=== PATIENT | female | born 1985 | race Caucasian/White ===

== ENCOUNTER 2023-09-25 07:03 | Inpatient (IN) | payer OTHER, SELFPAY ==
[2023-09-25] VITALS (28 sets, daily range): BP systolic 95–121; BP diastolic 48–77; PULSE 109–137; RESP 20–40; TEMP 36.4–39.9; O2SAT 86–98; BMI 36.8; BMI 39.7
--- NOTE | 2023-09-25 07:13 | EKG12_ITS ---
Test Reason : SOB Blood Pressure : / mmHG Vent. Rate : 134 BPM Atrial Rate : 134 BPM P-R Int : 130 ms QRS Dur : 090 ms QT Int : 306 ms P-R-T Axes : 041 088 -02 degrees QTc Int : [address] & T wave abnormality, consider anterior ischemia Abnormal ECG Confirmed by DAYAMI HOPPER, KEON ([id number]), associate entertainment editor JOSE L ALBA ([id number]) on 09/26/2023 5:57:13 AM Referred By: Confirmed By:KEON STOCK MD
--- NOTE | 2023-09-25 07:13 | RAD_ITS ---
EXAM: XR CHEST, 1 VIEW CLINICAL INDICATION: Shortness of breath TECHNIQUE: 2 portable upright frontal views of the chest are obtained at 7:29 and 7:31 AM. COMPARISON: No relevant prior studies available. FINDINGS: Patient is rotated to the right. LUNGS AND PLEURAL SPACES: Asymmetric moderate patchy airspace disease noted throughout the right lung, with sparing of the apex, consistent with pneumonia. Slight blunting of the right lateral costophrenic angle, consistent with a very small right pleural effusion. The left lung is clear. No pneumothorax. No left pleural effusion. HEART: Heart size is borderline enlarged with normal pulmonary vasculature. MEDIASTINUM: Thoracic aorta is minimally elongated. BONES/JOINTS: Thoracic levoscoliosis, probably positional. SOFT TISSUES: Unremarkable. RAD/Chest 1 View (Portable) IMPRESSION: Findings of extensive pneumonia within the right lung. Electronically Signed: Chay Rebollar MD at 7:54 EST ,
--- NOTE | 2023-09-25 07:15 | EX.ED.DYSGE1 ---
HPI History of Present Illness Chief Complaint: Shortness of Breath Narrative Narrative: 87-year-old female brought in by EMS. History and physical is limited secondary to her autism and at times she is nonverbal. History comes from mother. She states that she has been sick for the last 2 days. Yesterday she had a fever of 101 ?F. She last received an antipyretic yesterday evening. This morning, mother noticed that patient's pulse ox was low. She has a history of asthma and has had increased difficulty breathing. Her pulse ox was in the 80s, around 89%. Patient also had a fever this morning. They state that she is not eating much yesterday and was mildly listless as well. [facility] Medical History (Updated 09/25/23 @ 10:52 by Aranza Frias) Asthma Autism Hormonal disorder Sleep apnea Home Medications Bifidobacterium infantis 4 mg capsule (Align) 4 mg PO DAILY [facility] 09/25/23 [History Last Taken 09/24/23] albuterol sulfate 2.5 mg/3 mL (0.083 %) solution for nebulization 2.5 mg continuous nebulization Q6H PRN shortness of breath 09/25/23 [History Last Taken 09/24/23] albuterol sulfate 90 mcg/actuation aerosol inhaler 1 inh inhalation Q6H PRN shortness of breath 09/25/23 [History Last Taken 09/24/23] artificial tears with lanolin eye ointment 1 applic EACH EYE DAILY dry eye relief 09/25/23 [History Last Taken 09/24/23] cetirizine 10 mg tablet 10 mg PO DAILY allergies 09/25/23 [History Last Taken 09/24/23] famotidine 20 mg tablet 20 mg PO QHS acid reflux 09/25/23 [History Last Taken 09/24/23] fluticasone propionate 45 mcg-salmeterol 21 mcg/actuation HFA inhaler (Advair HFA) 2 inh inhalation Q12H shortness of breath 09/25/23 [History Last Taken 09/24/23] fluticasone propionate 50 mcg/actuation nasal spray,suspension 2 spray intranasal DAILY nasal congestion 09/25/23 [History Last Taken 09/24/23] meclizine 25 mg chewable tablet 25 mg PO DAILY PRN vertigo 09/25/23 [History Last Taken Unknown] metformin 1,000 mg tablet 1,000 mg PO BID hormones 09/25/23 [History Last Taken 09/24/23] montelukast 10 mg tablet 10 mg PO QPM allergies 09/25/23 [History Last Taken 09/24/23] norethindrone (contraceptive) 0.35 mg tablet (Ana Rosa) 0.35 mg PO DAILY hormones 09/25/23 [History Last Taken 09/24/23] Allergy/AdvReac Type Severity Reaction Status Date / Time Sulfa (Sulfonamide Allergy Mild Rash Verified 09/25/23 07:14 Antibiotics) Social History Smoking Status: Never smoker ROS ROS ED ROS Narrative Limited secondary to autism. Provided by mother. Constitutional: Positive fever, no chills. Decreased activity and appetite. HEENT: No sore throat. No neck pain. No loss of vision. No rhinorrhea. Cardiovascular: No chest pain. No palpitations. No pedal edema. Respiratory: Occasional cough, positive shortness of breath. Abdominal: No abdominal pain. No nausea. No vomiting. Genitourinary: No dysuria. No hematuria. Musculoskeletal: No myalgias. No arthralgias. Neurologic: No headaches. No dizziness. No lightheadedness. Skin: No rash. No change in color. Psychiatric: No depression. No anxiety. EXAM Physical Exam Narrative Exam Narrative: Temperature 103.9 degrees axillary vital signs noted. HEENT: Normocephalic. Atraumatic. PERRL, EOMI. Neck soft and supple. No point tenderness or step off. Cardiovascular: Tachycardia at 133 bpm. No murmurs, rubs, or gallops appreciated. Respiratory: No tachypnea. Lungs clear to auscultation bilaterally. Breath sounds bilateral bases right greater than left. Gastrointestinal: Abdomen soft, nontender, with normoactive bowel sounds. No rebound or guarding. Neurological: Awake. Alert. Less. Nonfocal, nonlateralizing. Skin: No rash. Normal color. No pallor. Musculoskeletal: No pedal edema. Const Vital Signs: 09/25/23 07:04 09/25/23 07:09 09/25/23 07:15 Temperature 103.9 F H 103.9 F H Temperature Source Axillary Axillary Pulse Rate 133 H 137 H Respiratory Rate 30 H 32 H Respiratory Effort Short of Breath Labored Respiratory Depth Deep Respiratory Pattern Hyperpnea Blood Pressure 119/54 L 102/59 L Blood Pressure Mean 75 73 Pulse Ox 86 90 Oxygen Delivery Method Room Air Nasal Cannula Nasal Cannula Oxygen Flow Rate (L/min) 4 4 09/25/23 07:19 09/25/23 07:27 09/25/23 07:27 Temperature Temperature Source Pulse Rate 131 H Respiratory Rate 27 H Respiratory Effort Respiratory Depth Respiratory Pattern Tachypnea Blood Pressure Blood Pressure Mean Pulse Ox 93 94 Oxygen Delivery Method Nasal Cannula Nasal Cannula Oxygen Flow Rate (L/min) 4 4 09/25/23 08:07 09/25/23 08:54 Temperature 102.8 F H 98.8 F Temperature Source Axillary Axillary Pulse Rate 128 H 113 H Respiratory Rate 20 H 23 H Respiratory Effort Respiratory Depth Respiratory Pattern Blood Pressure 99/48 L 102/52 L Blood Pressure Mean 65 68 Pulse Ox 96 98 Oxygen Delivery Method Nasal Cannula Nasal Cannula Oxygen Flow Rate (L/min) 4 4 Sepsis Attestation Sepsis Alert: Yes Sepsis Attestation: Agree w/Sepsis Date exam was performed: 09/25/23 Time exam was performed: 08:15 Possible Source of Sepsis: Pulmonary Sepsis Organ Dysfunction Criteria Present: Lactic Acid > 2 mmol/L Supportive Findings: X-ray with severe pneumonia right lung, consistent tachycardia. Transient dip of blood pressure systolically to 99. Fluid Resuscitation Fluid resuscitation indicated?: Yes Fluid Resuscitation ordered: 30 ml/kg fluid bolus ordered Amount of fluid ordered: 2,500 Sepsis Note Date exam was performed: 09/25/23 Time exam was performed: 08:48 Sepsis Attestation: Sepsis re-evaluation was performed Response to fluids: Fluid responsive hypotension MDM MDM MDM Narrative Medical decision making narrative: Given her fever, and tachycardia and reported this of breath with history of asthma, concern would be for pneumonia versus upper respiratory infection. UTI is also on the differential but lower probability based on the history and physical. She will be given Tylenol orally for her fever. Sepsis workup was pursued including blood cultures. Initially she will be bolused 1 L. She will be swabbed for COVID, influenza, and RSV. Chest x-ray in 1 view obtained to help rule out pneumonia. I will also obtain a lactic acid and basic laboratory work/sepsis laboratory work. She was hypoxic on room air at 86%. She was placed on 4 L nasal cannula with borderline hypoxia at 90 to 91%. She will be given an albuterol aerosolized treatment. EKG was obtained and interpreted by myself independently as sinus tachycardia at [address]pm with out acute ST changes, although she may have rate dependent ST depression in V3 through V5. Reviewed her laboratory work and she has a leukocytosis of 18.6, hemoglobin normal at 14.4, hematocrit 42.9, platelet count 295. INR is 1.3, electrolyte panel is grossly unremarkable with a sodium normal at 136 and potassium 3.8. BUN normal at 12 with creatinine 0.83. Glucose is elevated at 168 but she has a normal anion gap of 6. AST normal at 23, ALT 26. Urinalysis is negative for infection with WBC 0-5 on microanalysis and negative nitrites. Chest x-ray in 1 view interpreted by myself shows pneumonia of the right lung that is more extensive. This is consistent with her examination of diminished breath sounds at the bilateral bases but right greater than left. This may also explain her hypoxia that has been corrected with 4 L of nasal cannula. She is currently satting 96% on 4 L. Her lactic acid is elevated at 2.1. Given her SIRS criteria, and source of infection with pneumonia, sepsis alert was instituted. She was started on antibiotics in the form of azithromycin and Rocephin. I do have concern given her lethargy for aspiration so Unasyn was also added. At this point in time, patient will be discussed with the hospitalist for admission. Disposition is admit in guarded condition. Of note, I did review her respiratory swabs which are negative for COVID, influenza, and RSV. She did have a transient dip in her blood pressure to 99/48, but with sepsis fluid instituted, her current systolic blood pressure is 105. History & Record Review Discussion w/independent historian: Patient and Family (Mother and brother) Additional record(s) reviewed:: No prior records Lab Data Attestation: I reviewed the patient's lab results. Labs: Laboratory Results - last 24 hr 09/25/23 09/25/23 07:20 07:55 WBC 18.6 H RBC 4.76 Hgb 14.4 Hct 42.9 MCV 90.1 MCH 30.3 MCHC 33.6 RDW Std Deviation 42.2 RDW Coeff of [place] 12.9 Plt Count 295 MPV 8.6 Immature Gran % (Auto) 0.300 Neut % (Auto) 85.5 H Lymph % (Auto) 8.2 L [place] % (Auto) 5.3 Eos % (Auto) 0.3 Baso % (Auto) 0.4 Absolute Neuts (auto) 15.9 H Absolute Lymphs (auto) 1.52 Nucleated RBC % 0 PT 15.8 H INR 1.3 APTT 34.3 Sodium 136 Potassium 3.8 Chloride 105 Carbon Dioxide 25.0 Anion Gap 6 BUN 12 Creatinine 0.83 Estim Creat Clear Calc 119.48 Est GFR (MDRD) Af Amer 101 Est GFR (MDRD) Non-Af 83 BUN/Creatinine Ratio 14.5 Glucose 168 H Lactic Acid 2.1 H* Calcium 8.6 Total Bilirubin 1.70 H AST 23 ALT 26 Alkaline Phosphatase 94 Troponin I High Sens 8 Total Protein 7.5 Albumin 3.4 Globulin 4.1 Albumin/Globulin Ratio 0.8 L Urine Color Yellow Urine Clarity Sl. Cloudy Urine pH 5.0 Ur Specific [place] 1.025 Urine Protein 30 H Urine Glucose (UA) Normal Urine Ketones 15 H Urine Occult Blood 10 H Urine Nitrite Negative Urine Bilirubin Negative Urine Urobilinogen 1 H Ur Leukocyte Esterase 25 H Urine RBC 0-5 SEEN Urine WBC 0-5 SEEN Ur Squamous Epith Cells 0-5 SEEN Urine Bacteria 1+ Urine Mucus 2+ Radiography Chest X-Ray - ED: 1 View and Read by ED Physician Diagnostic Testing: Clinical Impression(s) from Imaging Studies Chest X-Ray 09/25/23 07:13 IMPRESSION: Findings of extensive pneumonia within the right lung. Electronically Signed: Chay Rebollar MD at 7:54 EST , Management Discussion w/another healthcare provider: Hospitalist (Dr. Yahir Tabares) Discharge Plan Dx/Rx/DC Orders Clinical Impression: Hypoxia, Sepsis, Pneumonia Disposition Disposition: Acute Care Hospital [facility] Discharge Date/Time: 09/25/23 10:20
[2023-09-25] MEDS: Albuterol 2.5 MG/3 ML VIAL.NEB. INHALATION ×2 (07:25→19:57)
[2023-09-25] MEDS: 0.9% Normal Saline (1000mL) 1,000 ML 999 ML IV ×4 (07:25→11:13)
[2023-09-25] MEDS: Acetaminophen 500 MG Tablet 1000 MG PO (07:25)
[2023-09-25 07:35] LABS: Absolute Lymphocyte Count 1.52 X10^3/uL (0.83-4.51); Absolute Neutrophil Count 15.9 X10^3/uL (2.0-7.7); Basophil# 0.08 X10^3/uL; Basophil% 0.4 % (0-1); Eosinophil# 0.05 X10^3/uL; Eosinophils% 0.3 % (0-5); Hematocrit 42.9 % (37-47); Hemoglobin 14.4 g/dL (12.0-15.0); Lymphocyte # 1.52 X10^3/ul (0.83-4.51); Lymphocyte % 8.2 % (19-41); Mean Corp Hgb Conc 33.6 g/dL (32-36); Mean Corpuscular Hgb 30.3 pg (27.0-32.0); Mean Corpuscular Volume 90.1 fL (81-99); Mean Platelet Vol. 8.6 fl (6.2-12.0); Monocyte# 0.99 X10^3/uL; Monocyte% 5.3 % (0-10); NRBC Flagged by Analyzer 0 % (0-5); Neutrophil # 15.86 X10^3/uL (2.7-7.7); Neutrophil % 85.5 % (47-70); Platelet Count 295 K/mm3 (150-450); RBC Distribution Width CV 12.9 % (11.6-14.6); RBC Distribution Width SD 42.2 fl (35.1-43.9); Red Blood Count 4.76 M/mm3 (4.2-5.4); White Blood Count 18.6 K/mm3 (4.4-11.0)
[2023-09-25 07:49] LABS: International Normalized Ratio 1.3; Prothrombin Time (Protime)PT. 15.8 SECONDS (11.7-14.9)
[2023-09-25 07:50] LABS: Partial Thromboplast Time 34.3 Seconds (24.1-36.2)
[2023-09-25 08:01] LABS: ALB/GLOB Ratio 0.8 RATIO (0.9-2.4); AST(SGOT) 23 U/L (15-37); Alanine Aminotransfer ALT/SGPT 26 U/L (13-56); Albumin, Serum 3.4 g/dL (3.2-5.0); Alkaline Phosphatase 94 U/L (45-117); Anion Gap 6 (5-15); BUN 12 mg/dL (7-18); BUN/Creat Ratio 14.5 RATIO (10-20); Calcium,Total 8.6 mg/dL (8.5-10.1); Chloride 105 mmol/L (98-107); Creatinine, Serum 0.83 mg/dL (0.55-1.02); EST Glomerular Filtration Rate 83 mL/min (>60); Est Glom Filt Rate - Afr Amer 101 mL/min (>60); Estimated Creatinine Clearance 119.48 ml/min; Globulin 4.1 g/dL (2.2-4.2); Glucose 168 mg/dL (74-106); Potassium 3.8 mmol/L (3.5-5.1); Protein, Total 7.5 g/dL (6.4-8.2); Sodium Level 136 mmol/L (136-145); Troponin-I HS 8 pg/mL (3.0-54.0)
[2023-09-25 08:04] LABS: Lactic Acid 2.1 mmol/L (0.4-1.9)
[2023-09-25 08:21] LABS: Color, Urine Yellow (Yellow); Glucose, Dipstick Normal (Normal); Ketone-Dipstick 15 mg/dl (Negative); Leukocyte Esterase-Dipstick 25 /ul (Negative); Nitrite-Dipstick Negative (Negative); Occult Blood-Urine 10 /ul (Negative); Protein-Dipstick 30 mg/dl (Negative); Specific Gravity, Urine 1.025 (1.002-1.030); Urine Bilirubin Dipstick Negative (Negative); Urine Clarity Sl. Cloudy (Clear); Urine Urobilinogen 1 mg/dl (Normal)
[2023-09-25 08:29] LABS: Bacteria 1+ /hpf (None Seen); Mucous, Urine 2+ /hpf (<or=2+); Red Blood Cells-Urine 0-5 SEEN /hpf (0-5); Squamous Epithelial Cells - UA 0-5 SEEN /hpf (5-10); White Blood Cells 0-5 SEEN /hpf (0-5)
[2023-09-25] MEDS: Ceftriaxone 2 GM in 0.9% Normal Saline (50mL MB+) 50 ML IV (08:40)
[2023-09-25] MEDS: Ampicillin/Sulbactam 3 GM in 0.9% Normal Saline (100mL MB+) 100 ML IV (08:40)
--- NOTE | 2023-09-25 09:34 | PCM.HP.STD ---
HPI - General General Date of Admission: 09/25/23 Date of Service: 09/25/23 Chief Complaint: Fever HPI Narrative SALLY GLASS, is a 37 F with history of autism who was brought to the hospital with fever. Patient could not provide any history history was provided by the mom who was by the bedside. Per patient's mom patient has not been feeling well for the past 2 days. In addition to low-grade fever patient had difficulty breathing. Patient's mom had used her nebulizer without much improvement. She finally called the squad and patient was brought to the emergency department. Her assessment was consistent with sepsis secondary to pneumonia treatment and IV fluids initiated per protocol after cultures have been obtained. Patient admitted to a monitored bed for subsequent management. [facility] Medical History (Updated 09/25/23 @ 12:[address] Yahir Tabares MD) Asthma Autism Hormonal disorder Sleep apnea Home Medications Bifidobacterium infantis 4 mg capsule (Align) 4 mg PO DAILY [facility] 09/25/23 [History Last Taken 09/24/23] albuterol sulfate 2.5 mg/3 mL (0.083 %) solution for nebulization 2.5 mg continuous nebulization Q6H PRN shortness of breath 09/25/23 [History Last Taken 09/24/23] albuterol sulfate 90 mcg/actuation aerosol inhaler 1 inh inhalation Q6H PRN shortness of breath 09/25/23 [History Last Taken 09/24/23] artificial tears with lanolin eye ointment 1 applic EACH EYE DAILY dry eye relief 09/25/23 [History Last Taken 09/24/23] cetirizine 10 mg tablet 10 mg PO DAILY allergies 09/25/23 [History Last Taken 09/24/23] famotidine 20 mg tablet 20 mg PO QHS acid reflux 09/25/23 [History Last Taken 09/24/23] fluticasone propionate 45 mcg-salmeterol 21 mcg/actuation HFA inhaler (Advair HFA) 2 inh inhalation Q12H shortness of breath 09/25/23 [History Last Taken 09/24/23] fluticasone propionate 50 mcg/actuation nasal spray,suspension 2 spray intranasal DAILY nasal congestion 09/25/23 [History Last Taken 09/24/23] meclizine 25 mg chewable tablet 25 mg PO DAILY PRN vertigo 09/25/23 [History Last Taken Unknown] metformin 1,000 mg tablet 1,000 mg PO BID hormones 09/25/23 [History Last Taken 09/24/23] montelukast 10 mg tablet 10 mg PO QPM allergies 09/25/23 [History Last Taken 09/24/23] norethindrone (contraceptive) 0.35 mg tablet (Ana Rosa) 0.35 mg PO DAILY hormones 09/25/23 [History Last Taken 09/24/23] Allergy/AdvReac Type Severity Reaction Status Date / Time Sulfa (Sulfonamide Allergy Mild Rash Verified 09/25/23 07:14 Antibiotics) Social History Smoking Status: Never smoker ROS Review of Systems ROS Unobtainable: due to encephalopathy, due to mental condition and due to mental status Vital Signs Vital Signs Vital Signs: 09/25/23 07:04 09/25/23 07:09 09/25/23 07:15 Temperature 103.9 F H 103.9 F H Temperature Source Axillary Axillary Pulse Rate 133 H 137 H Respiratory Rate 30 H 32 H Respiratory Effort Short of Breath Labored Respiratory Depth Deep Respiratory Pattern Hyperpnea Blood Pressure 119/54 L 102/59 L Blood Pressure Mean 75 73 Pulse Ox 86 90 Oxygen Delivery Method Room Air Nasal Cannula Nasal Cannula Oxygen Flow Rate (L/min) 4 4 09/25/23 07:19 09/25/23 07:27 09/25/23 07:27 Temperature Temperature Source Pulse Rate 131 H Respiratory Rate 27 H Respiratory Effort Respiratory Depth Respiratory Pattern Tachypnea Blood Pressure Blood Pressure Mean Pulse Ox 93 94 Oxygen Delivery Method Nasal Cannula Nasal Cannula Oxygen Flow Rate (L/min) 4 4 09/25/23 08:07 09/25/23 08:54 Temperature 102.8 F H 98.8 F Temperature Source Axillary Axillary Pulse Rate 128 H 113 H Respiratory Rate 20 H 23 H Respiratory Effort Respiratory Depth Respiratory Pattern Blood Pressure 99/48 L 102/52 L Blood Pressure Mean 65 68 Pulse Ox 96 98 Oxygen Delivery Method Nasal Cannula Nasal Cannula Oxygen Flow Rate (L/min) 4 4 Weight Weight: 80 kg Body Mass Index (BMI) 36.8 Physical Exam Narrative GENERAL: Patient appears ill looking HEENT: Atraumatic; normocephalic EYES; Anicteric, Normal Conjunctiva NECK; supple, normal thyroid, RESPIRATORY: Diminished to auscultation CARDIOVASCULAR: Regular S1 S2, tachycardic GI: soft, normoactive bowel sounds, : No Renal angle tenderness; EXTREMITIES: No edema, no clubbing, MUSCULOSKELETAL: no muscle wasting NEURO: Awake; appears to be able to move all extremities SKIN: No Rash PSYCH; noncommunicative Results Lab / Micro Data 09/25/23 07:20 09/25/23 07:20 Labs: Laboratory Results - last 24 hr 09/25/23 07:20: WBC 18.6 H, RBC 4.76, Hgb 14.4, Hct 42.9, MCV 90.1, MCH 30.3, MCHC 33.6, RDW Std Deviation 42.2, RDW Coeff of [place] 12.9, Plt Count 295, MPV 8.6, Immature Gran % (Auto) 0.300, Neut % (Auto) 85.5 H, Lymph % (Auto) 8.2 L, [place] % (Auto) 5.3, Eos % (Auto) 0.3, Baso % (Auto) 0.4, Absolute Neuts (auto) 15.9 H, Absolute Lymphs (auto) 1.52, Nucleated RBC % 0, PT 15.8 H, INR 1.3, APTT 34.3, Sodium 136, Potassium 3.8, Chloride 105, Carbon Dioxide 25.0, Anion Gap 6, BUN 12, Creatinine 0.83, Estim Creat Clear Calc 119.48, Est GFR (MDRD) Af Amer 101, Est GFR (MDRD) Non-Af 83, BUN/Creatinine Ratio 14.5, Glucose 168 H, Lactic Acid 2.1 H*, Calcium 8.6, Total Bilirubin 1.70 H, AST 23, ALT 26, Alkaline Phosphatase 94, Troponin I High Sens 8, Total Protein 7.5, Albumin 3.4, Globulin 4.1, Albumin/Globulin Ratio 0.8 L 09/25/23 07:55: Urine Color Yellow, Urine Clarity Sl. Cloudy, Urine pH 5.0, Ur Specific [place] 1.025, Urine Protein 30 H, Urine Glucose (UA) Normal, Urine Ketones 15 H, Urine Occult Blood 10 H, Urine Nitrite Negative, Urine Bilirubin Negative, Urine Urobilinogen 1 H, Ur Leukocyte Esterase 25 H, Urine RBC 0-5 SEEN, Urine WBC 0-5 SEEN, Ur Squamous Epith Cells 0-5 SEEN, Urine Bacteria 1+, Urine Mucus 2+ Micro: Microbiology 09/25/23 07:29 Interface Orders Rapid RSV (DFA) - Final 09/25/23 07:20 Nasal Secretion SARS-CoV-2 & FLU Antigen (Rapid) - Final Imagaing Radiology Impression Chest X-Ray 09/25/23 07:13 IMPRESSION: Findings of extensive pneumonia within the right lung. Electronically Signed: Chay Rebollar MD at 7:54 EST , Assessment & Plan Assessment/Plan (1) Pneumonia: QUALIFIERS: Pneumonia type: due to unspecified organism Laterality: right Lung location: unspecified part of lung Qualified Code(s): J18.9 - Pneumonia, unspecified organism (2) Sepsis: QUALIFIERS: Sepsis type: sepsis due to unspecified organism Sepsis acute organ dysfunction status: with acute organ dysfunction Severe sepsis acute organ dysfunction type: encephalopathy Severe sepsis shock status: without septic shock Qualified Code(s): A41.9 - Sepsis, unspecified organism; R65.20 - Severe sepsis without septic shock; G93.41 - Metabolic encephalopathy PLAN: Plan Patient is a 37-year-old lady with history of autism, nonverbal brought in with fever and shortness of breath diagnosed with sepsis secondary to pneumonia admitted to monitored bed for further management 1. Sepsis ? Evidenced by presence of infection with SIRS criteria as well as evidence of endorgan dysfunction lactic acidosis and hypoxia. Patient admitted to a monitored bed treatment initiated per protocol with broad-spectrum antibiotic therapy after cultures have been sent. Patient resuscitated with IV fluid with reassessment made 2. Pneumonia ? Patient is at risk for MDR's. Patient started on ceftriaxone, Levaquin and vancomycin. Patient placed on supplemental oxygen 3. Acute hypoxia ? Secondary to patient's pneumonia management as discussed above 4. Mild intermittent asthma ? Did initiate bronchodilator treatment regimen 5. Autism ? Supportive care 6. Class II obesity with BMI of 39.7 ? Complicating care 7. Allergic rhinitis ? Patient is montelukast as well as cetirizine did continue 8. Polycystic ovarian disease ? Patient is on metformin did continue 9. DVT prophylaxis ? SC Lovenox Time spent in the patient's overall evaluation,decision-making process, review of diagnostic data, adjustment of management, discussion with other providers, nursing nursing and ancillary staff involved in patient's care documentation, 75 Minutes Advance planning; did discuss with mom regarding regarding advanced directives as well as CODE STATUS. Did explain the various scenarios involved ( FULL CODE, DNR CCA, DNR CCA with no intubation, and DNR CC and what each meant) plans for patient to remain full code with CPR and intubation if needed. Order was placed. Time spent on discussion 18 minutes. Sepsis Attestation Sepsis Alert: Yes Sepsis Attestation: Agree w/Sepsis Date exam was performed: 09/25/23 Time exam was performed: 09:20 Possible Source of Sepsis: Pulmonary Sepsis Organ Dysfunction Criteria Present: Lactic Acid > 2 mmol/L Fluid Resuscitation Fluid resuscitation indicated?: Yes Fluid Resuscitation ordered: 30 ml/kg fluid bolus ordered Sepsis Note Date exam was performed: 09/25/23 Time exam was performed: 12:31 Sepsis Attestation: Sepsis re-evaluation was performed Response to fluids: Fluid responsive hypotension
[2023-09-25] MEDS: Azithromycin 500 MG in Dextrose 5%-Water (250mL Bag) 250 ML 250 MG IV (09:45)
[2023-09-25] MEDS: Vancomycin HCl 1,250 MG in 0.9% Normal Saline (250mL Bag) 250 ML 167 MG IV (11:20)
--- NOTE | 2023-09-25 11:28 | PCM.RX.CS ---
Consult Antibiotic Management Pharmacy has been consulted to manage selected antiobiotic: Vancomycin Type of Intervention Type of Consult: New start Suspected Infection Suspected Infection: Sepsis and Pneumonia Prior Doses of Antibiotics Prior Doses of Antibiotics Received/Current Regimen: Vancomycin 1250 mg IV x 1 on 09/25/23 @ 1120, patient is also on ceftriaxone 2 grams Q24H, and Levofloxacin 750 mg IV Q24H. Labs Labs: Sodium 136 mmol/L (136-145) 09/25/23 07:20 Potassium 3.8 mmol/L (3.5-5.1) 09/25/23 07:20 Chloride 105 mmol/L (98-107) 09/25/23 07:20 Carbon Dioxide 25.0 mmol/L (21.0-32.0) 09/25/23 07:20 Anion Gap 6 (5-15) 09/25/23 07:20 BUN 12 mg/dL (7-18) 09/25/23 07:20 Creatinine 0.83 mg/dL (0.55-1.02) 09/25/23 07:20 Est GFR (MDRD) Af Amer 101 mL/min (>60) 09/25/23 07:20 Est GFR (MDRD) Non-Af 83 mL/min (>60) 09/25/23 07:20 BUN/Creatinine Ratio 14.5 RATIO (10-20) 09/25/23 07:20 Glucose 168 mg/dL (74-106) H 09/25/23 07:20 Microbiology Microbiology: Microbiology 09/25/23 07:29 Interface Orders Rapid RSV (DFA) - Final 09/25/23 07:20 Nasal Secretion SARS-CoV-2 & FLU Antigen (Rapid) - Final Dosing Weight Weight used for dosin kg Estimated Creatinine Clearance Estimated Creatinine Clearance: ~119 Goal Trough Goal Trough: 15-20 mcg/mL Pharmacy Plan for Drug Dosing Pharmacy Plan for Drug Dosing: Vancomycin 1250 mg IV x 1 on 09/25/23 @ 1120, then vancomycin 1000 mg Q8H starting 09/25 @ 2000 Pharmacy Service will continue to monitor and adjust dosing as required. Follow-Up Labs Follow-Up Labs: Trough: Vancomycin Date/Time Labs Ordered Labs to be done on [date and time ordered]: 09/26/23 @ 1130
[2023-09-25 11:30] LABS: Reflex Lactate? Y
[2023-09-25] MEDS: 0.9% Saline Lock 10 ML Syringe IV (11:46)
[2023-09-25] MEDS: Lactated Ringers 1,000 ML 150 ML IV ×2 (11:48→18:47)
[2023-09-25] MEDS: Enoxaparin 40 MG/0.4 ML Syringe SC (11:49)
--- NOTE | 2023-09-25 12:03 | NS ---
Mom states pt takes food cut up d/t cognitive impairment. Mom did not want foods modified in kitchen, states she will order meals and assist in cutting up food/feeding pt. 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 Stefanie Valente MS, RDN, LD
[2023-09-25 12:49] LABS: Lactic Acid 1.5 mmol/L (0.4-1.9)
[2023-09-25 13:01] LABS: M R Staph aureus DNA By PCR POSITIVE (Negative)
[2023-09-25 13:02] LABS: Probe Check PASS
[2023-09-25] MEDS: Fluticasone 0.05% 1 SPRAY NASAL.SRY 2 SPRAY NASAL (13:02)
[2023-09-25] MEDS: Acetaminophen 325 MG Tablet 650 MG PO ×2 (13:03→21:03)
[2023-09-25] MEDS: metFORMIN HCl 1,000 MG Tablet 1000 MG PO ×2 (13:03→17:00)
[2023-09-25] MEDS: Loratadine 10 MG Tablet PO (13:03)
[2023-09-25] MEDS: levoFLOXacin IV 750 MG/150 ML BAG 100 MG IV (13:07)
[2023-09-25] MEDS: NORETHINDRONE 0.35 MG TABLET 0.349999999999999978 MG PO (13:42)
[2023-09-25] MEDS: Budesonide Respules 0.5 MG/2 ML AMPUL.NEB. INHALATION (19:57)
[2023-09-25] MEDS: Montelukast 10 MG Tablet PO (21:04)
[2023-09-25] MEDS: Famotidine 20 MG Tablet PO (21:04)
[2023-09-25] MEDS: Vancomycin IV 1,000 MG/200 ML BAG 200 MG IV (21:14)
--- NOTE | 2023-09-25 22:00 | NURSING ---
Pt noted with increased work of breathing and increased coarse crackles on right side of lungs. This RN turned off running fluids and notified MD, blood gas, CXR and BNP was done and noted. Pt now resting on venturi mask d/t mouth breathing 12L 50%
[2023-09-26] VITALS (34 sets, daily range): BP systolic 94–140; BP diastolic 64–87; PULSE 92–133; RESP 14–51; TEMP 36.6–39.4; O2SAT 86–109
[2023-09-26] MEDS: Lactated Ringers 1,000 ML 150 ML IV (00:59)
--- NOTE | 2023-09-26 01:38 | RAD_ITS ---
EXAM: XR CHEST, 1 VIEW CLINICAL INDICATION: increased oxygen needs TECHNIQUE: Frontal view of the chest. COMPARISON: 09/25/2023 at 7:29 AM. FINDINGS: LUNGS AND PLEURAL SPACES: Increasing patchy opacification right lung and new patchy opacification left lung base that may be due to pneumonia and/or edema. No pneumothorax. No effusion. HEART: Borderline cardiomegaly. MEDIASTINUM: Central airways and mediastinal contour are unremarkable. BONES/JOINTS: Unremarkable. No acute fracture. SOFT TISSUES: Unremarkable. RAD/Chest 1 View (Portable) IMPRESSION: 1. Increasing patchy opacification right lung and new patchy opacification left lung base that may be due to pneumonia and/or edema. 2. Borderline cardiomegaly. Electronically Signed: Juan Francisco Walls MD at 2:02 EST ,
[2023-09-26 02:22] LABS: Absolute Lymphocyte Count 1.38 X10^3/uL (0.83-4.51); Absolute Neutrophil Count 17.7 X10^3/uL (2.0-7.7); Basophil# 0.06 X10^3/uL; Basophil% 0.3 % (0-1); Eosinophil# 0.05 X10^3/uL; Eosinophils% 0.2 % (0-5); Hematocrit 37.7 % (37-47); Lymphocyte # 1.38 X10^3/ul (0.83-4.51); Lymphocyte % 6.8 % (19-41); Mean Corp Hgb Conc 31.8 g/dL (32-36); Mean Corpuscular Hgb 29.6 pg (27.0-32.0); Mean Corpuscular Volume 93.1 fL (81-99); Mean Platelet Vol. 8.7 fl (6.2-12.0); Monocyte# 0.89 X10^3/uL; Monocyte% 4.4 % (0-10); NRBC Flagged by Analyzer 0 % (0-5); Neutrophil # 17.73 X10^3/uL (2.7-7.7); Neutrophil % 87.8 % (47-70); Platelet Count 218 K/mm3 (150-450); RBC Distribution Width CV 13.3 % (11.6-14.6); RBC Distribution Width SD 45.7 fl (35.1-43.9); Red Blood Count 4.05 M/mm3 (4.2-5.4); White Blood Count 20.2 K/mm3 (4.4-11.0)
[2023-09-26 02:42] LABS: BNP,B-Type NATRIURETIC PEPTIDE 172.4 pg/mL (0-100)
[2023-09-26 02:53] LABS: Anion Gap 7 (5-15); BUN 8 mg/dL (7-18); BUN/Creat Ratio 12.2 RATIO (10-20); Calcium,Total 7.3 mg/dL (8.5-10.1); Chloride 113 mmol/L (98-107); Creatinine, Serum 0.66 mg/dL (0.55-1.02); EST Glomerular Filtration Rate 109 mL/min (>60); Est Glom Filt Rate - Afr Amer 131 mL/min (>60); Glucose 99 mg/dL (74-106); Magnesium 1.8 mg/dL (1.6-2.6); Phosphorus 2.3 mg/dL (2.5-4.9); Potassium 3.9 mmol/L (3.5-5.1); Sodium Level 143 mmol/L (136-145)
[2023-09-26] MEDS: Vancomycin IV 1,000 MG/200 ML BAG 200 MG IV (05:05)
[2023-09-26 06:07] LABS: Blood Gas Specimen Type VEN; O2 Delivery Device Venti Mask; SITE Not entered; VBG BASE EXCESS -3 mmol/L (-1.0-3.5); VBG Bicarbonate 23 mmol/L (22-26); VBG PO2 151 mmHg (25-40); VBG SO2 99 % (50-70); VBG TCO2 24 mmol/L (23-33); VBG pCO2 42.3 mmHg (41-51); VBG pH 7.34 (7.32-7.42)
[2023-09-26] MEDS: Albuterol 2.5 MG/3 ML VIAL.NEB. INHALATION ×4 (07:16→19:00)
[2023-09-26] MEDS: Budesonide Respules 0.5 MG/2 ML AMPUL.NEB. INHALATION ×2 (07:16→19:00)
[2023-09-26] MEDS: Ceftriaxone 2 GM in 0.9% Normal Saline (50mL MB+) 50 ML IV (08:57)
[2023-09-26] MEDS: LORazepam 2 MG/ML Syringe 0.5 MG IV (09:19)
[2023-09-26] MEDS: NORETHINDRONE 0.35 MG TABLET 0.349999999999999978 MG PO (09:21)
[2023-09-26] MEDS: levoFLOXacin IV 750 MG/150 ML BAG 100 MG IV (09:22)
[2023-09-26] MEDS: Fluticasone 0.05% 1 SPRAY NASAL.SRY 2 SPRAY NASAL (09:22)
[2023-09-26] MEDS: Enoxaparin 40 MG/0.4 ML Syringe SC (09:23)
--- NOTE | 2023-09-26 09:40 | CT_ITS ---
STUDY: CTA CHEST REASON FOR EXAM: Female, 37 years old. Hypoxic resp failure RADIATION DOSAGE (If Supplied By Facility): CTDIvol = ( 16.15 ) mGy, DLP = ( 541.64 ) mGycm TECHNIQUE: The examination was performed with the intravenous administration of IV 100mL Isovue-370. Post-processing of the angiographic images was performed, with multiplanar reformation and 3D reconstruction. Individualized dose optimization techniques were used for this CT. COMPARISON: Comparison is made with prior chest radiograph done earlier in the day. FINDINGS: Normal enhancement of the main pulmonary artery and right and left pulmonary arteries. Normal enhancement of the bilateral peripheral pulmonary arteries. There is no demonstrated pulmonary embolism. Normal thoracic aorta and visualized great vessels. There is no demonstrated aortic dissection. Normal heart and pericardium. Normal mediastinum. Normal hilar regions. Normal visualized trachea and bronchi. Loss of volume in the right hemithorax due to extensive consolidation in the right hemithorax involving the right upper lobe, right middle lobe and right lower lobe. Consolidation in the left lower lobe as well as in the left upper lobe. Normal pleura. Normal chest wall structures. Normal osseous structures. Fatty infiltration of the liver. An icepack is seen along the posterior aspect of the patient. CT/CTA Chest W/WO Contrast IMPRESSION: Extensive consolidation in the right hemithorax with the consolidation in the left lower lobe and lingular segment of the left upper lobe. Electronically Signed: Chris Moy MD at 10:36 EST ,
--- NOTE | 2023-09-26 09:40 | ECHOCS_ITS ---
Reason For Study: Dyspnea/SOB Procedure This was a 2D Doppler, Color Flow transthoracic echocardiogram. Very Technically difficult study due to patients condition. Patient scanned sitting upright on 10L oxygen. Limited Views were obtained and contrast was used. Exam performed portable in patient room. Left Ventricle Normal left ventricle. The estimated ejection fraction is 55-60 %. Right Ventricle Normal right ventricle. Normal systolic function. Atria Normal left atrium. Normal right atrium. Mitral Valve The mitral valve is structurally normal. No prolapse or stenosis seen. Trivial mitral valve insufficiency. Tricuspid Valve Normal tricuspid valve. Trivial tricuspid valve insufficiency. Aortic Valve Normal aortic valve. Pulmonic Valve The pulmonic valve is not well visualized. Great Vessels The aortic root is not well visualized. Pericardium/Pleural No pericardial effusion. Medication Diluted definity 2.5ml given slow IV push to enhance endocardial definition. Performed a rapid injection of agitated mix of 9 cc saline and 1cc air to assess for atrial septal defect. MMode/2D Measurements & Calculations LAV(MOD-bp): 30.0 ml LA A4 area: 10.9 cm2 LAV(MOD-bp) Indexed: 17.8 ml/m2 LAV(MOD-sp2): 37.0 ml LAV(MOD-sp4): 24.4 ml Time Measurements MV dec time: 0.16 sec Doppler Measurements & Calculations MV E max jose: 103.4 cm/sec Lat Peak E' Jose: 16.5 cm/sec Med Peak E' Jose: 13.2 cm/sec MV A max jose: 83.6 cm/sec E/E' lat: 6.3 E/E' med: 7.8 MV E/A: 1.2 MV V2 max: 119.4 cm/sec MV P1/2t max jose: 121.4 cm/sec Ao V2 max: 148.3 cm/sec MV max P.7 mmHg MV P1/2t: 43.7 msec Ao max P.9 mmHg MV V2 mean: 73.8 cm/sec MV dec slope: 813.7 cm/sec2 MV mean P.6 mmHg MV V2 VTI: 17.4 cm MVA(P1/2t): 5.0 cm2 LV V1 max: 134.3 cm/sec PA V2 max: 118.3 cm/sec LV V1 max P.2 mmHg ECHO/Echo Complete W/ Contrast Interpretation Summary The estimated ejection fraction is 55-60 %. Contrast echo was used Overall LV systolic function is within normal No previous study to compare. Ordering Physician: Angel Roa Performed By: Terrell Mcpherson RCS
[2023-09-26] MEDS: Acetaminophen 650 MG Suppository RC ×2 (09:42→18:04)
--- NOTE | 2023-09-26 10:15 | NURSING ---
This RN called RT on the way back from pt's Chest CT to met this RN and pt in the room due to sats dropping in the low 80's on 15L venti mask. RT in to asses pt upon arrival back to floor. This RN called chargeback analyst on the way back from pt's Chest CT to notify Dr. Roa that pt needs to be seen. Dr Roa in at bedside to see pt. This RN notified Dr. Roa that pt's respiratory rate has been 30-50's and HR elevated 120-130's and the drop in spo2 to low 80's even on venturi mask. This RN put in order per verbal or from Dr. Roa for Haldol. RT to try vest therapy. Will continue to monitor.
--- NOTE | 2023-09-26 10:20 | CASEMGMT ---
RN CM Face to Face with patient for initial transition planning/care coordination assessment. RN CM introduced self and role at [facility]. Patient lying in bed, alert and confused, mother at bedside. Mother willing to participate in assessment and is able to answer all questions appropriately. Care providers, pharmacy, and demographics verified. Mother wishes to discharge home, will monitor course of treatment and progress with therapy for recommended disposition. Mother states she has no further needs or concerns at this time. CM to follow for discharge planning needs that may arise. PCP: Guru Villasenor Specialists: Follows with eyewear consultant and beveler in [place] Preferred Pharmacy: TBD Insurance: Prescription Benefit: yes Living Will/HPOA: none LNOK: mother Living Arrangements: Patient lives with mother in [place] and mother assists with ADLs. Currently staying with brother in a 2 story home till after first of the year. Transportation: mother DME/HHC: No previous DME. No previous HHC or SNF Disposition Plan: TBD, will monitor course of treatment and progress with therapy. Christen ROBERTSN, RN, CM
[2023-09-26] MEDS: Haloperidol Lactate 5 MG/ML Vial IV (10:30)
[2023-09-26 12:05] LABS: Vancomycin, Trough Level 13.4 ug/mL (5.0-15.0)
--- NOTE | 2023-09-26 12:18 | PCM.RX.CS ---
Consult Antibiotic Management Pharmacy has been consulted to manage selected antiobiotic: Vancomycin Type of Intervention Type of Consult: Follow-up Prior Doses of Antibiotics Prior Doses of Antibiotics Received/Current Regimen: current dose is vanc 1000mg IV q8h Labs Labs: Sodium 143 mmol/L (136-145) 09/26/23 02:02 Potassium 3.9 mmol/L (3.5-5.1) 09/26/23 02:02 Chloride 113 mmol/L (98-107) H 09/26/23 02:02 Carbon Dioxide 23.0 mmol/L (21.0-32.0) 09/26/23 02:02 Anion Gap 7 (5-15) 09/26/23 02:02 BUN 8 mg/dL (7-18) 09/26/23 02:02 Creatinine 0.66 mg/dL (0.55-1.02) 09/26/23 02:02 Est GFR (MDRD) Af Amer 131 mL/min (>60) 09/26/23 02:02 Est GFR (MDRD) Non-Af 109 mL/min (>60) 09/26/23 02:02 BUN/Creatinine Ratio 12.2 RATIO (10-20) 09/26/23 02:02 Glucose 99 mg/dL (74-106) 09/26/23 02:02 Vancomycin Trough 13.4 ug/mL (5.0-15.0) 09/26/23 11:27 Microbiology Microbiology: Microbiology 09/25/23 07:55 Urine, Catheterized Urine Culture - Preliminary Culture exhibits no growth. 09/25/23 08:25 Sputum, Expectorated/Coughed Respiratory Culture - Preliminary Appears to be normal respiratory dianne. Further studies to follow. 09/25/23 07:55 Urine Catheter - Catheter Legionella Antigen - Final 09/25/23 07:55 Urine Catheter - Catheter Streptococcus pneumoniae Antigen (M - Final 09/25/23 07:29 Interface Orders Rapid RSV (DFA) - Final 09/25/23 07:20 Nasal Secretion SARS-CoV-2 & FLU Antigen (Rapid) - Final Dosing Weight Weight used for dosin.4 kg Estimated Creatinine Clearance Estimated Creatinine Clearance: >100ml/min Goal Trough Goal Trough: 15-20 mcg/mL Pharmacy Plan for Drug Dosing Pharmacy Plan for Drug Dosing: The vanc trough drawn at 11:27 today (approx 6.5 hours after the previous dose) was 13.4. It would have been even lower if drawn closer to the 8-hour frequency that it was being dosed at. Therefore, will increase next dose to 1250mg IV q8h. Repeat a trough before the 4th new dose. Pharmacy Service will continue to monitor and adjust dosing as required. Follow-Up Labs Follow-Up Labs: Trough: Vancomycin Date/Time Labs Ordered Labs to be done on [date and time ordered]: 09/27/23 11:30
[2023-09-26] MEDS: Vancomycin HCl 1,250 MG in 0.9% Normal Saline (250mL Bag) 250 ML 167 MG IV ×2 (12:38→21:05)
[2023-09-26 14:30] LABS: Allen Test Positive; Base Excess -5 mmol/L (-2 to +2); Bicarbonate 19.7 mmol/L (22-26); Blood Gas Specimen Type ART; Mode Not entered; O2 Delivery Device HFNC; PO2 61 mmHG (75-100); SITE R Radial; SO2 92 % (95-99); Total Carbon Dioxide 21 mmol/L; pCO2 30.2 mmHg (35-45); pH 7.42 (7.35-7.45)
--- NOTE | 2023-09-26 14:44 | EX.PCM.CONCC ---
Assessment & Plan Assessment/Plan (1) Sepsis: QUALIFIERS: Sepsis type: sepsis due to unspecified organism Sepsis acute organ dysfunction status: with acute organ dysfunction Severe sepsis acute organ dysfunction type: encephalopathy Severe sepsis shock status: without septic shock Qualified Code(s): A41.9 - Sepsis, unspecified organism; R65.20 - Severe sepsis without septic shock; G93.41 - Metabolic encephalopathy (2) Pneumonia: QUALIFIERS: Pneumonia type: due to unspecified organism Laterality: right Lung location: unspecified part of lung Qualified Code(s): J18.9 - Pneumonia, unspecified organism (3) Acute hypoxic respiratory failure: (4) Autism: PLAN: Plan RECOMMENDATIONS: 1. Initiate aggressive pulmonary toileting with vest 2. Continue empiric antibiotics 3. Confirmed full code. Cannot exclude need for intubation 4. Wean oxygen to keep saturations between 90 to 94% 5. Avoid benzodiazepines if possible. Okay to use atypicals 6. Keep n.p.o. until mental status improves IMPRESSIONS: 1. Sepsis secondary to bilateral pneumonia Patient with significant fever, hypoxic respiratory failure and decreased mental status. Patient did receive sepsis fluids and responded well from a blood pressure standpoint. CT scan of the chest shows extensive infiltrates. Patient is being treated with broad-spectrum antibiotics considering previous MDRO. 2. Acute hypoxic respiratory failure secondary to bilateral pneumonia Patient with extensive consolidation on the right and some infiltrates on the left. Patient will need aggressive pulmonary toileting. Cannot exclude the need for intubation for pulmonary toileting and stabilization of overall condition. However, ABG at this time shows appropriate compensation. Increased AA gradient would be suggested for shunt physiology given the level of consolidation. Will need to watch patient for the development of respiratory muscle fatigue. 3. Autism/morbid obesity/allergies/GERD/history of MDRO Complicates care, management, recovery and prognosis. Patient's mother was very clear that she is a full code and would want everything done including intubation and CPR. Patient does carry a diagnosis of asthma, but it is unclear that she would be able to complete a PFT. Patient does have GERD and would be at risk for aspiration. Patient currently receiving vancomycin pending cultures. Will need to avoid benzodiazepines as patient is at high risk for the development of delirium HPI Consult Data Date of Consult: 09/26/23 HPI Narrative HPI Narrative: SALLY GLASS is a 37 F, with past medical history listed below, who presents to us [facility] 10/19/1920 secondary to fever and low oxygen saturations. Patient has severe autism and is nonverbal. History is primarily from the electronic medical record and mother at the bedside. Patient reportedly has a history of asthma and had increased difficulty breathing. Patient also had had decreased appetite 24 hours prior to presentation. In the ER, patient was noted to have a temperature of 103.9 ?F, tachycardic at 137 bpm and requiring 4 L nasal cannula to maintain saturations. Laboratory workup showed a white blood cell count of 18.6, hemoglobin of 14.4 and platelets of 295. INR was within normal limits. Chemistries were significant for a bicarbonate of 25 with normal renal function and elevated glucose of 168. Lactate was elevated at 2.1. Total bili was elevated at 1.7, but other liver enzymes were within normal limits. UA was not consistent with a significant UTI. Chest x-ray showed extensive infiltrates on the right side. Patient did receive sepsis fluids with good response. Patient was then transferred to the PCU for further evaluation. I was asked to evaluate the patient in the PCU secondary to progressive hypoxia. Patient was up to 10 L/min during my evaluation. Patient had recently had an echocardiogram and CT of the chest showing extensive consolidation of the right chest and a mild left pleural effusion with infiltrates. Patient's mother reports that the patient had refused to cough up any secretions. Patient does have a previous similar type of episode requiring intubation for 3 days. Patient's mother reports that she would want everything done. 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 Patient not able to provide additional information during my evaluation. Patient did receive Ativan and Haldol prior to my arrival secondary to concerns of inability to tolerate supplemental oxygen. [facility] Medical History (Updated 09/26/23 @ 14:[address] Mehul Mora MD) Asthma Autism Hormonal disorder Sleep apnea Home Medications Bifidobacterium infantis 4 mg capsule (Align) 4 mg PO DAILY [facility] 09/25/23 [History Last Taken 09/24/23] albuterol sulfate 2.5 mg/3 mL (0.083 %) solution for nebulization 2.5 mg continuous nebulization Q6H PRN shortness of breath 09/25/23 [History Last Taken 09/24/23] albuterol sulfate 90 mcg/actuation aerosol inhaler 1 inh inhalation Q6H PRN shortness of breath 09/25/23 [History Last Taken 09/24/23] artificial tears with lanolin eye ointment 1 applic EACH EYE DAILY dry eye relief 09/25/23 [History Last Taken 09/24/23] cetirizine 10 mg tablet 10 mg PO DAILY allergies 09/25/23 [History Last Taken 09/24/23] famotidine 20 mg tablet 20 mg PO QHS acid reflux 09/25/23 [History Last Taken 09/24/23] fluticasone propionate 45 mcg-salmeterol 21 mcg/actuation HFA inhaler (Advair HFA) 2 inh inhalation Q12H shortness of breath 09/25/23 [History Last Taken 09/24/23] fluticasone propionate 50 mcg/actuation nasal spray,suspension 2 spray intranasal DAILY nasal congestion 09/25/23 [History Last Taken 09/24/23] meclizine 25 mg chewable tablet 25 mg PO DAILY PRN vertigo 09/25/23 [History Last Taken Unknown] metformin 1,000 mg tablet 1,000 mg PO BID hormones 09/25/23 [History Last Taken 09/24/23] montelukast 10 mg tablet 10 mg PO QPM allergies 09/25/23 [History Last Taken 09/24/23] norethindrone (contraceptive) 0.35 mg tablet (Ana Rosa) 0.35 mg PO DAILY hormones 09/25/23 [History Last Taken 09/24/23] Allergy/AdvReac Type Severity Reaction Status Date / Time Sulfa (Sulfonamide Allergy Mild Rash Verified 09/25/23 07:14 Antibiotics) Social History Smoking Status: Never smoker ROS Review of Systems ROS Unobtainable: due to mental status Physical Exam Const Constitutional Narrative: RASS -2. Tachypneic and not making eye contact. Appears ill. HEENT normocephalic and head/scalp atraumatic Eyes PERRL, EOMs intact bilaterally and conjunctivae normal Eyes Narrative: No scleral icterus noted Neck full ROM Resp Resp Narrative: Upper airway noises noted Effort and Inspection: tachypneic and labored Auscultation: rhonchi, wheezes and diminished lung sounds right (Little to no air movement on the right) throughout Cardio S1 normal heart sound, S2 normal heart sound, no murmurs, no rub and no gallops Rate: tachycardic GI normal to inspection, nondistended, normoactive bowel sounds Extremity no clubbing, cyanosis or edema Skin no rashes or lesions noted Neuro Neuro Narrative: Moves all extremities. Not following commands. Sensation appears intact. Psych Activity / Motor Behavior: restless Medical Records Data Attestation: I reviewed the patient's medical records Lab / Micro Data Attestation: I reviewed the patient's lab results. 09/26/23 02:02 09/26/23 02:02 Labs: Laboratory Results - last 24 hr 09/26/23 02:02: WBC 20.2 H, RBC 4.05 L, Hgb 12.0, Hct 37.7, MCV 93.1, MCH 29.6, MCHC 31.8 L D, RDW Std Deviation 45.7 H, RDW Coeff of [place] 13.3, Plt Count 218, MPV 8.7, Immature Gran % (Auto) 0.500, Neut % (Auto) 87.8 H, Lymph % (Auto) 6.8 L, [place] % (Auto) 4.4, Eos % (Auto) 0.2, Baso % (Auto) 0.3, Absolute Neuts (auto) 17.7 H, Absolute Lymphs (auto) 1.38, Nucleated RBC % 0, Sodium 143, Potassium 3.9, Chloride 113 H, Carbon Dioxide 23.0, Anion Gap 7, BUN 8, Creatinine 0.66, Estim Creat Clear Calc 151.00, Est GFR (MDRD) Af Amer 131, Est GFR (MDRD) Non-Af 109, BUN/Creatinine Ratio 12.2, Glucose 99, Calcium 7.3 L, Phosphorus 2.3 L, Magnesium 1.8, B-Natriuretic Peptide 172.4 H 09/26/23 11:27: Vancomycin Trough 13.4 Micro: Microbiology 09/25/23 07:55 Urine, Catheterized Urine Culture - Preliminary Culture exhibits no growth. 09/25/23 08:25 Sputum, Expectorated/Coughed Respiratory Culture - Preliminary Appears to be normal respiratory dianne. Further studies to follow. 09/25/23 07:55 Urine Catheter - Catheter Legionella Antigen - Final 09/25/23 07:55 Urine Catheter - Catheter Streptococcus pneumoniae Antigen (M - Final ABG Data ABG results: ABG 09/26/23 09/26/23 09/26/23 02:13 02:15 14:25 Specimen Type ALICIA ALICIA ART Sample Site Not entered R Radial pH 7.42 Bicarbonate Actual 19.7 L Total CO2 21 Base Excess -5 L O2 Saturation 92 L O2 % 50.0 67.0 ABG pCO2 30.2 L ABG pO2 61 L Adolfo Test Positive VBG pH 7.34 7.34 VBG pO2 151 H 151 H VBG HCO3 23 23 VBG Total CO2 24 24 VBG O2 Sat (Calc) 99 H 99 H VBG Base Excess -3 L -3 L POC Mix VBG pCO2 Pt Tmp 42.3 42.3 O2 Delivery Device Venti Mask Vent Mask HFNC Liter Flow 50.0 Vent Mode Not entered Attestation: I personally reviewed and interpreted this ABG as follows: Interpretation: ABG shows compensated metabolic acidosis with increased AA gradient while on Airvo Imagaing Radiology Impression Chest X-Ray 09/26/23 01:38 IMPRESSION: 1. Increasing patchy opacification right lung and new patchy opacification left lung base that may be due to pneumonia and/or edema. 2. Borderline cardiomegaly. Electronically Signed: Juan Francisco Walls MD at 2:02 EST , Chest CTA 09/26/23 09:40 IMPRESSION: Extensive consolidation in the right hemithorax with the consolidation in the left lower lobe and lingular segment of the left upper lobe. Electronically Signed: Chris Moy MD at 10:36 EST , Echocardiogram 09/26/23 09:40 Interpretation Summary The estimated ejection fraction is 55-60 %. Contrast echo was used Overall LV systolic function is within normal No previous study to compare. Ordering Physician: Angel Roa Performed By: Terrell Mcpherson RCS Charges/Coding Visit Charges Inpatient E&M: 69270 Init Hosp L3
--- NOTE | 2023-09-26 17:20 | PCM.PN.HOSP ---
Reason for Visit Reason for Visit: Diagnoses Sepsis, unspecified organism (09/25/23) Autistic disorder (09/25/23) Metabolic encephalopathy (09/25/23) Pneumonia, unspecified organism (09/25/23) Acute respiratory failure with hypoxia (09/25/23) Severe sepsis without septic shock (09/25/23) Subjective Subjective Patient was seen and examined today, she was on high flow oxygen earlier this morning, I had pulmonary medicine see the patient and a CT scan of the chest was obtained as well as an echo, CT scan showed collapse of multiple areas of the right lung-pulmonary feels this may be due to mucous plugging. Pulmonary medicine placed the patient on a vest which she is able to tolerate so far, she is currently on Airvo and she is tolerating Airvo. Patient is nonverbal but I had discussions with the patient's mother who was present at the time my examination today. Objective Data Objective Data Vital Signs: Vital Signs Temp Pulse Resp BP Pulse Ox O2 Del Method O2 Flow Rate 100.1 F H 114 H 38 H 116/74 97 Airvo 60 09/26/23 16:00 09/26/23 16:00 09/26/23 16:00 09/26/23 16:00 09/26/23 16:00 09/26/23 16:00 09/26/23 15:40 FiO2 66 09/26/23 15:40 Oxygen Flow Rate (L/min) 60 Oxygen Delivery Method Airvo Weight: 80.4 kg Body Mass Index (BMI) 39.7 Intake & Output: Intake and Output for Last 24 Hours 09/24/23 09/25/23 09/26/23 23:59 23:59 23:59 Intake Total 5694.8 / 5694.8 1680 / 1680 Output Total 0 / 0 Balance 5694.8 / 5694.8 1680 / 1680 Lab / Micro Data 09/26/23 02:02 09/26/23 02:02 Labs: Laboratory Results - last 24 hr 09/26/23 02:02: WBC 20.2 H, RBC 4.05 L, Hgb 12.0, Hct 37.7, MCV 93.1, MCH 29.6, MCHC 31.8 L D, RDW Std Deviation 45.7 H, RDW Coeff of [place] 13.3, Plt Count 218, MPV 8.7, Immature Gran % (Auto) 0.500, Neut % (Auto) 87.8 H, Lymph % (Auto) 6.8 L, [place] % (Auto) 4.4, Eos % (Auto) 0.2, Baso % (Auto) 0.3, Absolute Neuts (auto) 17.7 H, Absolute Lymphs (auto) 1.38, Nucleated RBC % 0, Sodium 143, Potassium 3.9, Chloride 113 H, Carbon Dioxide 23.0, Anion Gap 7, BUN 8, Creatinine 0.66, Estim Creat Clear Calc 151.00, Est GFR (MDRD) Af Amer 131, Est GFR (MDRD) Non-Af 109, BUN/Creatinine Ratio 12.2, Glucose 99, Calcium 7.3 L, Phosphorus 2.3 L, Magnesium 1.8, B-Natriuretic Peptide 172.4 H 09/26/23 11:27: Vancomycin Trough 13.4 Micro: Microbiology 09/25/23 08:25 Sputum, Expectorated/Coughed Gram Stain - Final 09/25/23 08:25 Sputum, Expectorated/Coughed Respiratory Culture - Preliminary Appears to be normal respiratory dianne. Further studies to follow. 09/25/23 07:55 Urine, Catheterized Urine Culture - Preliminary Culture exhibits no growth. 09/25/23 07:55 Urine Catheter - Catheter Legionella Antigen - Final 09/25/23 07:55 Urine Catheter - Catheter Streptococcus pneumoniae Antigen (M - Final 09/25/23 07:29 Interface Orders Rapid RSV (DFA) - Final 09/25/23 07:20 Nasal Secretion SARS-CoV-2 & FLU Antigen (Rapid) - Final ABG Data ABG results: ABG 09/26/23 09/26/23 09/26/23 02:13 02:15 14:25 Specimen Type ALICIA ALICIA ART Sample Site Not entered R Radial pH 7.42 Bicarbonate Actual 19.7 L Total CO2 21 Base Excess -5 L O2 Saturation 92 L O2 % 50.0 67.0 ABG pCO2 30.2 L ABG pO2 61 L Adolfo Test Positive VBG pH 7.34 7.34 VBG pO2 151 H 151 H VBG HCO3 23 23 VBG Total CO2 24 24 VBG O2 Sat (Calc) 99 H 99 H VBG Base Excess -3 L -3 L POC Mix VBG pCO2 Pt Tmp 42.3 42.3 O2 Delivery Device Venti Mask Vent Mask HFNC Liter Flow 50.0 Vent Mode Not entered Radiography Diagnostic Testing: Radiology Impression Chest X-Ray 09/26/23 01:38 IMPRESSION: 1. Increasing patchy opacification right lung and new patchy opacification left lung base that may be due to pneumonia and/or edema. 2. Borderline cardiomegaly. Electronically Signed: Juan Francisco Walls MD at 2:02 EST , Chest CTA 09/26/23 09:40 IMPRESSION: Extensive consolidation in the right hemithorax with the consolidation in the left lower lobe and lingular segment of the left upper lobe. Electronically Signed: Chris Moy MD at 10:36 EST , Echocardiogram 09/26/23 09:40 Interpretation Summary The estimated ejection fraction is 55-60 %. Contrast echo was used Overall LV systolic function is within normal No previous study to compare. Ordering Physician: Angel Roa Performed By: Terrell Mcpherson RCS Physical Exam Const alert Constitutional Narrative: Patient is tachypneic with shallow respirations at this time, patient is nonverbal General Appearance: cooperative and well developed Orientation / Consciousness: awake HEENT normocephalic, head/scalp atraumatic and moist oral mucous membranes Eyes PERRL, EOMs intact bilaterally and conjunctivae normal Neck supple, no JVD, thyroid normal and no carotid bruits General: trachea midline Resp Resp Narrative: Patient is tachypneic with shallow respirations, breath sounds are diminished bilaterally Auscultation: Negative for rales, rhonchi or wheezes Cardio regular rate, regular rhythm, S1 normal heart sound, S2 normal heart sound, no murmurs, no rub and no gallops Cardio Narrative: Rate and rhythm is tachycardic GI normal to inspection, nondistended, normoactive bowel sounds, soft to palpation, non-tender and non-distended Extremity no clubbing, cyanosis or edema Skin no rashes or lesions noted General Skin Exam: no breakdown Neuro CN's II-XII intact bilaterally Neuro Narrative: Patient is nonverbal Sensorium / Orientation: awake and alert Psych Psych Narrative: Patient is nonverbal Assessment & Plan Assessment/Plan (1) Acute hypoxic respiratory failure: PLAN: Plan 1. Acute hypoxic respiratory failure secondary to atelectasis and community-acquired pneumonia-Vest therapy will continue, patient will continue on bronchodilators. #2 sepsis secondary to bilateral pneumonia-patient is currently on Levaquin and vancomycin await blood cultures, obtain sputum culture if possible #3 autism-complicates care, medical course, recovery, and prognosis Total clinical time spent by myself addressing the patient's medical issues, reviewing all data, and collaborating with patient's care team: 35 minutes Charges/Coding Visit Charges Inpatient E&M: 44599 Subs Hosp L2
[2023-09-26] MEDS: Lactated Ringers 1,000 ML 75 ML IV (18:05)
--- NOTE | 2023-09-26 20:58 | RAD_ITS ---
INDICATION: increased oxygen needs, tachypneic EXAMINATION/TECHNIQUE: X-RAY - XR Chest 1 View COMPARISON: Earlier same date at 1:32 AM, 09/26/2023 FINDINGS: LIFE-SUPPORT AND LINES: 1. None HEART AND VESSELS: The cardiac silhouette is unchanged. No evidence of congestive failure. LUNGS AND PLEURAL SPACES: Worsening diffuse infiltrate and volume loss throughout the RIGHT lung, layering effusion suspected. Air bronchogram formation at the RIGHT lung base. Additional worsening infiltrate at the LEFT base. No pulmonary mass is noted. MEDIASTINUM AND HILAR REGIONS: No masses adenopathy noted. No areas of calcification. Visualized upper airway is normal in position. BONY ELEMENTS: No acute bony changes noted. RAD/Chest 1 View (Portable) IMPRESSION: 1. Increasing diffuse interstitial infiltrate/pneumonia throughout the RIGHT lung and developing consolidation in the RIGHT infrahilar region. Additional worsening infiltrate/pneumonia at the LEFT lung base. 2. No evidence of congestive failure. 3. Small layering RIGHT effusion suspected. Electronically Signed: Tyson Mccullough MD at 21:18 [facility] ,
[2023-09-26 21:02] LABS: Allen Test Positive; Base Excess -4 mmol/L (-2 to +2); Bicarbonate 20.9 mmol/L (22-26); Blood Gas Specimen Type ART; Mode Not entered; O2 Delivery Device HFNC; PO2 < 34 mmHG (75-100); SITE L Radial; SO2 66 % (95-99); Total Carbon Dioxide 22 mmol/L; pCO2 33.7 mmHg (35-45)
[2023-09-26] MEDS: Haloperidol Lactate 5 MG/ML Vial 1 MG IV (21:21)
[2023-09-26 22:21] LABS: Allen Test Positive; Base Excess -3 mmol/L (-2 to +2); Bicarbonate 21.2 mmol/L (22-26); Blood Gas Specimen Type ART; Mode Not entered; O2 Delivery Device HFNC; PO2 49 mmHG (75-100); SITE L Radial; SO2 86 % (95-99); Total Carbon Dioxide 22 mmol/L; pCO2 33.1 mmHg (35-45); pH 7.41 (7.35-7.45)
[2023-09-26] MEDS: Ondansetron 4 MG/2 ML Vial IV (23:40)
[2023-09-26] MEDS: Etomidate 20 MG/10 ML Vial 10 MG IV (23:42)
[2023-09-26] MEDS: Succinylcholine Chloride 200 MG/10 ML SYRINGE 100 MG IV (23:43)
[2023-09-26] MEDS: fentaNYL drip 100 ML 5 MCG CONT INF (23:49)
[2023-09-26] MEDS: Propofol 10MG/Ml 1,000 MG/100 ML Bottle 4.79999999999999982 MG CONT INF (23:50)
--- NOTE | 2023-09-26 23:55 | RAD_ITS ---
INDICATION: ETT placement EXAMINATION/TECHNIQUE: X-RAY - XR Chest 1 View COMPARISON: CR Chest Sep 26 2023 11:48pm FINDINGS: LINES/DEVICES: Endotracheal tube is seen its tip is at the diamond. An NG tube is seen its tip is below the diaphragm is in good position. LUNGS: Patchy groundglass opacities in both lungs more prominent in the right lung base consistent with bilateral pneumonia. MEDIASTINUM AND CARDIOVASCULAR STRUCTURES: Cardiac silhouette not enlarged. Central airways and mediastinal contour are unremarkable. BONES AND SOFT TISSUES: Unremarkable. RAD/CXR for Line Placement IMPRESSION: Endotracheal tube is seen its tip is at the diamond. An NG tube is seen its tip is below the diaphragm is in good position. Bilateral pneumonia. Electronically Signed: Stephanie Gunter MD at 1:39 EST ,
--- NOTE | 2023-09-26 23:55 | RAD_ITS ---
INDICATION: ETT, OG placement EXAMINATION/TECHNIQUE: X-RAY - XR Chest 1 View COMPARISON: Earlier same date at 9:01 PM. FINDINGS: LIFE-SUPPORT AND LINES: 1. ET tube is in place, projecting at the level of the aortic knob in normal position. 2. NG tube extends into the proximal stomach. HEART AND VESSELS: Cardiac silhouette is unchanged. No congestive failure. LUNGS AND PLEURAL SPACES: Diffuse infiltrate throughout the RIGHT lung, mild consolidation at RIGHT lung base. Perihilar infiltrate also noted on LEFT. No pulmonary mass is noted. MEDIASTINUM AND HILAR REGIONS: No masses adenopathy noted. No areas of calcification. Visualized upper airway is normal in position. BONY ELEMENTS: No acute bony changes noted. RAD/CXR for Line Placement IMPRESSION: 1. Interval placement of ET tube and NG tube in normal position. 2. Improved aeration the RIGHT lung however persistent diffuse infiltrate and areas of airspace consolidation at the RIGHT lung base. 3. Interstitial infiltrate in the LEFT perihilar region. Electronically Signed: Tyson Mccullough MD at 0:34 EST ,
[2023-09-27] VITALS (63 sets, daily range): BP systolic 72–119; BP diastolic 37–86; PULSE 69–114; RESP 14–45; TEMP 37.7–39.6; O2SAT 57–98; BMI 40.2
--- NOTE | 2023-09-27 00:22 | CPS ---
Dr. Francisco notified, ABG ordered venous was obtained
--- NOTE | 2023-09-27 00:24 | CPS ---
Dr. Lovett noified of critical result, ABG ordered, venous gas obtained
--- NOTE | 2023-09-27 00:31 | CPS ---
Patient deteriorating hospitalist notified and agreed for intubation
[2023-09-27 01:15] LABS: CPK Total, Creatine Kinase 283 U/L (26-192); Triglycerides 191 mg/dL
[2023-09-27 01:21] LABS: Allen Test Positive; Base Excess -5 mmol/L (-2 to +2); Bicarbonate 20.4 mmol/L (22-26); Blood Gas Specimen Type ART; Mode AC; O2 Delivery Device Adult Vent; PEEP 8; PO2 41 mmHG (75-100); RR 14; SITE L Radial; SO2 74 % (95-99); Total Carbon Dioxide 22 mmol/L; pCO2 37.5 mmHg (35-45); pH 7.34 (7.35-7.45)
--- NOTE | 2023-09-27 02:03 | NURSING ---
pt transferred to ICU at 2004. Dr. Moeller notified of pts increased work of breathing and respiratory rate in the 40s-50s. Stat CXR and ABG were ordered. At 2099 1 mg Haldol and repeat ABG were ordered. Pt diaphoretic and using accessory muscles to breathe. Haldol was ineffective and pt continued to breathe 40-50 times per minute. Pt was maxed on Airvo at 60L 93% and pts SpO2 was 88% respiratory rate in the 50s. Dr. Moeller notified and intubated pt at 2344.
[2023-09-27] MEDS: Acetaminophen 650 MG/20 ML UDC GT (02:23)
[2023-09-27] MEDS: dexMEDEtomidine 400 MCG in 0.9% Normal Saline (100mL Bag) 96 ML 10.0999999999999996 MCG CONT INF (02:24)
[2023-09-27] MEDS: Propofol 10MG/Ml 1,000 MG/100 ML Bottle 24.1000000000000014 MG CONT INF (02:45)
--- NOTE | 2023-09-27 02:52 | PCM.HOSP.N ---
Hospitalist Note I was contacted by the floor RN shortly after shift change and informed that this patient was breathing approximately 40 to 50 breaths/min in spite of being on max Airvo so she was proactively moved to the ICU for further care. She was treated with IM Haldol but she persisted with severe dyspnea and labored respirations. The patient's mother was at the bedside requesting that she be intubated because she stated in the past her medical teams have waited too long to intubate her causing her to have cardiac arrest when they did try to intervene. She was then placed into the appropriate supine position and induced with 10 mg of propofol and the glide scope was used for the first attempt with patient having immediate blood-tinged vomitus upon insertion of the laryngoscope with patient then suctioned and all devices were removed and she was bagged until she could be given 10 mg of etomidate and 10 mg succinylcholine. She then was intubated quickly on the second attempt with chest x-ray confirming ET tube in good position. She is suspected to have aspirated with copious secretions suctioned with a Yankauer and through her ET tube after intubation. She has still had low oxygen saturations in the 70s in spite of being on a ventilator with 100% FiO2 so the ICU nurses have been asked to contact the skills auditor on-call to give his opinion on increasing her PEEP and potentially using Nimbex to paralyze her as she is fighting the ventilator. IV Flagyl was added to her antibiotic regimen to cover anaerobes and a few hours later she required Levophed gtt. to keep her MAP > 65 mm Hg. [facility] Services [address] [place] [address] CXR for Line Placement MR#: [id number] Acct: [id number] Name: SALLY GLASS Rep #: [id number] : 1985 F 37 From: Stephanie Gunter MD PCP: BURKE BLACK Status: ADM IN Study: CXR for Line Placement Date of Exam: 09/26/23 Exam# [id number] Ordering Dr: Yahir Moeller DO INDICATION: ETT placement EXAMINATION/TECHNIQUE: X-RAY - XR Chest 1 View COMPARISON: CR Chest Sep 26 2023 11:48pm FINDINGS: LINES/DEVICES: Endotracheal tube is seen its tip is at the diamond. An NG tube is seen its tip is below the diaphragm is in good position. LUNGS: Patchy groundglass opacities in both lungs more prominent in the right lung base consistent with bilateral pneumonia. MEDIASTINUM AND CARDIOVASCULAR STRUCTURES: Cardiac silhouette not enlarged. Central airways and mediastinal contour are unremarkable. BONES AND SOFT TISSUES: Unremarkable. RAD/CXR for Line Placement IMPRESSION: Endotracheal tube is seen its tip is at the diamond. An NG tube is seen its tip is below the diaphragm is in good position. Bilateral pneumonia. Electronically Signed: Stephanie Gunter MD at 1:39 EST , CC: Dr. Yahir Moeller, DO; BURKE BLACK ~ Horticulture Supervisor: Signed
[2023-09-27] MEDS: Norepinephrine 8 MG in 0.9% Normal Saline (250mL Bag) 242 ML 9.40000000000000036 MG CONT INF (03:30)
[2023-09-27] MEDS: Lactated Ringers 1,000 ML 125 ML IV ×3 (04:15→20:32)
[2023-09-27] MEDS: Vancomycin HCl 1,250 MG in 0.9% Normal Saline (250mL Bag) 250 ML 167 MG IV (04:15)
[2023-09-27 04:53] LABS: Absolute Lymphocyte Count 0.87 X10^3/uL (0.83-4.51); Absolute Neutrophil Count 12.7 X10^3/uL (2.0-7.7); Basophil# 0.08 X10^3/uL; Basophil% 0.6 % (0-1); Hematocrit 37.5 % (37-47); Hemoglobin 11.7 g/dL (12.0-15.0); Lymphocyte # 0.87 X10^3/ul (0.83-4.51); Lymphocyte % 6.1 % (19-41); Mean Corp Hgb Conc 31.2 g/dL (32-36); Mean Corpuscular Hgb 29.5 pg (27.0-32.0); Mean Corpuscular Volume 94.7 fL (81-99); Mean Platelet Vol. 8.9 fl (6.2-12.0); Monocyte# 0.49 X10^3/uL; Monocyte% 3.5 % (0-10); NRBC Flagged by Analyzer 0.2 % (0-5); Neutrophil # 12.67 X10^3/uL (2.7-7.7); Neutrophil % 89.3 % (47-70); Platelet Count 252 K/mm3 (150-450); RBC Distribution Width CV 13.4 % (11.6-14.6); RBC Distribution Width SD 46.8 fl (35.1-43.9); Red Blood Count 3.96 M/mm3 (4.2-5.4); White Blood Count 14.2 K/mm3 (4.4-11.0)
--- NOTE | 2023-09-27 05:00 | RAD_ITS ---
INDICATION: hypoxia EXAMINATION/TECHNIQUE: X-RAY - XR Chest 1 [facility] FINDINGS: LINES/DEVICES: Endotracheal tube is seen its tip is at 1 cm superior to the diamond. An NG tube is seen its tip is below the diaphragm is in good position. LUNGS: Worsening groundglass opacities in both lungs more prominent in the right lung base consistent with bilateral pneumonia. There are small bilateral pleural effusions. MEDIASTINUM AND CARDIOVASCULAR STRUCTURES: Cardiac silhouette not enlarged. Central airways and mediastinal contour are unremarkable. BONES AND SOFT TISSUES: Unremarkable.
[2023-09-27 05:07] LABS: Anion Gap 8 (5-15); BUN 10 mg/dL (7-18); Calcium,Total 7.4 mg/dL (8.5-10.1); Chloride 108 mmol/L (98-107); Creatinine, Serum 0.71 mg/dL (0.55-1.02); EST Glomerular Filtration Rate 99 mL/min (>60); Est Glom Filt Rate - Afr Amer 119 mL/min (>60); Estimated Creatinine Clearance 140.37 ml/min; Glucose 120 mg/dL (74-106); Potassium 3.8 mmol/L (3.5-5.1); Sodium Level 141 mmol/L (136-145)
[2023-09-27] MEDS: Albuterol 2.5 MG/3 ML VIAL.NEB. INHALATION ×3 (06:37→19:15)
[2023-09-27] MEDS: Budesonide Respules 0.5 MG/2 ML AMPUL.NEB. INHALATION (06:37)
[2023-09-27] MEDS: fentaNYL drip 100 ML 15 MCG CONT INF (07:00)
[2023-09-27] MEDS: Chlorhexidine 15 ML PO ×2 (07:55→23:23)
[2023-09-27] MEDS: CHLORHEXIDINE GLUC 2% CLOTH 1 EACH TOWELETTE TOPICAL (07:55)
--- NOTE | 2023-09-27 08:14 | PCM.PN.HOSP ---
Reason for Visit Reason for Visit: Diagnoses Sepsis, unspecified organism (09/25/23) Autistic disorder (09/25/23) Metabolic encephalopathy (09/25/23) Pneumonia, unspecified organism (09/25/23) Acute respiratory failure with hypoxia (09/25/23) Severe sepsis without septic shock (09/25/23) Objective Data Objective Data Vital Signs: Vital Signs Temp Pulse Resp BP Pulse Ox O2 Del Method O2 Flow Rate 102.6 F H 92 14 98/66 91 Mechanical Ventilator 60 09/27/23 08:00 09/27/23 08:00 09/27/23 08:00 09/27/23 08:00 09/27/23 08:00 09/27/23 08:00 09/26/23 15:40 FiO2 80 09/27/23 08:00 Oxygen Flow Rate (L/min) 60 Oxygen Delivery Method Mechanical Ventilator Weight: 179 lb 8 oz Body Mass Index (BMI) 40.2 Intake & Output: Intake and Output for Last 24 Hours 09/25/23 09/26/23 09/27/23 23:59 23:59 23:59 Intake Total 5694.8 / 5694.8 3021.67 / 3023.39 1445.71 / 1445.71 Output Total 0 / 0 300 / 300 600 / 600 Balance 5694.8 / 5694.8 2721.67 / 2723.39 845.71 / 845.71 Lab / Micro Data 09/27/23 04:40 09/27/23 04:40 Labs: Laboratory Results - last 24 hr 09/26/23 11:27: Vancomycin Trough 13.4 09/27/23 00:40: Total Creatine Kinase 283 H, Triglycerides 191 09/27/23 04:40: WBC 14.2 H, RBC 3.96 L, Hgb 11.7 L, Hct 37.5, MCV 94.7, MCH 29.5, MCHC 31.2 L, RDW Std Deviation 46.8 H, RDW Coeff of [place] 13.4, Plt Count 252, MPV 8.9, Immature Gran % (Auto) 0.500, Neut % (Auto) 89.3 H, Lymph % (Auto) 6.1 L, [place] % (Auto) 3.5, Eos % (Auto) 0.0, Baso % (Auto) 0.6, Absolute Neuts (auto) 12.7 H, Absolute Lymphs (auto) 0.87, Nucleated RBC % 0.2, Sodium 141, Potassium 3.8, Chloride 108 H, Carbon Dioxide 25.0, Anion Gap 8, BUN 10, Creatinine 0.71, Estim Creat Clear Calc 140.37, Est GFR (MDRD) Af Amer 119, Est GFR (MDRD) Non-Af 99, BUN/Creatinine Ratio 14.0, Glucose 120 H, Calcium 7.4 L Micro: Microbiology 09/25/23 08:00 Blood Culture (Wb) - Left Hand Blood Culture - Preliminary No growth in 48 hours. 09/25/23 07:20 Blood Culture (Wb) - Left Hand Blood Culture - Preliminary No growth in 48 hours. 09/27/23 04:00 Stool Stool Occult Blood (YVETTE) - Final 09/25/23 08:25 Sputum, Expectorated/Coughed Gram Stain - Final 09/25/23 08:25 Sputum, Expectorated/Coughed Respiratory Culture - Preliminary Appears to be normal respiratory dianne. Further studies to follow. 09/25/23 07:55 Urine, Catheterized Urine Culture - Preliminary Culture exhibits no growth. 09/25/23 07:55 Urine Catheter - Catheter Legionella Antigen - Final 09/25/23 07:55 Urine Catheter - Catheter Streptococcus pneumoniae Antigen (M - Final 09/25/23 07:29 Interface Orders Rapid RSV (DFA) - Final 09/25/23 07:20 Nasal Secretion SARS-CoV-2 & FLU Antigen (Rapid) - Final ABG Data ABG results: ABG 09/26/23 09/26/23 09/26/23 02:15 14:25 20:58 Specimen Type Cancelled ART ART Sample Site Cancelled R Radial L Radial pH 7.42 7.40 Bicarbonate Actual 19.7 L 20.9 L Total CO2 21 22 Base Excess -5 L -4 L O2 Saturation 92 L 66 L O2 % Cancelled 67.0 70.0 ABG pCO2 30.2 L 33.7 L ABG pO2 61 L < 34 L* Adolfo Test Positive Positive VBG pH Cancelled VBG pH (Temp Correct) Cancelled VBG pCO2 (Temp Corrct Cancelled VBG pO2 Cancelled VBG HCO3 Cancelled VBG Total CO2 Cancelled VBG O2 Sat (Calc) Cancelled VBG Base Excess Cancelled POC Mix VBG pCO2 Pt Tmp Cancelled Respiration Rate Cancelled O2 Delivery Device Cancelled HFNC HFNC Liter Flow Cancelled Minute Volume Cancelled Vent Mode Not entered Not entered Inspiratory Time Cancelled Expiratory Time Cancelled Tidal Volume Cancelled Mean Airway Pressure Cancelled POC PEEP Cancelled Peak Inspir Pressure Cancelled POC Pressure Suppt Cancelled Pressure Control Cancelled EPAP Cancelled IPAP Cancelled Blood Gas Comments Cancelled Crit Call To/Read Back Cancelled Yes Blood Gas Notified Whom Cancelled Blood Gas Notified Time Cancelled 21:00:23 Clinical Comments Cancelled 09/26/23 09/27/23 22:17 01:17 Specimen Type ART ART Sample Site L Radial L Radial pH 7.41 7.34 L Bicarbonate Actual 21.2 L 20.4 L Total CO2 22 22 Base Excess -3 L -5 L O2 Saturation 86 L 74 L O2 % 70.0 100.0 ABG pCO2 33.1 L 37.5 ABG pO2 49 L 41 L Adolfo Test Positive Positive VBG pH VBG pH (Temp Correct) VBG pCO2 (Temp Corrct VBG pO2 VBG HCO3 VBG Total CO2 VBG O2 Sat (Calc) VBG Base Excess POC Mix VBG pCO2 Pt Tmp Respiration Rate 14 O2 Delivery Device HFNC Adult Vent Liter Flow Minute Volume Vent Mode Not entered AC Inspiratory Time Expiratory Time Tidal Volume 450.0 Mean Airway Pressure POC PEEP 8 Peak Inspir Pressure POC Pressure Suppt Pressure Control EPAP IPAP Blood Gas Comments Crit Call To/Read Back Blood Gas Notified Whom Blood Gas Notified Time Clinical Comments Radiography Diagnostic Testing: Radiology Impression Chest CTA 09/26/23 09:40 IMPRESSION: Extensive consolidation in the right hemithorax with the consolidation in the left lower lobe and lingular segment of the left upper lobe. Electronically Signed: Chris Moy MD at 10:36 EST , Echocardiogram 09/26/23 09:40 Interpretation Summary The estimated ejection fraction is 55-60 %. Contrast echo was used Overall LV systolic function is within normal No previous study to compare. Ordering Physician: Angel Roa Performed By: Terrell Mcpherson RCS Chest X-Ray 09/26/23 20:58 IMPRESSION: 1. Increasing diffuse interstitial infiltrate/pneumonia throughout the RIGHT lung and developing consolidation in the RIGHT infrahilar region. Additional worsening infiltrate/pneumonia at the LEFT lung base. 2. No evidence of congestive failure. 3. Small layering RIGHT effusion suspected. Electronically Signed: Tyson Mccullough MD at 21:18 EST , Chest X-Ray 09/26/23 23:55 IMPRESSION: 1. Interval placement of ET tube and NG tube in normal position. 2. Improved aeration the RIGHT lung however persistent diffuse infiltrate and areas of airspace consolidation at the RIGHT lung base. 3. Interstitial infiltrate in the LEFT perihilar region. Electronically Signed: Tyson Mccullough MD at 0:34 EST , Chest X-Ray 09/26/23 23:55 IMPRESSION: Endotracheal tube is seen its tip is at the diamond. An NG tube is seen its tip is below the diaphragm is in good position. Bilateral pneumonia. Electronically Signed: Stpehanie Gunter MD at 1:39 EST , Chest X-Ray 09/27/23 05:00 IMPRESSION: Worsening bilateral pneumonia. Electronically Signed: Stephanie Gunter MD at 8:00 EST , Physical Exam Narrative Seen and examined. Overnight events noted. Discussed with the nursing staff. Overnight patient was intubated. She is on Levophed and fentanyl drip. On Precedex drip. On Levophed 6 mcg/min.Patient was on high vent settings, 80% FiO2 16 PEEP. Had 600 mL urine output last night. 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 Physical exam: General: Sedated, intubated on prone position HEENT: Atraumatic, Normocephalic. Face down Oral: ET and OG tube. OG tube aspirate is brownish/coffee colored Neck: Supple, No JVD, Negative Carotid Bruits Lungs: Air entry diminished in bilateral lung bases. Bilateral coarse crepitations. Cardiovascular: Regular rate, Regular Rhythm, muffled heart sounds. Abdomen: Could not examine abdomen. She has appropriation : Rivera catheter dark urine. No renal angle tenderness. Extremities: Mild 1+ edema. Skin: No rashes, No breakdown Musculoskeletal: No Tenderness to Palpation of Joints or Extremities. ROM and muscle strength not evaluated. Neurological: Sedated. Detailed neuroexam could not be done as patient is very sick. Psych/Mental Status: Intubated. Assessment & Plan Assessment/Plan (1) Acute hypoxic respiratory failure: PLAN: Plan 1. Acute hypoxic respiratory failure secondary to atelectasis and bilateral community-acquired pneumonia-patient is intubated on high vent settings, 80% FiO2, 16 PEEP. Currently patient on prone position. Patient was seen by pipe organ mechanic and instruction was to keep on prone position until 11 PM if patient can tolerate. Patient on propofol fentanyl and Precedex drip. #2 septic secondary to bilateral pneumonia- the patient presented with sepsis with clinical indicators of fever, decreased responsiveness/mental status of due to bilateral pneumonia with acute sepsis-related organ dysfunction as evidenced by fluid resistant hypotension which which required vasopressors/levo. Continue broad-spectrum IV antibiotic Levaquin and vancomycin. #3 autism-complicates care, medical course, recovery, and prognosis Charges/Coding Visit Charges Inpatient E&M: 20320 [facility] Hosp L3
[2023-09-27] MEDS: Propofol 10MG/Ml 1,000 MG/100 ML Bottle 14.5 MG CONT INF (08:45)
[2023-09-27] MEDS: TITRATION PARAMETER CHANGE 1 EACH IV (09:50)
[2023-09-27] MEDS: Vancomycin Trough/Random Due 1 LAB MC ×3 (09:50→22:06)
--- NOTE | 2023-09-27 09:54 | OP.BRONCH_ITS ---
Patient Name: Cole Saeed Procedure Date: 09/27/2023 6:13 AM Date of : 1985 Age: 37 Procedure: Bronchoscopy Indications: Pneumonia Providers: Mehul Mora MD Complications: No immediate complications Procedure: Pre-Anesthesia Assessment: - A History and Physical has been performed. The patient's medications, allergies and sensitivities have been reviewed. - The patient is unable to give consent secondary to the patient being legally incompetent to consent. The risks and benefits of the procedure and the sedation options and risks were discussed with the patient's mother. All questions were answered and informed consent was obtained. - Using IV propofol under the supervision of a constanbt infusion was determined to be medically necessary for this procedure based on age 18 or younger and uncooperative or combative patient. After I obtained informed consent, the scope was passed under direct vision. Throughout the procedure, the patient's blood pressure, pulse, and oxygen saturations were monitored continuously. The bronchoscope was introduced through the mouth, via the endotracheal tube and advanced to the tracheobronchial tree. The procedure was accomplished without difficulty. The patient tolerated the procedure well. Findings: The endotracheal tube is in good position. The visualized portion of the trachea is of normal caliber. The diamond is sharp. The tracheobronchial tree was examined to at least the first subsegmental level. Bronchial mucosa did show generalized erythema, but anatomy was normal; there are no endobronchial lesions. Patient did have thin purulent secretions, but no obstructing mucous plugs. The bronchoscope was advanced until wedged at the desired location for bronchoalveolar lavage. BAL was performed in the RML medial segment (B5) of the lung and sent for cell count, bacterial culture, viral smears & culture, and fungal & AFB analysis. 60 mL of fluid were instilled. 25 mL were returned. The return was bloody. There were no mucoid plugs in the return fluid. Recommendation: - Await BAL results. Procedure Code(s): --- Professional --- 85618, Bronchoscopy, rigid or flexible, including fluoroscopic guidance, when performed; diagnostic, with cell washing, when performed (separate procedure) Diagnosis Code(s): --- Professional --- J18.9, Pneumonia, unspecified organism CPT copyright 2021 [employer]. All rights reserved. The codes documented in this report are preliminary and upon protection mgr review may be revised to meet current compliance requirements. MD Mehul Roberts MD 09/27/2023 9:54:00 AM This report has been signed electronically. Number of Addenda: 0 Note Initiated On: 09/27/2023 6:13 AM
[2023-09-27] MEDS: Pantoprazole Sodium 80 MG in 0.9% Normal Saline (50mL Bag) 15 ML 420 MG IV BOLUS (10:04)
[2023-09-27] MEDS: levoFLOXacin IV 750 MG/150 ML BAG 100 MG IV (10:04)
--- NOTE | 2023-09-27 10:05 | PCM.PN.INT ---
Assessment & Plan Assessment/Plan (1) Sepsis: QUALIFIERS: Sepsis type: sepsis due to unspecified organism Sepsis acute organ dysfunction status: with acute organ dysfunction Severe sepsis acute organ dysfunction type: encephalopathy Severe sepsis shock status: without septic shock Qualified Code(s): A41.9 - Sepsis, unspecified organism; R65.20 - Severe sepsis without septic shock; G93.41 - Metabolic encephalopathy (2) Pneumonia: QUALIFIERS: Pneumonia type: due to unspecified organism Laterality: right Lung location: unspecified part of lung Qualified Code(s): J18.9 - Pneumonia, unspecified organism (3) Acute hypoxic respiratory failure: (4) Autism: PLAN: Plan RECOMMENDATIONS: 1. Continue prone positioning per protocol 2. Continue empiric antibiotics 3. Discontinue Lovenox and add PPI twice daily 4. Wean oxygen to keep saturations between 90 to 94% 5. Decrease propofol if possible. Continue fentanyl and Precedex 6. Aggressive bowel regimen IMPRESSIONS: 1. Septic shock secondary to bilateral pneumonia Patient with significant fever, hypoxic respiratory failure and decreased mental status. Patient did receive sepsis fluids and responded well from a blood pressure standpoint initially. However, patient now requiring pressors. This may be secondary to propofol or acidosis related to respiratory issues. CT scan of the chest shows extensive infiltrates. Patient is being treated with broad-spectrum antibiotics considering previous MDRO. 2. Acute hypoxic respiratory failure secondary to bilateral pneumonia Patient with extensive consolidation on the right and some infiltrates on the left. Bronchoscopy this morning did not show any significant central mucous plugging. It is unclear if this has been placed peripheral secondary to high PEEP requirements. Patient is responding to prone positioning spoke with family today. Patient has been on inhaled steroids for several years secondary to a diagnosis of asthma, but was unable to have a formal PFT. Given severity of illness, will start patient empirically on Solu-Medrol and discontinue budesonide. 3. Autism/morbid obesity/allergies/GERD/history of MDRO Complicates care, management, recovery and prognosis. Patient's mother was very clear that she is a full code and would want everything done including intubation and CPR. Patient carries a diagnosis of GERD, but has some coffee-ground type gastric secretions. It is unclear if this is secondary to aspiration of bloody respiratory secretions or possible upper GI source. Patient will be placed on PPI twice daily. Patient currently receiving vancomycin pending cultures. Will need to avoid benzodiazepines as patient is at high risk for the development of delirium TIME: 77 minutes critical care time, excluding bronchoscopy, was spent addressing patient's septic shock, hypoxic respiratory failure, pneumonia, discussing goals of therapy with family, review of all data and collaboration with care team Subjective Subjective Patient with significant decompensation overnight leading to intubation. Patient very hypoxic. Patient on elevated PEEP. Attempts at APRV were unsuccessful. Prior to pronation, patient did have a bronchoscopy to evaluate for significant mucous plugging. On my evaluation this morning, patient was intubated and sedated. Did discuss with mother and father at length about patient's current condition. Objective Data Objective Data Patient did have a bronchoscopy this morning independent of critical care time. This did show erythema and purulent sputum, but no obstructing mucous plugs. ET tube was in appropriate position. Patient has responded to prone positioning and is gone from 100% FiO2 and PEEP of 16 down to 60% FiO2. Patient's pressor requirements also improved following pronation. Vital Signs: Vital Signs Temp Pulse Resp BP Pulse Ox O2 Del Method O2 Flow Rate 38.8 C H 85 14 105/73 97 Mechanical Ventilator 60 09/27/23 09:00 09/27/23 09:00 09/27/23 09:00 09/27/23 09:45 09/27/23 09:00 09/27/23 09:00 09/26/23 15:40 FiO2 60 09/27/23 09:00 Oxygen Flow Rate (L/min) 60 Oxygen Delivery Method Mechanical Ventilator Weight: 81.42 kg Body Mass Index (BMI) 40.2 Intake & Output: Intake and Output for Last 24 Hours 09/25/23 09/26/23 09/27/23 23:59 23:59 23:59 Intake Total 5694.8 / 5694.8 3021.67 / 3023.39 1490.23 / 1490.23 Output Total 0 / 0 300 / 300 600 / 600 Balance 5694.8 / 5694.8 2721.67 / 2723.39 890.23 / 890.23 Lab / Micro Data Attestation: I reviewed the patient's lab results. 09/27/23 04:40 09/27/23 04:40 Labs: Laboratory Results - last 24 hr 09/26/23 11:27: Vancomycin Trough 13.4 09/27/23 00:40: Total Creatine Kinase 283 H, Triglycerides 191 12/21/23 04:40: WBC 14.2 H, RBC 3.96 L, Hgb 11.7 L, Hct 37.5, MCV 94.7, MCH 29.5, MCHC 31.2 L, RDW Std Deviation 46.8 H, RDW Coeff of [place] 13.4, Plt Count 252, MPV 8.9, Immature Gran % (Auto) 0.500, Neut % (Auto) 89.3 H, Lymph % (Auto) 6.1 L, [place] % (Auto) 3.5, Eos % (Auto) 0.0, Baso % (Auto) 0.6, Absolute Neuts (auto) 12.7 H, Absolute Lymphs (auto) 0.87, Nucleated RBC % 0.2, Sodium 141, Potassium 3.8, Chloride 108 H, Carbon Dioxide 25.0, Anion Gap 8, BUN 10, Creatinine 0.71, Estim Creat Clear Calc 140.37, Est GFR (MDRD) Af Amer 119, Est GFR (MDRD) Non-Af 99, BUN/Creatinine Ratio 14.0, Glucose 120 H, Calcium 7.4 L Micro: Microbiology 09/27/23 07:30 Bronchial Lavage - Right Middle Lobe Gram Stain - Final 09/25/23 07:55 Urine, Catheterized Urine Culture - Final Culture exhibits no growth. 09/25/23 08:25 Sputum, Expectorated/Coughed Gram Stain - Final 09/25/23 08:25 Sputum, Expectorated/Coughed Respiratory Culture - Final 09/25/23 08:00 Blood Culture (Wb) - Left Hand Blood Culture - Preliminary No growth in 48 hours. 09/25/23 07:20 Blood Culture (Wb) - Left Hand Blood Culture - Preliminary No growth in 48 hours. 09/27/23 04:00 Stool Stool Occult Blood (YVETTE) - Final 09/25/23 07:55 Urine Catheter - Catheter Legionella Antigen - Final 09/25/23 07:55 Urine Catheter - Catheter Streptococcus pneumoniae Antigen (M - Final 09/25/23 07:29 Interface Orders Rapid RSV (DFA) - Final 09/25/23 07:20 Nasal Secretion SARS-CoV-2 & FLU Antigen (Rapid) - Final ABG Data ABG results: ABG 09/26/23 09/26/23 09/26/23 02:15 14:25 20:58 Specimen Type Cancelled ART ART Sample Site Cancelled R Radial L Radial pH 7.42 7.40 Bicarbonate Actual 19.7 L 20.9 L Total CO2 21 22 Base Excess -5 L -4 L O2 Saturation 92 L 66 L O2 % Cancelled 67.0 70.0 ABG pCO2 30.2 L 33.7 L ABG pO2 61 L < 34 L* Adolfo Test Positive Positive VBG pH Cancelled VBG pH (Temp Correct) Cancelled VBG pCO2 (Temp Corrct Cancelled VBG pO2 Cancelled VBG HCO3 Cancelled VBG Total CO2 Cancelled VBG O2 Sat (Calc) Cancelled VBG Base Excess Cancelled POC Mix VBG pCO2 Pt Tmp Cancelled Respiration Rate Cancelled O2 Delivery Device Cancelled HFNC HFNC Liter Flow Cancelled Minute Volume Cancelled Vent Mode Not entered Not entered Inspiratory Time Cancelled Expiratory Time Cancelled Tidal Volume Cancelled Mean Airway Pressure Cancelled POC PEEP Cancelled Peak Inspir Pressure Cancelled POC Pressure Suppt Cancelled Pressure Control Cancelled EPAP Cancelled IPAP Cancelled Blood Gas Comments Cancelled Crit Call To/Read Back Cancelled Yes Blood Gas Notified Whom Cancelled Blood Gas Notified Time Cancelled 21:00:23 Clinical Comments Cancelled 09/26/23 09/27/23 22:17 01:17 Specimen Type ART ART Sample Site L Radial L Radial pH 7.41 7.34 L Bicarbonate Actual 21.2 L 20.4 L Total CO2 22 22 Base Excess -3 L -5 L O2 Saturation 86 L 74 L O2 % 70.0 100.0 ABG pCO2 33.1 L 37.5 ABG pO2 49 L 41 L Adolfo Test Positive Positive VBG pH VBG pH (Temp Correct) VBG pCO2 (Temp Corrct VBG pO2 VBG HCO3 VBG Total CO2 VBG O2 Sat (Calc) VBG Base Excess POC Mix VBG pCO2 Pt Tmp Respiration Rate 14 O2 Delivery Device HFNC Adult Vent Liter Flow Minute Volume Vent Mode Not entered AC Inspiratory Time Expiratory Time Tidal Volume 450.0 Mean Airway Pressure POC PEEP 8 Peak Inspir Pressure POC Pressure Suppt Pressure Control EPAP IPAP Blood Gas Comments Crit Call To/Read Back Blood Gas Notified Whom Blood Gas Notified Time Clinical Comments Radiography Diagnostic Testing: Radiology Impression Chest CTA 09/26/23 09:40 IMPRESSION: Extensive consolidation in the right hemithorax with the consolidation in the left lower lobe and lingular segment of the left upper lobe. Electronically Signed: Chris Moy MD at 10:36 EST , Echocardiogram 09/26/23 09:40 Interpretation Summary The estimated ejection fraction is 55-60 %. Contrast echo was used Overall LV systolic function is within normal No previous study to compare. Ordering Physician: Angel Roa Performed By: Terrell Mcpherson RCS Chest X-Ray 09/26/23 20:58 IMPRESSION: 1. Increasing diffuse interstitial infiltrate/pneumonia throughout the RIGHT lung and developing consolidation in the RIGHT infrahilar region. Additional worsening infiltrate/pneumonia at the LEFT lung base. 2. No evidence of congestive failure. 3. Small layering RIGHT effusion suspected. Electronically Signed: Tyson Mccullough MD at 21:18 EST , Chest X-Ray 09/26/23 23:55 IMPRESSION: 1. Interval placement of ET tube and NG tube in normal position. 2. Improved aeration the RIGHT lung however persistent diffuse infiltrate and areas of airspace consolidation at the RIGHT lung base. 3. Interstitial infiltrate in the LEFT perihilar region. Electronically Signed: Tyson Mccullough MD at 0:34 EST , Chest X-Ray 09/26/23 23:55 IMPRESSION: Endotracheal tube is seen its tip is at the diamond. An NG tube is seen its tip is below the diaphragm is in good position. Bilateral pneumonia. Electronically Signed: Stephanie Gunter MD at 1:39 EST Reading Location ID and State: [facility] / [place] Tel , Service support , Chest X-Ray 09/27/23 05:00 IMPRESSION: Worsening bilateral pneumonia. Electronically Signed: Stephanie Gunter MD at 8:00 EST , Physical Exam Const Constitutional Narrative: RASS -2. Tachypneic and not making eye contact. Appears ill. Hirsutism noted General Appearance: patient mechanically ventilated HEENT normocephalic and head/scalp atraumatic HEENT Narrative: Dark coffee ground material noted out of OG Mouth: endotracheal tube in place and OG tube in place Eyes PERRL, EOMs intact bilaterally and conjunctivae normal Eyes Narrative: No scleral icterus noted Neck full ROM Resp Resp Narrative: Fair vent synchrony noted Auscultation: rhonchi, wheezes and diminished lung sounds right (Little to no air movement on the right) throughout Cardio S1 normal heart sound, S2 normal heart sound, no murmurs, no rub and no gallops Rate: tachycardic GI normal to inspection, nondistended, normoactive bowel sounds Extremity no clubbing, cyanosis or edema Skin no rashes or lesions noted Neuro Neuro Narrative: Moves all extremities. Not following commands. Sensation appears intact. Psych Mood & Affect: flat affect Charges/Coding Procedures Hospitalists Procedures: 54324 Critical Care 1st Hr Multi Select Codes Hospitalists' Procedures Procedures: 57903 Critical Care Addl 30 Min
[2023-09-27 10:56] LABS: Vancomycin, Trough Level 26.3 ug/mL (5.0-15.0)
--- NOTE | 2023-09-27 11:33 | PCM.RX.CS ---
Consult Antibiotic Management Pharmacy has been consulted to manage selected antiobiotic: Vancomycin Type of Intervention Type of Consult: Follow-up Suspected Infection Suspected Infection: Pneumonia Prior Doses of Antibiotics Prior Doses of Antibiotics Received/Current Regimen: Currently on 1250mg iv q8h. Labs Labs: Sodium 141 mmol/L (136-145) 09/27/23 04:40 Potassium 3.8 mmol/L (3.5-5.1) 09/27/23 04:40 Chloride 108 mmol/L (98-107) H 09/27/23 04:40 Carbon Dioxide 25.0 mmol/L (21.0-32.0) 09/27/23 04:40 Anion Gap 8 (5-15) 09/27/23 04:40 BUN 10 mg/dL (7-18) 09/27/23 04:40 Creatinine 0.71 mg/dL (0.55-1.02) 09/27/23 04:40 Est GFR (MDRD) Af Amer 119 mL/min (>60) 09/27/23 04:40 Est GFR (MDRD) Non-Af 99 mL/min (>60) 09/27/23 04:40 BUN/Creatinine Ratio 14.0 RATIO (10-20) 09/27/23 04:40 Glucose 120 mg/dL (74-106) H 09/27/23 04:40 Vancomycin Trough 26.3 ug/mL (5.0-15.0) H 09/27/23 10:00 Microbiology Microbiology: Microbiology 09/27/23 10:15 Gastric Fluid/Contents Gastric Occult Blood - Final Occult Blood Positive 09/27/23 07:30 Bronchial Lavage - Right Middle Lobe Gram Stain - Final 09/25/23 07:55 Urine, Catheterized Urine Culture - Final Culture exhibits no growth. 09/25/23 08:25 Sputum, Expectorated/Coughed Gram Stain - Final 09/25/23 08:25 Sputum, Expectorated/Coughed Respiratory Culture - Final 09/25/23 08:00 Blood Culture (Wb) - Left Hand Blood Culture - Preliminary No growth in 48 hours. 09/25/23 07:20 Blood Culture (Wb) - Left Hand Blood Culture - Preliminary No growth in 48 hours. 09/27/23 04:00 Stool Stool Occult Blood (YVETTE) - Final 09/25/23 07:55 Urine Catheter - Catheter Legionella Antigen - Final 09/25/23 07:55 Urine Catheter - Catheter Streptococcus pneumoniae Antigen (M - Final 09/25/23 07:29 Interface Orders Rapid RSV (DFA) - Final 09/25/23 07:20 Nasal Secretion SARS-CoV-2 & FLU Antigen (Rapid) - Final Dosing Weight Weight used for dosin kg Estimated Creatinine Clearance Estimated Creatinine Clearance: >100ml/min Pharmacy Plan for Drug Dosing Pharmacy Plan for Drug Dosing: Trough today ~6 hrs post dose was elevated at 26.3. Will hold further dosing and get a random level in 12hrs. Resume dosing when level </=20. Pharmacy Service will continue to monitor and adjust dosing as required. Follow-Up Labs Follow-Up Labs: Trough: Other (random level 12.21.23 @2200)
[2023-09-27] MEDS: dexMEDEtomidine 400 MCG in 0.9% Normal Saline (100mL Bag) 96 ML 12.1999999999999993 MCG CONT INF ×2 (11:42→19:37)
[2023-09-27] MEDS: fentaNYL drip 100 ML 12.5 MCG CONT INF ×2 (13:59→21:59)
[2023-09-27] MEDS: Propofol 10MG/Ml 1,000 MG/100 ML Bottle 12.1999999999999993 MG CONT INF (15:45)
[2023-09-27] MEDS: Pantoprazole Sodium 40 MG in 0.9% Normal Saline (100mL MB+) 100 ML 330 MG IV (20:51)
[2023-09-27 22:47] LABS: Vancomycin, Random Level 6.1 ug/mL (0.0-15.0)
[2023-09-27] MEDS: Senna/Docusate Sodium 1 Tablet 2 TABLET PO (23:23)
[2023-09-27] MEDS: Montelukast 10 MG Tablet PO (23:23)
[2023-09-27] MEDS: Vancomycin IV 1,000 MG/200 ML BAG 200 MG IV (23:42)
[2023-09-28] VITALS (37 sets, daily range): BP systolic 100–118; BP diastolic 67–85; PULSE 59–80; RESP 11–21; TEMP 37.6–38; O2SAT 86–99; BMI 41.3
--- NOTE | 2023-09-28 00:33 | PCM.RX.CS ---
Consult Antibiotic Management Pharmacy has been consulted to manage selected antiobiotic: Vancomycin Type of Intervention Type of Consult: Follow-up Suspected Infection Suspected Infection: Sepsis and Pneumonia Labs Labs: Sodium 141 mmol/L (136-145) 09/27/23 04:40 Potassium 3.8 mmol/L (3.5-5.1) 09/27/23 04:40 Chloride 108 mmol/L (98-107) H 09/27/23 04:40 Carbon Dioxide 25.0 mmol/L (21.0-32.0) 09/27/23 04:40 Anion Gap 8 (5-15) 09/27/23 04:40 BUN 10 mg/dL (7-18) 09/27/23 04:40 Creatinine 0.71 mg/dL (0.55-1.02) 09/27/23 04:40 Est GFR (MDRD) Af Amer 119 mL/min (>60) 09/27/23 04:40 Est GFR (MDRD) Non-Af 99 mL/min (>60) 09/27/23 04:40 BUN/Creatinine Ratio 14.0 RATIO (10-20) 09/27/23 04:40 Glucose 120 mg/dL (74-106) H 09/27/23 04:40 Vancomycin Trough 26.3 ug/mL (5.0-15.0) H 09/27/23 10:00 Random Vancomycin 6.1 ug/mL (0.0-15.0) 09/27/23 21:55 Microbiology Microbiology: Microbiology 09/27/23 10:15 Gastric Fluid/Contents Gastric Occult Blood - Final Occult Blood Positive 09/27/23 07:30 Bronchial Lavage - Right Middle Lobe Gram Stain - Final 09/25/23 07:55 Urine, Catheterized Urine Culture - Final Culture exhibits no growth. 09/25/23 08:25 Sputum, Expectorated/Coughed Gram Stain - Final 09/25/23 08:25 Sputum, Expectorated/Coughed Respiratory Culture - Final 09/25/23 08:00 Blood Culture (Wb) - Left Hand Blood Culture - Preliminary No growth in 48 hours. 09/25/23 07:20 Blood Culture (Wb) - Left Hand Blood Culture - Preliminary No growth in 48 hours. 09/27/23 04:00 Stool Stool Occult Blood (YVETTE) - Final 09/25/23 07:55 Urine Catheter - Catheter Legionella Antigen - Final 09/25/23 07:55 Urine Catheter - Catheter Streptococcus pneumoniae Antigen (M - Final 09/25/23 07:29 Interface Orders Rapid RSV (DFA) - Final 09/25/23 07:20 Nasal Secretion SARS-CoV-2 & FLU Antigen (Rapid) - Final Dosing Weight Weight used for dosin.42 kg Estimated Creatinine Clearance Estimated Creatinine Clearance: 140 Goal Trough Goal Trough: 15-20 mcg/mL Pharmacy Plan for Drug Dosing Pharmacy Plan for Drug Dosing: Random vancomycin level, drawn roughly 17.5hrs since the last dose was 6.1. Will re-institute dosing at 1000mg q8h, and will draw a trough level prior to the fourth dose. Pharmacy Service will continue to monitor and adjust dosing as required. Follow-Up Labs Follow-Up Labs: Trough: Vancomycin Date/Time Labs Ordered Labs to be done on [date and time ordered]: 09/28/23 @3114
[2023-09-28] MEDS: Propofol 10MG/Ml 1,000 MG/100 ML Bottle 9.80000000000000071 MG CONT INF (01:36)
[2023-09-28] MEDS: Lactated Ringers 1,000 ML 125 ML IV (03:47)
[2023-09-28] MEDS: dexMEDEtomidine 400 MCG in 0.9% Normal Saline (100mL Bag) 96 ML 12.1999999999999993 MCG CONT INF ×2 (03:47→11:27)
[2023-09-28 04:03] LABS: Absolute Lymphocyte Count 0.74 X10^3/uL (0.83-4.51); Absolute Neutrophil Count 13.4 X10^3/uL (2.0-7.7); Basophil# 0.06 X10^3/uL; Basophil% 0.4 % (0-1); Hematocrit 33.5 % (37-47); Hemoglobin 10.8 g/dL (12.0-15.0); Lymphocyte # 0.74 X10^3/ul (0.83-4.51); Mean Corp Hgb Conc 32.2 g/dL (32-36); Mean Corpuscular Hgb 29.6 pg (27.0-32.0); Mean Corpuscular Volume 91.8 fL (81-99); Monocyte# 0.64 X10^3/uL; Monocyte% 4.3 % (0-10); NRBC Flagged by Analyzer 0 % (0-5); Neutrophil # 13.35 X10^3/uL (2.7-7.7); Neutrophil % 89.7 % (47-70); Platelet Count 206 K/mm3 (150-450); RBC Distribution Width CV 13.4 % (11.6-14.6); RBC Distribution Width SD 44.9 fl (35.1-43.9); Red Blood Count 3.65 M/mm3 (4.2-5.4); White Blood Count 14.9 K/mm3 (4.4-11.0)
[2023-09-28 04:20] LABS: Anion Gap 5 (5-15); BUN 12 mg/dL (7-18); BUN/Creat Ratio 18.5 RATIO (10-20); Calcium,Total 7.7 mg/dL (8.5-10.1); Chloride 108 mmol/L (98-107); Creatinine, Serum 0.65 mg/dL (0.55-1.02); EST Glomerular Filtration Rate 110 mL/min (>60); Est Glom Filt Rate - Afr Amer 133 mL/min (>60); Estimated Creatinine Clearance 155.27 ml/min; Glucose 183 mg/dL (74-106); Sodium Level 139 mmol/L (136-145)
--- NOTE | 2023-09-28 04:40 | RAD_ITS ---
EXAM: XR CHEST, 1 VIEW CLINICAL INDICATION: PNA TECHNIQUE: Frontal view of the chest. COMPARISON: Single view chest 09/27/2023 FINDINGS: LUNGS AND PLEURAL SPACES: Bilateral extensive pulmonary opacities with moderate pleural effusions. No pneumothorax. HEART: Unremarkable. Cardiac silhouette not enlarged. MEDIASTINUM: Central airways and mediastinal contour are unremarkable. BONES/JOINTS: Unremarkable. No acute fracture. SOFT TISSUES: Unremarkable. TUBES, LINES AND DEVICES: Stable endotracheal and enteric tubes. RAD/Chest 1 View (Portable) IMPRESSION: Bilateral extensive pulmonary opacities with moderate pleural effusions. Findings may indicate pneumonia. Electronically Signed: Je Pete MD at 5:54 EST ,
[2023-09-28] MEDS: fentaNYL drip 100 ML 12.5 MCG CONT INF ×2 (05:59→14:15)
[2023-09-28] MEDS: Polyethylene Glycol 3350 17 GM PACKET PO (06:40)
[2023-09-28] MEDS: Albuterol 2.5 MG/3 ML VIAL.NEB. INHALATION ×4 (07:00→22:57)
--- NOTE | 2023-09-28 07:02 | PN.CC_ITS ---
Assessment & Plan Assessment/Plan (1) Sepsis: QUALIFIERS: Sepsis type: sepsis due to unspecified organism Sepsis acute organ dysfunction status: with acute organ dysfunction Severe sepsis acute organ dysfunction type: encephalopathy Severe sepsis shock status: without septic shock Qualified Code(s): A41.9 - Sepsis, unspecified organism; R65.20 - Severe sepsis without septic shock; G93.41 - Metabolic encephalopathy (2) Pneumonia: QUALIFIERS: Pneumonia type: due to unspecified organism Laterality: right Lung location: unspecified part of lung Qualified Code(s): J18.9 - Pneumonia, unspecified organism (3) Acute hypoxic respiratory failure: (4) Autism: PLAN: Plan RECOMMENDATIONS: 1. Okay to remain in the supine position 2. Continue empiric antibiotics pending cultures 3. Continue PPI twice daily and monitor H&H. SCDs for DVT 4. Wean oxygen to keep saturations between 90 to 94% 5. Decrease propofol if possible. Continue fentanyl and Precedex 6. Aggressive bowel regimen 7. Okay to initiate tube feeds IMPRESSIONS: 1. Septic shock secondary to bilateral pneumonia Patient with significant fever, hypoxic respiratory failure and decreased mental status. Patient did receive sepsis fluids and responded well from a blood pressure standpoint initially. However, patient no longer requiring pre ssors. This may be secondary to propofol or acidosis related to respiratory issues. CT scan of the chest shows extensive infiltrates. Patient is being treated with broad-spectrum antibiotics considering previous MDRO. 2. Acute hypoxic respiratory failure secondary to bilateral pneumonia Patient with extensive consolidation on the right and some infiltrates on the left. Bronchoscopy following intubation did not show any significant central mucous plugging. It is unclear if this has been placed peripheral secondary to high PEEP requirements. Patient responded well to prone positioning and PEEP is down to 8. Patient has been on inhaled steroids for several years secondary to a diagnosis of asthma, but was unable to have a formal PFT. Given severity of illness, will continue patient empirically on Solu-Medrol. Chest x-ray is grossly unchanged compared to yesterday 3. Autism/morbid obesity/allergies/GERD/history of MDRO Complicates care, management, recovery and prognosis. Patient's mother was very clear that she is a full code and would want everything done including intubation and CPR. Patient carries a diagnosis of GERD, but has some coffee- ground type gastric secretions. It is unclear if this is secondary to aspiration of bloody respiratory secretions or possible upper GI source. Patient placed on PPI twice daily. Patient currently receiving vancomycin pending cultures. Will need to avoid benzodiazepines as patient is at high risk for the development of delirium. Will consider GI workup if patient requires transfusion TIME: 36 minutes critical care time, excluding bronchoscopy, was spent addressing patient's septic shock, hypoxic respiratory failure, pneumonia, discussing goals of therapy with family, review of all data and collaboration with care team Subjective Subjective Patient did okay overnight. Patient continues to have dark output out of OG. Fever curve has improved. Patient's oxygenation status has improved significantly as she is currently on 60% FiO2 and a PEEP of 8. Patient tolerating supine position well. Patient is no longer on pressors. Did discuss with patient's father at the bedside. Nursing does report the patient becomes agitated and bites the ET tube during suctioning Objective Data Objective Data Vital Signs: Vital Signs Temp Pulse Resp BP Pulse Ox O2 Del Method O2 Flow Rate 37.8 C H 77 14 107/78 93 Mechanical Ventilator 60 09/28/23 06:00 09/28/23 07:00 09/28/23 07:00 09/28/23 06:00 09/28/23 06:00 09/28/23 06:00 09/26/23 15:40 FiO2 60 09/28/23 06:00 Oxygen Flow Rate (L/min) 60 Oxygen Delivery Method Mechanical Ventilator Weight: 83.779 kg Body Mass Index (BMI) 41.3 Intake & Output: Intake and Output for Last 24 Hours 09/26/23 09/27/23 09/28/23 23:59 23:59 23:59 Intake Total 3021.67 / 3023.39 4308.34 / 4342.84 1337.35 / 1337.35 Output Total 300 / 300 1650 / 2000 800 / 800 Balance 2721.67 / 2723.39 2658.34 / 2342.84 537.35 / 537.35 Lab / Micro Data Attestation: I reviewed the patient's lab results. 09/28/23 03:50 09/28/23 03:50 Labs: Laboratory Results - last 24 hr 09/27/23 10:00: Vancomycin Trough 26.3 H 09/27/23 21:55: Random Vancomycin 6.1 09/28/23 03:50: WBC 14.9 H, RBC 3.65 L, Hgb 10.8 L, Hct 33.5 L, MCV 91.8, MCH 29.6, MCHC 32.2, RDW Std Deviation 44.9 H, RDW Coeff of [place] 13.4, Plt Count 206, MPV 9.0, Immature Gran % (Auto) 0.600, Neut % (Auto) 89.7 H, Lymph % (Auto) 5.0 L, [place] % (Auto) 4.3, Eos % (Auto) 0.0, Baso % (Auto) 0.4, Absolute Neuts (auto) 13.4 H, Absolute Lymphs (auto) 0.74 L, Nucleated RBC % 0, Sodium 139, Potassium 4.0, Chloride 108 H, Carbon Dioxide 26.0, Anion Gap 5, BUN 12, Creatinine 0.65, Estim Creat Clear Calc 155.27, Est GFR (MDRD) Af Amer 133, Est GFR (MDRD) Non-Af 110, BUN/Creatinine Ratio 18.5, Glucose 183 H, Calcium 7.7 L Micro: Microbiology 09/27/23 10:15 Gastric Fluid/Contents Gastric Occult Blood - Final Occult Blood Positive 09/27/23 07:30 Bronchial Lavage - Right Middle Lobe Gram Stain - Final 09/25/23 07:55 Urine, Catheterized Urine Culture - Final Culture exhibits no growth. 09/25/23 08:25 Sputum, Expectorated/Coughed Gram Stain - Final 09/25/23 08:25 Sputum, Expectorated/Coughed Respiratory Culture - Final 09/25/23 08:00 Blood Culture (Wb) - Left Hand Blood Culture - Preliminary No growth in 48 hours. 09/25/23 07:20 Blood Culture (Wb) - Left Hand Blood Culture - Preliminary No growth in 48 hours. 09/27/23 04:00 Stool Stool Occult Blood (YVETTE) - Final 09/25/23 07:55 Urine Catheter - Catheter Legionella Antigen - Final 09/25/23 07:55 Urine Catheter - Catheter Streptococcus pneumoniae Antigen (M - Final 09/25/23 07:29 Interface Orders Rapid RSV (DFA) - Final 09/25/23 07:20 Nasal Secretion SARS-CoV-2 & FLU Antigen (Rapid) - Final Radiography Diagnostic Testing: Radiology Impression Chest X-Ray 09/27/23 05:00 IMPRESSION: Worsening bilateral pneumonia. Electronically Signed: Stephanie Gunter MD at 8:00 EST , Chest X-Ray 09/28/23 04:40 IMPRESSION: Bilateral extensive pulmonary opacities with moderate pleural effusions. Findings may indicate pneumonia. Electronically Signed: Je Pete MD at 5:54 EST , Physical Exam Const Constitutional Narrative: RASS -2. Good ventilator synchrony. Hirsutism noted General Appearance: patient mechanically ventilated HEENT normocephalic and head/scalp atraumatic HEENT Narrative: Dark coffee ground material noted out of OG Mouth: endotracheal tube in place and OG tube in place Eyes PERRL, EOMs intact bilaterally and conjunctivae normal Eyes Narrative: No scleral icterus noted Neck full ROM Resp Resp Narrative: Fair vent synchrony noted Auscultation: rhonchi, wheezes and diminished lung sounds right (Little to no air movement on the right) throughout Cardio regular rate, regular rhythm, S1 normal heart sound, S2 normal heart sound, no murmurs, no rub and no gallops GI normal to inspection, nondistended, normoactive bowel sounds Extremity no clubbing, cyanosis or edema Skin no rashes or lesions noted Neuro Neuro Narrative: Moves all extremities. Not following commands. Sensation appears intact. Psych Mood & Affect: flat affect Charges/Coding Procedures Hospitalists Procedures: 52136 Critical Care 1st Hr
[2023-09-28] MEDS: Vancomycin IV 1,000 MG/200 ML BAG 200 MG IV ×2 (07:03→16:05)
--- NOTE | 2023-09-28 09:14 | PCM.PN.HOSP ---
Reason for Visit Reason for Visit: Diagnoses Sepsis, unspecified organism (09/25/23) Autistic disorder (09/25/23) Metabolic encephalopathy (09/25/23) Pneumonia, unspecified organism (09/25/23) Acute respiratory failure with hypoxia (09/25/23) Severe sepsis without septic shock (09/25/23) Objective Data Objective Data Vital Signs: Vital Signs Temp Pulse Resp BP Pulse Ox O2 Del Method O2 Flow Rate 100.0 F H 80 17 115/78 90 Mechanical Ventilator 60 09/28/23 08:00 09/28/23 08:00 09/28/23 08:00 09/28/23 08:00 09/28/23 08:00 09/28/23 08:23 09/26/23 15:40 FiO2 80 09/28/23 08:23 Oxygen Flow Rate (L/min) 60 Oxygen Delivery Method Mechanical Ventilator Weight: 184 lb 11.2 oz Body Mass Index (BMI) 41.3 Intake & Output: Intake and Output for Last 24 Hours 09/26/23 09/27/23 09/28/23 23:59 23:59 23:59 Intake Total 3021.67 / 3023.39 4308.34 / 4342.84 1646.55 / 1646.55 Output Total 300 / 300 1650 / 2000 800 / 800 Balance 2721.67 / 2723.39 2658.34 / 2342.84 846.55 / 846.55 Lab / Micro Data 09/28/23 03:50 09/28/23 03:50 Labs: Laboratory Results - last 24 hr 09/27/23 10:00: Vancomycin Trough 26.3 H 09/27/23 21:55: Random Vancomycin 6.1 09/28/23 03:50: WBC 14.9 H, RBC 3.65 L, Hgb 10.8 L, Hct 33.5 L, MCV 91.8, MCH 29.6, MCHC 32.2, RDW Std Deviation 44.9 H, RDW Coeff of [place] 13.4, Plt Count 206, MPV 9.0, Immature Gran % (Auto) 0.600, Neut % (Auto) 89.7 H, Lymph % (Auto) 5.0 L, [place] % (Auto) 4.3, Eos % (Auto) 0.0, Baso % (Auto) 0.4, Absolute Neuts (auto) 13.4 H, Absolute Lymphs (auto) 0.74 L, Nucleated RBC % 0, Sodium 139, Potassium 4.0, Chloride 108 H, Carbon Dioxide 26.0, Anion Gap 5, BUN 12, Creatinine 0.65, Estim Creat Clear Calc 155.27, Est GFR (MDRD) Af Amer 133, Est GFR (MDRD) Non-Af 110, BUN/Creatinine Ratio 18.5, Glucose 183 H, Calcium 7.7 L Micro: Microbiology 09/27/23 10:15 Gastric Fluid/Contents Gastric Occult Blood - Final Occult Blood Positive 09/27/23 07:30 Bronchial Lavage - Right Middle Lobe Gram Stain - Final 09/25/23 07:55 Urine, Catheterized Urine Culture - Final Culture exhibits no growth. 09/25/23 08:25 Sputum, Expectorated/Coughed Gram Stain - Final 09/25/23 08:25 Sputum, Expectorated/Coughed Respiratory Culture - Final 09/25/23 08:00 Blood Culture (Wb) - Left Hand Blood Culture - Preliminary No growth in 48 hours. 09/25/23 07:20 Blood Culture (Wb) - Left Hand Blood Culture - Preliminary No growth in 48 hours. 09/27/23 04:00 Stool Stool Occult Blood (YVETTE) - Final 09/25/23 07:55 Urine Catheter - Catheter Legionella Antigen - Final 09/25/23 07:55 Urine Catheter - Catheter Streptococcus pneumoniae Antigen (M - Final 09/25/23 07:29 Interface Orders Rapid RSV (DFA) - Final 09/25/23 07:20 Nasal Secretion SARS-CoV-2 & FLU Antigen (Rapid) - Final Radiography Diagnostic Testing: Radiology Impression Chest X-Ray 09/28/23 04:40 IMPRESSION: Bilateral extensive pulmonary opacities with moderate pleural effusions. Findings may indicate pneumonia. Electronically Signed: Je Pete MD at 5:54 EST , Physical Exam Narrative Seen and examined. Overnight events noted. Discussed with the nursing staff. Patient vent setting improved. Patient was on prone position until 11 PM yesterday. In the morning was 60% FiO2, PEEP 8. She is off Levophed drip. On Precedex drip. Sinus rhythm property assessment monitor. Talked to the patient's father in the room. Physical exam: General: Sedated, intubated HEENT: Atraumatic, Normocephalic. Oral: ET and OG tube. OG tube Neck: Supple, No JVD, Negative Carotid Bruits Lungs: Air entry diminished in bilateral lung bases. Bilateral coarse crepitations. Cardiovascular: Regular rate, Regular Rhythm, muffled heart sounds. Abdomen: soft, obese, bowel sounds sluggish. : Rivera catheter dark urine. No renal angle tenderness. No suprapubic tenderness. Extremities: Mild 1+ edema. Skin: No rashes, No breakdown Musculoskeletal: No Tenderness to Palpation of Joints or Extremities. ROM and muscle strength not evaluated. Neurological: Sedated. Detailed neuroexam could not be done as patient is very sick. Psych/Mental Status: Intubated. Assessment & Plan Assessment/Plan (1) Acute hypoxic respiratory failure: PLAN: Plan 1. Acute hypoxic respiratory failure secondary to atelectasis and bilateral community-acquired pneumonia-patient is intubated on high vent settings, 80% FiO2, 16 PEEP. Currently patient on prone position. Patient was seen by bindery machine setter and instruction was to keep on prone position until 11 PM if patient can tolerate. Patient on propofol fentanyl and Precedex drip. 09/28: Reservations Agent recommended to keep in supine position. IV antibiotic changed to Zosyn and continue vancomycin. As father had suspicion for aspiration. I discussed with the father. C-reactive management as per bindery machine setter. tube feed started. Discontinue IV fluid. 2. Acute upper GI bleed: OG aspirate was coffee-ground emesis yesterday which has decreased now. Patient started on IV PPI on 09/27. Guaiac for gastric aspirate positive. When patient is more stable will need EGD. Currently not hemodynamically stable for any procedure. #2 septic shock secondary to bilateral pneumonia- the patient presented with sepsis with clinical indicators of fever, decreased responsiveness/mental status of due to bilateral pneumonia with acute sepsis-related organ dysfunction as evidenced by fluid resistant hypotension which which required vasopressors/levo. Continue broad-spectrum IV antibiotic Zosyn and vancomycin. ID consult requested #3 autism-discussed with the father. After talking to the father, she she has delayed motor social and cognitive milestones. She show not able to walk evaluate 4 to 5 years of age. Complicates care, medical course, recovery, and prognosis DVT prophylaxis pharmacological prophylaxis contraindicated as patient has GI bleed. Bilateral SCDs Charges/Coding Visit Charges Inpatient E&M: 58787 Subs Hosp L3
[2023-09-28] MEDS: Pantoprazole Sodium 40 MG in 0.9% Normal Saline (100mL MB+) 100 ML 330 MG IV ×2 (09:18→21:35)
[2023-09-28] MEDS: MINERAL OIL/PETROLATUM,WHITE 3.5 GM OINT...G. OPHTHALMIC (09:20)
[2023-09-28] MEDS: Senna/Docusate Sodium 1 Tablet 2 TABLET PO ×2 (09:20→21:36)
[2023-09-28] MEDS: 0.9% Saline Lock 10 ML Syringe IV ×4 (09:48→23:34)
[2023-09-28] MEDS: Succinylcholine Chloride 200 MG/10 ML SYRINGE 100 MG IV (09:49)
[2023-09-28] MEDS: Chlorhexidine 15 ML PO ×2 (09:55→22:00)
[2023-09-28] MEDS: Piperacil/Tazobactam 3.375 GM in 0.9% Normal Saline (50mL MB+) 50 ML IV ×3 (10:02→21:35)
[2023-09-28] MEDS: Vital AF 1.2 Cal Liquid 1,000 ML 10 ML GT (12:17)
[2023-09-28] MEDS: Furosemide 20 MG/2 ML VIAL IV (13:05)
--- NOTE | 2023-09-28 15:00 | CON.PCM.ID_ITS ---
Assessment & Plan Assessment/Plan (1) Sepsis: QUALIFIERS: Sepsis type: sepsis due to unspecified organism Sepsis acute organ dysfunction status: with acute organ dysfunction Severe sepsis acute organ dysfunction type: encephalopathy Severe sepsis shock status: without septic shock Qualified Code(s): A41.9 - Sepsis, unspecified organism; R65.20 - Severe sepsis without septic shock; G93.41 - Metabolic encephalopathy (2) Pneumonia: QUALIFIERS: Pneumonia type: due to unspecified organism Laterality: right Lung location: unspecified part of lung Qualified Code(s): J18.9 - Pneumonia, unspecified organism PLAN: Fever improved. BP improved, remains on vent. Cxs neg so far. Will check full resp pcr panel. Cont empiric vanc/zosyn. Will follow, thank you, d/w Dr. Chauhan (3) Acute hypoxic respiratory failure: HPI Consult Data Date of Consult: 09/28/23 HPI Narrative Reason for Consultation: pneumonia HPI Narrative: SALLY GLASS, is a 37 F with h/o autism, presented 09/25 with two days progressive cough, dyspnea, fever. No known inciting events, no sick contacts. Admitted to icu, fever to 103.9. Started on vanc, ceftriaxone, and levaquin. Bronch done 09/27. Now on vanc/zosyn, pressors weaned off, remains on vent. History obtained from mother at bedside, ROS unobtainable due to intubation. [facility] Medical History Asthma Autism Hormonal disorder Sleep apnea Home Medications Bifidobacterium infantis 4 mg capsule (Align) 4 mg PO DAILY G[employer] HEALTH 09/25/23 [History Last Taken 09/24/23] albuterol sulfate 2.5 mg/3 mL (0.083 %) solution for nebulization 2.5 mg continuous nebulization Q6H PRN shortness of breath 09/25/23 [History Last Taken 09/24/23] albuterol sulfate 90 mcg/actuation aerosol inhaler 1 inh inhalation Q6H PRN shortness of breath 09/25/23 [History Last Taken 09/24/23] artificial tears with lanolin eye ointment 1 applic EACH EYE DAILY dry eye relief 09/25/23 [History Last Taken 09/24/23] cetirizine 10 mg tablet 10 mg PO DAILY allergies 09/25/23 [History Last Taken 09/24/23] famotidine 20 mg tablet 20 mg PO QHS acid reflux 09/25/23 [History Last Taken 09/24/23] fluticasone propionate 45 mcg-salmeterol 21 mcg/actuation HFA inhaler (Advair HFA) 2 inh inhalation Q12H shortness of breath 09/25/23 [History Last Taken 09/24/23] fluticasone propionate 50 mcg/actuation nasal spray,suspension 2 spray intranasal DAILY nasal congestion 09/25/23 [History Last Taken 09/24/23] meclizine 25 mg chewable tablet 25 mg PO DAILY PRN vertigo 09/25/23 [History Last Taken Unknown] metformin 1,000 mg tablet 1,000 mg PO BID hormones 09/25/23 [History Last Taken 09/24/23] montelukast 10 mg tablet 10 mg PO QPM allergies 09/25/23 [History Last Taken 09/24/23] norethindrone (contraceptive) 0.35 mg tablet (Ana Rosa) 0.35 mg PO DAILY hormones 09/25/23 [History Last Taken 09/24/23] Allergy/AdvReac Type Severity Reaction Status Date / Time Sulfa (Sulfonamide Allergy Mild Rash Verified 09/25/23 07:14 Antibiotics) Social History Smoking Status: Never smoker Physical Exam Const no apparent distress HEENT normocephalic and head/scalp atraumatic Eyes PERRL Neck supple and No nodes Resp Effort and Inspection: mechanically ventilated Auscultation: diminished lung sounds Cardio Rate: tachycardic GI soft to palpation, non-tender and non-distended Extremity General Extremity: edema Skin no rashes or lesions noted Neuro Neuro Narrative: intubated, sedated Lab / Micro Data Attestation: I reviewed the patient's lab results. 09/28/23 03:50 09/28/23 03:50 Labs: Laboratory Results - last 24 hr 09/27/23 21:55: Random Vancomycin 6.1 09/28/23 03:50: WBC 14.9 H, RBC 3.65 L, Hgb 10.8 L, Hct 33.5 L, MCV 91.8, MCH 29.6, MCHC 32.2, RDW Std Deviation 44.9 H, RDW Coeff of [place] 13.4, Plt Count 206, MPV 9.0, Immature Gran % (Auto) 0.600, Neut % (Auto) 89.7 H, Lymph % (Auto) 5.0 L, [place] % (Auto) 4.3, Eos % (Auto) 0.0, Baso % (Auto) 0.4, Absolute Neuts (auto) 13.4 H, Absolute Lymphs (auto) 0.74 L, Nucleated RBC % 0, Sodium 139, Potassium 4.0, Chloride 108 H, Carbon Dioxide 26.0, Anion Gap 5, BUN 12, Creatinine 0.65, Estim Creat Clear Calc 155.27, Est GFR (MDRD) Af Amer 133, Est GFR (MDRD) Non-Af 110, BUN/Creatinine Ratio 18.5, Glucose 183 H, Calcium 7.7 L Micro: Microbiology 09/27/23 07:30 Bronchial Lavage - Right Middle Lobe Gram Stain - Final 09/27/23 07:30 Bronchial Lavage - Right Middle Lobe Respiratory Culture - Preliminary Culture exhibits no growth. 09/27/23 10:15 Gastric Fluid/Contents Gastric Occult Blood - Final Occult Blood Positive Imagaing Radiology Impression Chest X-Ray 09/28/23 04:40 IMPRESSION: Bilateral extensive pulmonary opacities with moderate pleural effusions. Findings may indicate pneumonia. Electronically Signed: Je Pete MD at 5:54 EST ,
[2023-09-28] MEDS: dexMEDEtomidine 400 MCG in 0.9% Normal Saline (100mL Bag) 96 ML 16.3000000000000007 MCG CONT INF (18:29)
[2023-09-28] MEDS: Montelukast 10 MG Tablet PO (21:36)
[2023-09-28] MEDS: Vancomycin Trough/Random Due 1 LAB MC (23:30)
[2023-09-28] MEDS: dexMEDEtomidine 400 MCG in 0.9% Normal Saline (100mL Bag) 96 ML 20.3999999999999986 MCG CONT INF (23:34)
[2023-09-29] VITALS (37 sets, daily range): BP systolic 109–129; BP diastolic 66–86; PULSE 16–82; RESP 14–30; TEMP 37.7–38.7; O2SAT 86–97; BMI 42.2; BMI 93.0
[2023-09-29 00:02] LABS: Vancomycin, Trough Level 14.8 ug/mL (5.0-15.0)
[2023-09-29] MEDS: fentaNYL drip 100 ML 12.5 MCG CONT INF ×4 (00:05→21:39)
[2023-09-29] MEDS: Vancomycin IV 1,000 MG/200 ML BAG 200 MG IV ×4 (00:06→23:32)
--- NOTE | 2023-09-29 00:44 | PHA.PHARE_ITS ---
Consult Antibiotic Management Pharmacy has been consulted to manage selected antiobiotic: Vancomycin Type of Intervention Type of Consult: Follow-up Suspected Infection Suspected Infection: Sepsis and Pneumonia Labs Labs: Sodium 139 mmol/L (136-145) 09/28/23 03:50 Potassium 4.0 mmol/L (3.5-5.1) 09/28/23 03:50 Chloride 108 mmol/L (98-107) H 09/28/23 03:50 Carbon Dioxide 26.0 mmol/L (21.0-32.0) 09/28/23 03:50 Anion Gap 5 (5-15) 09/28/23 03:50 BUN 12 mg/dL (7-18) 09/28/23 03:50 Creatinine 0.65 mg/dL (0.55-1.02) 09/28/23 03:50 Est GFR (MDRD) Af Amer 133 mL/min (>60) 09/28/23 03:50 Est GFR (MDRD) Non-Af 110 mL/min (>60) 09/28/23 03:50 BUN/Creatinine Ratio 18.5 RATIO (10-20) 09/28/23 03:50 Glucose 183 mg/dL (74-106) H 09/28/23 03:50 Vancomycin Trough 14.8 ug/mL (5.0-15.0) 09/28/23 23:30 Random Vancomycin 6.1 ug/mL (0.0-15.0) 09/27/23 21:55 Microbiology Microbiology: Microbiology 09/28/23 15:20 Mucosa - Nasopharyngeal Respiratory Panel (PCR) - Final Rhinovirus 09/27/23 07:30 Bronchial Lavage - Right Middle Lobe Gram Stain - Final 09/27/23 07:30 Bronchial Lavage - Right Middle Lobe Respiratory Culture - Preliminary Culture exhibits no growth. 09/27/23 10:15 Gastric Fluid/Contents Gastric Occult Blood - Final Occult Blood Positive 09/25/23 07:55 Urine, Catheterized Urine Culture - Final Culture exhibits no growth. 09/25/23 08:25 Sputum, Expectorated/Coughed Gram Stain - Final 09/25/23 08:25 Sputum, Expectorated/Coughed Respiratory Culture - Final 09/25/23 08:00 Blood Culture (Wb) - Left Hand Blood Culture - Preliminary No growth in 48 hours. 09/25/23 07:20 Blood Culture (Wb) - Left Hand Blood Culture - Preliminary No growth in 48 hours. 09/27/23 04:00 Stool Stool Occult Blood (YVETTE) - Final 09/25/23 07:55 Urine Catheter - Catheter Legionella Antigen - Final 09/25/23 07:55 Urine Catheter - Catheter Streptococcus pneumoniae Antigen (M - Final 09/25/23 07:29 Interface Orders Rapid RSV (DFA) - Final 09/25/23 07:20 Nasal Secretion SARS-CoV-2 & FLU Antigen (Rapid) - Final Dosing Weight Weight used for dosin.8 kg Estimated Creatinine Clearance Estimated Creatinine Clearance: 155 Goal Trough Goal Trough: 15-20 mcg/mL Pharmacy Plan for Drug Dosing Pharmacy Plan for Drug Dosing: Vancomycin trough level of 14.8, drawn 7.5hrs post-dose, was just under the targ et range of 15-20. Will continue dosing at current 1000mg q8h and draw another trough level in two days. Pharmacy Service will continue to monitor and adjust dosing as required. Follow-Up Labs Follow-Up Labs: Trough: Vancomycin Date/Time Labs Ordered Labs to be done on [date and time ordered]: 09/30/23 @2309
[2023-09-29] MEDS: Albuterol 2.5 MG/3 ML VIAL.NEB. INHALATION ×4 (02:31→18:57)
[2023-09-29 03:46] LABS: Absolute Lymphocyte Count 0.63 X10^3/uL (0.83-4.51); Absolute Neutrophil Count 12.1 X10^3/uL (2.0-7.7); Basophil# 0.04 X10^3/uL; Basophil% 0.3 % (0-1); Eosinophil# 0.04 X10^3/uL; Eosinophils% 0.3 % (0-5); Hematocrit 33.2 % (37-47); Hemoglobin 10.8 g/dL (12.0-15.0); Lymphocyte # 0.63 X10^3/ul (0.83-4.51); Lymphocyte % 4.6 % (19-41); Mean Corp Hgb Conc 32.5 g/dL (32-36); Mean Corpuscular Hgb 29.6 pg (27.0-32.0); Mean Platelet Vol. 9.5 fl (6.2-12.0); Monocyte# 0.55 X10^3/uL; Monocyte% 4.1 % (0-10); NRBC Flagged by Analyzer 0.2 % (0-5); Neutrophil # 12.13 X10^3/uL (2.7-7.7); Neutrophil % 89.3 % (47-70); Platelet Count 234 K/mm3 (150-450); RBC Distribution Width CV 13.4 % (11.6-14.6); RBC Distribution Width SD 45.1 fl (35.1-43.9); Red Blood Count 3.65 M/mm3 (4.2-5.4); White Blood Count 13.6 K/mm3 (4.4-11.0)
[2023-09-29 03:59] LABS: Anion Gap 5 (5-15); BUN 18 mg/dL (7-18); BUN/Creat Ratio 23.4 RATIO (10-20); Calcium,Total 7.8 mg/dL (8.5-10.1); Chloride 107 mmol/L (98-107); Creatinine, Serum 0.77 mg/dL (0.55-1.02); EST Glomerular Filtration Rate 90 mL/min (>60); Est Glom Filt Rate - Afr Amer 109 mL/min (>60); Estimated Creatinine Clearance 134.87 ml/min; Glucose 288 mg/dL (74-106); Potassium 3.6 mmol/L (3.5-5.1); Sodium Level 139 mmol/L (136-145)
[2023-09-29] MEDS: dexMEDEtomidine 400 MCG in 0.9% Normal Saline (100mL Bag) 96 ML 22.3999999999999986 MCG CONT INF (04:14)
[2023-09-29] MEDS: 0.9% Saline Lock 10 ML Syringe IV ×2 (04:14→06:27)
[2023-09-29] MEDS: Acetaminophen 650 MG/20 ML UDC GT ×3 (04:14→17:00)
[2023-09-29] MEDS: CHLORHEXIDINE GLUC 2% CLOTH 1 EACH TOWELETTE TOPICAL ×2 (04:15→08:01)
[2023-09-29] MEDS: Piperacil/Tazobactam 3.375 GM in 0.9% Normal Saline (50mL MB+) 50 ML IV ×3 (06:27→20:45)
[2023-09-29] MEDS: Furosemide 20 MG/2 ML VIAL IV ×3 (06:38→20:50)
--- NOTE | 2023-09-29 06:53 | PCM.PN.INT ---
Assessment & Plan Assessment/Plan (1) Sepsis: QUALIFIERS: Sepsis type: sepsis due to unspecified organism Sepsis acute organ dysfunction status: with acute organ dysfunction Severe sepsis acute organ dysfunction type: encephalopathy Severe sepsis shock status: without septic shock Qualified Code(s): A41.9 - Sepsis, unspecified organism; R65.20 - Severe sepsis without septic shock; G93.41 - Metabolic encephalopathy (2) Pneumonia: QUALIFIERS: Pneumonia type: due to unspecified organism Laterality: right Lung location: unspecified part of lung Qualified Code(s): J18.9 - Pneumonia, unspecified organism (3) Acute hypoxic respiratory failure: (4) Autism: PLAN: Plan RECOMMENDATIONS: 1. Okay to remain in the supine position. Add mucolytic 2. Antibiotics per infectious disease 3. Continue PPI twice daily and monitor H&H. SCDs for DVT 4. Wean oxygen to keep saturations between 90 to 94% 5. Continue fentanyl and Precedex. Spontaneous breathing and awakening trials per protocol 6. Aggressive bowel regimen 7. Schedule diuretic therapy IMPRESSIONS: 1. Septic shock secondary to bilateral pneumonia Patient with significant fever, hypoxic respiratory failure and decreased mental status. Patient did receive sepsis fluids and responded well from a blood pressure standpoint initially. However, patient no longer requiring pressors. CT scan of the chest shows extensive infiltrates. Patient is being treated with broad-spectrum antibiotics considering previous MDRO. Infectious disease has been consulted. Patient did test positive for rhinovirus. 2. Acute hypoxic respiratory failure secondary to bilateral pneumonia Patient with extensive consolidation on the right and some infiltrates on the left. Bronchoscopy following intubation did not show any significant central mucous plugging. It is unclear if this has been placed peripheral secondary to high PEEP requirements. Patient responded well to prone positioning and PEEP is down to 8. Patient has been on inhaled steroids for several years secondary to a diagnosis of asthma, but was unable to have a formal PFT. Given severity of illness, will continue patient empirically on Solu-Medrol. Chest x-ray is grossly unchanged, but oxygen robbi have improved steadily. Patient could have spontaneous breathing and awakening trials as soon as tomorrow. 3. Autism/morbid obesity/allergies/GERD/history of MDRO Complicates care, management, recovery and prognosis. Patient's mother was very clear that she is a full code and would want everything done including intubation and CPR. Patient carries a diagnosis of GERD, but has some coffee-ground type gastric secretions. It is unclear if this is secondary to aspiration of bloody respiratory secretions or possible upper GI source. Patient placed on PPI twice daily. Patient currently receiving vancomycin pending cultures. Will need to avoid benzodiazepines as patient is at high risk for the development of delirium. Will consider GI workup if patient requires transfusion. Await bowel movement. TIME: 34 minutes critical care time, excluding bronchoscopy, was spent addressing patient's septic shock, hypoxic respiratory failure, pneumonia, discussing goals of therapy with family, review of all data and collaboration with care team Subjective Subjective Patient did okay overnight. Patient continues to have intermittent periods of activity, but responded well to the placement of a second bite block yesterday. Patient has been found to have rhinovirus and was placed in isolation. Discussed with the patient's father at the bedside. Fever curve does appear to be improving. Patient tolerating tube feeds. No bowel movement noted overnight. Objective Data Objective Data Vital Signs: Vital Signs Temp Pulse Resp BP Pulse Ox O2 Del Method O2 Flow Rate 38.4 C H 66 14 119/86 H 94 Mechanical Ventilator 60 09/29/23 06:00 09/29/23 06:45 09/29/23 06:45 09/29/23 06:00 09/29/23 06:45 09/29/23 06:00 09/26/23 15:40 FiO2 40 09/29/23 06:45 Oxygen Flow Rate (L/min) 60 Oxygen Delivery Method Mechanical Ventilator Weight: 83.779 kg Body Mass Index (BMI) 41.3 Intake & Output: Intake and Output for Last 24 Hours 09/27/23 09/28/23 09/29/23 23:59 23:59 23:59 Intake Total 4308.34 / 4342.84 3739.07 / 3851.03 912.20 / 912.20 Output Total 1650 / 1999 2050 / 2049 Balance 2658.34 / 2342.84 1689.07 / 1801.03 912.20 / 912.20 Lab / Micro Data Attestation: I reviewed the patient's lab results. 09/29/23 03:40 09/29/23 03:40 Labs: Laboratory Results - last 24 hr 09/28/23 23:30: Vancomycin Trough 14.8 09/29/23 03:40: WBC 13.6 H, RBC 3.65 L, Hgb 10.8 L, Hct 33.2 L, MCV 91.0, MCH 29.6, MCHC 32.5, RDW Std Deviation 45.1 H, RDW Coeff of [place] 13.4, Plt Count 234, MPV 9.5, Immature Gran % (Auto) 1.400 H, Neut % (Auto) 89.3 H, Lymph % (Auto) 4.6 L, [place] % (Auto) 4.1, Eos % (Auto) 0.3, Baso % (Auto) 0.3, Absolute Neuts (auto) 12.1 H, Absolute Lymphs (auto) 0.63 L, Nucleated RBC % 0.2, Sodium 139, Potassium 3.6, Chloride 107, Carbon Dioxide 27.0, Anion Gap 5, BUN 18, Creatinine 0.77, Estim Creat Clear Calc 134.87, Est GFR (MDRD) Af Amer 109, Est GFR (MDRD) Non-Af 90, BUN/Creatinine Ratio 23.4 H, Glucose 288 H, Calcium 7.8 L Micro: Microbiology 09/28/23 15:20 Mucosa - Nasopharyngeal Respiratory Panel (PCR) - Final Rhinovirus 09/27/23 07:30 Bronchial Lavage - Right Middle Lobe Gram Stain - Final 09/27/23 07:30 Bronchial Lavage - Right Middle Lobe Respiratory Culture - Preliminary Culture exhibits no growth. 09/27/23 10:15 Gastric Fluid/Contents Gastric Occult Blood - Final Occult Blood Positive 09/25/23 07:55 Urine, Catheterized Urine Culture - Final Culture exhibits no growth. 09/25/23 08:25 Sputum, Expectorated/Coughed Gram Stain - Final 09/25/23 08:25 Sputum, Expectorated/Coughed Respiratory Culture - Final 09/25/23 08:00 Blood Culture (Wb) - Left Hand Blood Culture - Preliminary No growth in 48 hours. 09/25/23 07:20 Blood Culture (Wb) - Left Hand Blood Culture - Preliminary No growth in 48 hours. 09/27/23 04:00 Stool Stool Occult Blood (YVETTE) - Final 09/25/23 07:55 Urine Catheter - Catheter Legionella Antigen - Final 09/25/23 07:55 Urine Catheter - Catheter Streptococcus pneumoniae Antigen (M - Final 09/25/23 07:29 Interface Orders Rapid RSV (DFA) - Final 12/19/23 07:20 Nasal Secretion SARS-CoV-2 & FLU Antigen (Rapid) - Final Physical Exam Const Constitutional Narrative: RASS -2. Good ventilator synchrony. Hirsutism noted General Appearance: patient mechanically ventilated HEENT normocephalic and head/scalp atraumatic HEENT Narrative: No lip trauma noted Mouth: endotracheal tube in place and OG tube in place Eyes PERRL, EOMs intact bilaterally and conjunctivae normal Eyes Narrative: No scleral icterus noted Neck full ROM Resp Resp Narrative: Fair vent synchrony noted Auscultation: rhonchi, wheezes and diminished lung sounds right (Little to no air movement on the right) throughout Cardio regular rate, regular rhythm, S1 normal heart sound, S2 normal heart sound, no murmurs, no rub and no gallops GI normal to inspection, nondistended, normoactive bowel sounds Extremity General Extremity: edema Skin no rashes or lesions noted Neuro Neuro Narrative: Moves all extremities. Not following commands. Sensation appears intact. Psych Mood & Affect: flat affect Charges/Coding Procedures Hospitalists Procedures: 59204 Critical Care 1st Hr
[2023-09-29] MEDS: MINERAL OIL/PETROLATUM,WHITE 3.5 GM OINT...G. OPHTHALMIC (08:00)
[2023-09-29] MEDS: guaiFENesin 10 ML UDC (200MG/10ML) GT ×3 (08:00→17:00)
[2023-09-29] MEDS: Loratadine 10 MG Tablet PO (08:00)
[2023-09-29] MEDS: Fluticasone 0.05% 1 SPRAY NASAL.SRY 2 SPRAY NASAL (08:01)
[2023-09-29] MEDS: Senna/Docusate Sodium 1 Tablet 2 TABLET PO ×2 (08:02→20:44)
[2023-09-29] MEDS: Polyethylene Glycol 3350 17 GM PACKET PO ×2 (08:04→20:45)
[2023-09-29] MEDS: Pantoprazole Sodium 40 MG in 0.9% Normal Saline (100mL MB+) 100 ML 330 MG IV ×2 (08:04→20:45)
[2023-09-29] MEDS: Chlorhexidine 15 ML PO ×2 (08:04→20:43)
[2023-09-29] MEDS: Potassium Chloride Oral Soln 20 MEQ/15 ML UDC 40 MEQ PO ×2 (08:05→17:00)
[2023-09-29] MEDS: dexMEDEtomidine 400 MCG in 0.9% Normal Saline (100mL Bag) 96 ML 24.3999999999999986 MCG CONT INF ×4 (08:33→21:21)
--- NOTE | 2023-09-29 11:34 | PN_ITS ---
Subjective Subjective Patient seen and examined. Her father was by her bedside. She remained intubated and sedated. Unable to do review of systems as she is intubated and sedated. Objective Data Objective Data Vital Signs: Vital Signs Temp Pulse Resp BP Pulse Ox O2 Del Method O2 Flow Rate 101.4 F H 63 14 126/82 H 93 Mechanical Ventilator 60 09/29/23 10:00 09/29/23 10:21 09/29/23 10:21 09/29/23 10:00 09/29/23 10:21 09/29/23 10:00 09/26/23 15:40 FiO2 50 09/29/23 10:21 Oxygen Flow Rate (L/min) 60 Oxygen Delivery Method Mechanical Ventilator Weight: 188 lb 3.2 oz Body Mass Index (BMI) 42.2 Intake & Output: Intake and Output for Last 24 Hours 09/27/23 09/28/23 09/29/23 23:59 23:59 23:59 Intake Total 4308.34 / 4342.84 3739.07 / 3851.03 1434.01 / 1434.01 Output Total 1649 / 1999 2049 / 2049 Balance 2658.34 / 2342.84 1689.07 / 1801.03 1434.01 / 1434.01 Lab / Micro Data 09/29/23 03:40 09/29/23 03:40 Labs: Laboratory Results - last 24 hr 09/28/23 23:30: Vancomycin Trough 14.8 09/29/23 03:40: WBC 13.6 H, RBC 3.65 L, Hgb 10.8 L, Hct 33.2 L, MCV 91.0, MCH 29.6, MCHC 32.5, RDW Std Deviation 45.1 H, RDW Coeff of [place] 13.4, Plt Count 234, MPV 9.5, Immature Gran % (Auto) 1.400 H, Neut % (Auto) 89.3 H, Lymph % (Auto) 4.6 L, [place] % (Auto) 4.1, Eos % (Auto) 0.3, Baso % (Auto) 0.3, Absolute Neuts (auto) 12.1 H, Absolute Lymphs (auto) 0.63 L, Nucleated RBC % 0.2, Sodium 139, Potassium 3.6, Chloride 107, Carbon Dioxide 27.0, Anion Gap 5, BUN 18, Creatinine 0.77, Estim Creat Clear Calc 134.87, Est GFR (MDRD) Af Amer 109, Est GFR (MDRD) Non-Af 90, BUN/Creatinine Ratio 23.4 H, Glucose 288 H, Calcium 7.8 L Micro: Microbiology 09/27/23 07:30 Bronchial Lavage - Right Middle Lobe Gram Stain - Final 09/27/23 07:30 Bronchial Lavage - Right Middle Lobe Respiratory Culture - Final Culture exhibits no growth. 09/28/23 15:20 Mucosa - Nasopharyngeal Respiratory Panel (PCR) - Final Rhinovirus 09/27/23 10:15 Gastric Fluid/Contents Gastric Occult Blood - Final Occult Blood Positive 09/25/23 07:55 Urine, Catheterized Urine Culture - Final Culture exhibits no growth. 09/25/23 08:25 Sputum, Expectorated/Coughed Gram Stain - Final 09/25/23 08:25 Sputum, Expectorated/Coughed Respiratory Culture - Final 09/25/23 08:00 Blood Culture (Wb) - Left Hand Blood Culture - Preliminary No growth in 48 hours. 09/25/23 07:20 Blood Culture (Wb) - Left Hand Blood Culture - Preliminary No growth in 48 hours. 09/27/23 04:00 Stool Stool Occult Blood (YVETTE) - Final 09/25/23 07:55 Urine Catheter - Catheter Legionella Antigen - Final 09/25/23 07:55 Urine Catheter - Catheter Streptococcus pneumoniae Antigen (M - Final 09/25/23 07:29 Interface Orders Rapid RSV (DFA) - Final 09/25/23 07:20 Nasal Secretion SARS-CoV-2 & FLU Antigen (Rapid) - Final Physical Exam Const Constitutional Narrative: intubated, sedated, RASS score is -4 HEENT normocephalic and head/scalp atraumatic Mouth: dry mucous membranes Eyes PERRL and EOMs intact bilaterally Neck no lymphadenopathy Lymph Lymphatic: no lymphadenopathy noted and no lymphedema noted Resp Resp Narrative: intubated, sedated, diminished breath sounds bibasally, no wheezes or crackles. On ventilator Cardio regular rate, regular rhythm, S1 normal heart sound, S2 normal heart sound and no murmurs GI normal to inspection, nondistended, normoactive bowel sounds, soft to palpation, non-tender and non-distended Extremity normal capillary refill and no clubbing, cyanosis or edema Skin General Skin Exam: no breakdown Neuro Neuro Narrative: intubated, sedated, RASS score is -4 Assessment & Plan Assessment/Plan (1) Acute hypoxic respiratory failure: (2) Pneumonia: QUALIFIERS: Pneumonia type: due to unspecified organism Laterality: right Lung location: unspecified part of lung Qualified Code(s): J18.9 - Pneumonia, unspecified organism (3) Sepsis: QUALIFIERS: Sepsis type: sepsis due to unspecified organism Sepsis acute organ dysfunction status: with acute organ dysfunction Severe sepsis acute organ dysfunction type: encephalopathy Severe sepsis shock status: without septic shock Qualified Code(s): A41.9 - Sepsis, unspecified organism; R65.20 - Severe sepsis without septic shock; G93.41 - Metabolic encephalopathy PLAN: Plan #Acute hypoxic respiratory failure due to bilateral community acquired pneumonia * on IV zosyn and vancomycin * remains intubated on the ventilator * sedated on propofol and precedex drip * critical care on board. * ID on board. * respiratory panel positive for rhinovirus, but sputum cultures were negative. * #Acute upper GI bleed * had coffee ground emesis. on IV pantoprazole * guaiac for gastric aspirate is positive. * #Septic shock due to bilateral pneumonia * On IV vancomycin and Zosyn. ID on board. Blood cultures negative during this admission. Critical care also on board. * #Autism with delayed 2 social and cognitive milestones. * Complicates acute care, expected recovery and prognosis. * DVT Prophylaxis; SCDs. Not on anticoagulants due to probable acute upper GI bleed. Charges/Coding Visit Charges Inpatient E&M: 28814 Subs Hosp L3
[2023-09-29] MEDS: Vital AF 1.2 Cal Liquid 1,000 ML 40 ML GT (17:05)
[2023-09-29] MEDS: Montelukast 10 MG Tablet PO (20:44)
[2023-09-29] MEDS: Acetaminophen 325 MG Tablet 650 MG PO (20:51)
[2023-09-30] VITALS (36 sets, daily range): BP systolic 95–128; BP diastolic 57–81; PULSE 55–77; RESP 13–32; TEMP 37.2–38.6; O2SAT 88–955; BMI 41.7
[2023-09-30] MEDS: guaiFENesin 10 ML UDC (200MG/10ML) GT ×4 (00:26→17:01)
[2023-09-30] MEDS: Dexmedetomidine 1,000 mcg in 0.9% NS 240 mL 10.6999999999999993 MCG CONT INF (00:58)
[2023-09-30 04:39] LABS: Anion Gap 5 (5-15); BUN 25 mg/dL (7-18); BUN/Creat Ratio 31.6 RATIO (10-20); Calcium,Total 7.6 mg/dL (8.5-10.1); Chloride 107 mmol/L (98-107); Creatinine, Serum 0.79 mg/dL (0.55-1.02); EST Glomerular Filtration Rate 88 mL/min (>60); Est Glom Filt Rate - Afr Amer 106 mL/min (>60); Estimated Creatinine Clearance 133.95 ml/min; Glucose 330 mg/dL (74-106); Potassium 3.7 mmol/L (3.5-5.1); Sodium Level 142 mmol/L (136-145)
[2023-09-30 05:24] LABS: Absolute Lymphocyte Count 0.79 X10^3/uL (0.83-4.51); Absolute Neutrophil Count 15.7 X10^3/uL (2.0-7.7); Basophil# 0.06 X10^3/uL; Basophil% 0.3 % (0-1); Hemoglobin 10.7 g/dL (12.0-15.0); Lymphocyte # 0.79 X10^3/ul (0.83-4.51); Lymphocyte % 4.4 % (19-41); Mean Corp Hgb Conc 31.5 g/dL (32-36); Mean Corpuscular Hgb 29.1 pg (27.0-32.0); Mean Corpuscular Volume 92.4 fL (81-99); Mean Platelet Vol. 9.8 fl (6.2-12.0); Monocyte# 0.91 X10^3/uL; Monocyte% 5.1 % (0-10); NRBC Flagged by Analyzer 0.4 % (0-5); Neutrophil # 15.72 X10^3/uL (2.7-7.7); Neutrophil % 87.5 % (47-70); Platelet Count 269 K/mm3 (150-450); RBC Distribution Width CV 13.8 % (11.6-14.6); RBC Distribution Width SD 47.4 fl (35.1-43.9); Red Blood Count 3.68 M/mm3 (4.2-5.4)
[2023-09-30] MEDS: Furosemide 20 MG/2 ML VIAL IV (05:47)
[2023-09-30] MEDS: Piperacil/Tazobactam 3.375 GM in 0.9% Normal Saline (50mL MB+) 50 ML IV ×3 (05:48→21:36)
[2023-09-30] MEDS: Vancomycin IV 1,000 MG/200 ML BAG 200 MG IV ×3 (06:15→23:39)
[2023-09-30] MEDS: fentaNYL drip 100 ML 12.5 MCG CONT INF ×3 (06:52→22:18)
[2023-09-30] MEDS: Albuterol 2.5 MG/3 ML VIAL.NEB. INHALATION ×3 (07:07→19:02)
--- NOTE | 2023-09-30 07:43 | PN.CC_ITS ---
Assessment & Plan Assessment/Plan (1) Sepsis: QUALIFIERS: Sepsis type: sepsis due to unspecified organism Sepsis acute organ dysfunction status: with acute organ dysfunction Severe sepsis acute organ dysfunction type: encephalopathy Severe sepsis shock status: without septic shock Qualified Code(s): A41.9 - Sepsis, unspecified organism; R65.20 - Severe sepsis without septic shock; G93.41 - Metabolic encephalopathy (2) Pneumonia: QUALIFIERS: Pneumonia type: due to unspecified organism Laterality: right Lung location: unspecified part of lung Qualified Code(s): J18.9 - Pneumonia, unspecified organism (3) Acute hypoxic respiratory failure: (4) Autism: PLAN: Plan RECOMMENDATIONS: 1. Continue mucolytic 2. Antibiotics per infectious disease 3. Continue PPI twice daily and monitor H&H. SCDs for DVT 4. Wean oxygen to keep saturations between 90 to 94% 5. Continue fentanyl and Precedex. Spontaneous breathing and awakening trials per protocol 6. Aggressive bowel regimen. Suppository today 7. Increase diuretic therapy 8. Add blood sugar control IMPRESSIONS: 1. Septic shock secondary to bilateral pneumonia Patient with significant fever, hypoxic respiratory failure and decreased mental status. Patient did receive sepsis fluids and responded well from a blood pressure standpoint initially. However, patient no longer requiring pressors. CT scan of the chest shows extensive infiltrates. Patient is being treated with broad-spectrum antibiotics considering previous MDRO. Infectious disease has been consulted. Patient did test positive for rhinovirus. Mild fever overnight may be secondary to Precedex. 2. Acute hypoxic respiratory failure secondary to bilateral pneumonia Patient with extensive consolidation on the right and some infiltrates on the left. Bronchoscopy following intubation did not show any significant central mucous plugging. It is unclear if this has been placed peripheral secondary to high PEEP requirements. Patient responded well to prone positioning and PEEP is down to 5. Patient has been on inhaled steroids for several years secondary to a diagnosis of asthma, but was unable to have a formal PFT. Given severity of illness, will continue patient empirically on Solu-Medrol. Will wean doses of steroids. Blood sugars have been trending up, so we will start every 6 blood sugars with sliding scale and Lantus insulin. Chest x-ray was grossly unchanged, but oxygen robbi have improved steadily. Patient can have spontaneous breathing and awakening trials, but anticipate diuresis will be necessary. 3. Autism/morbid obesity/allergies/GERD/history of MDRO Complicates care, management, recovery and prognosis. Patient's mother was very clear that she is a full code and would want everything done including intubation and CPR. Patient carries a diagnosis of GERD, but has some coffee-g round type gastric secretions. It is unclear if this is secondary to aspiration of bloody respiratory secretions or possible upper GI source. Patient placed on PPI twice daily. Patient currently receiving vancomycin pending cultures. Will need to avoid benzodiazepines as patient is at high risk for the development of delirium. Will consider GI workup if patient requires transfusion. Await bowel movement. Add suppository today TIME: 38 minutes critical care time, excluding bronchoscopy, was spent addressing patient's septic shock, hypoxic respiratory failure, pneumonia, discussing goals of therapy with family, review of all data and collaboration with care team Subjective Subjective Patient did well overnight. Patient did spike a fever, but overall is improved. Patient does not have a documented bowel movement. Patient has been tolerating tube feeds with good urine output, but remains positive. Patient did have a spontaneous breathing trial this morning, but became tachypneic and hypoxic at the end. Objective Data Objective Data Vital Signs: Vital Signs Temp Pulse Resp BP Pulse Ox O2 Del Method O2 Flow Rate 37.3 C 71 14 103/65 89 Mechanical Ventilator 60 09/30/23 07:00 09/30/23 07:08 09/30/23 07:08 09/30/23 07:00 09/30/23 07:00 09/30/23 07:00 09/26/23 15:40 FiO2 45 09/30/23 07:00 Oxygen Flow Rate (L/min) 60 Oxygen Delivery Method Mechanical Ventilator Weight: 84.425 kg Body Mass Index (BMI) 41.7 Intake & Output: Intake and Output for Last 24 Hours 09/28/23 09/29/23 09/30/23 23:59 23:59 23:59 Intake Total 3739.07 / 3851.03 3649.44 / 3786.34 1515.42 / 1515.42 Output Total 2049 / 2049 2525 / 2525 300 / 300 Balance 1689.07 / 1801.03 1124.44 / 1261.34 1215.42 / 1215.42 Lab / Micro Data Attestation: I reviewed the patient's lab results. 09/30/23 04:05 09/30/23 04:05 Labs: Laboratory Results - last 24 hr 09/30/23 04:05: WBC 18.0 H, RBC 3.68 L, Hgb 10.7 L, Hct 34.0 L, MCV 92.4, MCH 29.1, MCHC 31.5 L, RDW Std Deviation 47.4 H, RDW Coeff of [place] 13.8, Plt Count 269, MPV 9.8, Immature Gran % (Auto) 2.700 H, Neut % (Auto) 87.5 H, Lymph % (Auto) 4.4 L, [place] % (Auto) 5.1, Eos % (Auto) 0.0, Baso % (Auto) 0.3, Absolute Neuts (auto) 15.7 H, Absolute Lymphs (auto) 0.79 L, Nucleated RBC % 0.4, Sodium 142, Potassium 3.7, Chloride 107, Carbon Dioxide 30.0, Anion Gap 5, BUN 25 H, Creatinine 0.79, Estim Creat Clear Calc 133.95, Est GFR (MDRD) Af Amer 106, Est GFR (MDRD) Non-Af 88, BUN/Creatinine Ratio 31.6 H, Glucose 330 H, Calcium 7.6 L Micro: Microbiology 09/27/23 07:30 Bronchial Lavage - Right Middle Lobe Gram Stain - Final 09/27/23 07:30 Bronchial Lavage - Right Middle Lobe Respiratory Culture - Final Culture exhibits no growth. 09/28/23 15:20 Mucosa - Nasopharyngeal Respiratory Panel (PCR) - Final Rhinovirus 09/27/23 10:15 Gastric Fluid/Contents Gastric Occult Blood - Final Occult Blood Positive 09/25/23 07:55 Urine, Catheterized Urine Culture - Final Culture exhibits no growth. 09/25/23 08:25 Sputum, Expectorated/Coughed Gram Stain - Final 09/25/23 08:25 Sputum, Expectorated/Coughed Respiratory Culture - Final 09/25/23 08:00 Blood Culture (Wb) - Left Hand Blood Culture - Preliminary No growth in 48 hours. 09/25/23 07:20 Blood Culture (Wb) - Left Hand Blood Culture - Preliminary No growth in 48 hours. 09/27/23 04:00 Stool Stool Occult Blood (YVETTE) - Final 09/25/23 07:55 Urine Catheter - Catheter Legionella Antigen - Final 09/25/23 07:55 Urine Catheter - Catheter Streptococcus pneumoniae Antigen (M - Final 09/25/23 07:29 Interface Orders Rapid RSV (DFA) - Final 09/25/23 07:20 Nasal Secretion SARS-CoV-2 & FLU Antigen (Rapid) - Final Physical Exam Const Constitutional Narrative: RASS -2. Good ventilator synchrony on trial. Hirsutism noted General Appearance: patient mechanically ventilated HEENT normocephalic and head/scalp atraumatic HEENT Narrative: No lip trauma noted Mouth: endotracheal tube in place and OG tube in place Eyes PERRL, EOMs intact bilaterally and conjunctivae normal Eyes Narrative: No scleral icterus noted Neck full ROM Resp Auscultation: rhonchi, wheezes and diminished lung sounds right (Little to no air movement on the right) throughout Cardio regular rate, regular rhythm, S1 normal heart sound, S2 normal heart sound, no murmurs, no rub and no gallops GI normal to inspection, nondistended, normoactive bowel sounds Extremity General Extremity: edema Skin no rashes or lesions noted Neuro Neuro Narrative: Moves all extremities. Not following commands. Sensation appears intact. Psych Mood & Affect: flat affect Charges/Coding Procedures Hospitalists Procedures: 49547 Critical Care 1st Hr
[2023-09-30] MEDS: Chlorhexidine 15 ML PO ×2 (08:25→21:40)
[2023-09-30] MEDS: Polyethylene Glycol 3350 17 GM PACKET PO ×2 (08:26→21:35)
[2023-09-30] MEDS: Fluticasone 0.05% 1 SPRAY NASAL.SRY 2 SPRAY NASAL (08:26)
[2023-09-30] MEDS: Senna/Docusate Sodium 1 Tablet 2 TABLET PO ×2 (08:26→21:37)
[2023-09-30] MEDS: Loratadine 10 MG Tablet PO (08:27)
[2023-09-30] MEDS: MINERAL OIL/PETROLATUM,WHITE 3.5 GM OINT...G. OPHTHALMIC (08:27)
[2023-09-30] MEDS: Potassium Chloride Oral Soln 20 MEQ/15 ML UDC 40 MEQ PO ×2 (08:35→17:01)
--- NOTE | 2023-09-30 09:13 | PN_ITS ---
Subjective Subjective Patient seen and examined. She still remains intubated and sedated. RASS goal is 0 and she is able to open her eyes in response to voice today. FiO2 has been increased to 55 and PEEP is up to 8 today. She has been given increased dose of lasix. Objective Data Objective Data Vital Signs: Vital Signs Temp Pulse Resp BP Pulse Ox O2 Del Method O2 Flow Rate 99.2 F H 60 14 120/76 94 Mechanical Ventilator 60 09/30/23 08:00 09/30/23 09:00 09/30/23 09:00 09/30/23 09:00 09/30/23 09:00 09/30/23 09:00 09/26/23 15:40 FiO2 55 09/30/23 09:00 Oxygen Flow Rate (L/min) 60 Oxygen Delivery Method Mechanical Ventilator Weight: 186 lb 2 oz Body Mass Index (BMI) 41.7 Intake & Output: Intake and Output for Last 24 Hours 09/28/23 09/29/23 09/30/23 23:59 23:59 23:59 Intake Total 3739.07 / 3851.03 3649.44 / 3786.34 1654.15 / 1654.15 Output Total 2049 / 2049 2525 / 2525 1600 / 1600 Balance 1689.07 / 1801.03 1124.44 / 1261.34 54.15 / 54.15 Lab / Micro Data 09/30/23 04:05 09/30/23 04:05 Labs: Laboratory Results - last 24 hr 09/30/23 04:05: WBC 18.0 H, RBC 3.68 L, Hgb 10.7 L, Hct 34.0 L, MCV 92.4, MCH 29.1, MCHC 31.5 L, RDW Std Deviation 47.4 H, RDW Coeff of [place] 13.8, Plt Count 269, MPV 9.8, Immature Gran % (Auto) 2.700 H, Neut % (Auto) 87.5 H, Lymph % (Auto) 4.4 L, [place] % (Auto) 5.1, Eos % (Auto) 0.0, Baso % (Auto) 0.3, Absolute Neuts (auto) 15.7 H, Absolute Lymphs (auto) 0.79 L, Nucleated RBC % 0.4, Sodium 142, Potassium 3.7, Chloride 107, Carbon Dioxide 30.0, Anion Gap 5, BUN 25 H, Creatinine 0.79, Estim Creat Clear Calc 133.95, Est GFR (MDRD) Af Amer 106, Est GFR (MDRD) Non-Af 88, BUN/Creatinine Ratio 31.6 H, Glucose 330 H, Calcium 7.6 L Micro: Microbiology 09/27/23 07:30 Bronchial Lavage - Right Middle Lobe Gram Stain - Final 09/27/23 07:30 Bronchial Lavage - Right Middle Lobe Respiratory Culture - Final Culture exhibits no growth. 09/28/23 15:20 Mucosa - Nasopharyngeal Respiratory Panel (PCR) - Final Rhinovirus 09/27/23 10:15 Gastric Fluid/Contents Gastric Occult Blood - Final Occult Blood Positive 09/25/23 07:55 Urine, Catheterized Urine Culture - Final Culture exhibits no growth. 09/25/23 08:25 Sputum, Expectorated/Coughed Gram Stain - Final 09/25/23 08:25 Sputum, Expectorated/Coughed Respiratory Culture - Final 09/25/23 08:00 Blood Culture (Wb) - Left Hand Blood Culture - Preliminary No growth in 48 hours. 09/25/23 07:20 Blood Culture (Wb) - Left Hand Blood Culture - Preliminary No growth in 48 hours. 09/27/23 04:00 Stool Stool Occult Blood (YVETTE) - Final 09/25/23 07:55 Urine Catheter - Catheter Legionella Antigen - Final 09/25/23 07:55 Urine Catheter - Catheter Streptococcus pneumoniae Antigen (M - Final 09/25/23 07:29 Interface Orders Rapid RSV (DFA) - Final 09/25/23 07:20 Nasal Secretion SARS-CoV-2 & FLU Antigen (Rapid) - Final Physical Exam Const alert Constitutional Narrative: intubated, sedated, RASS score is 0 HEENT normocephalic, head/scalp atraumatic and moist oral mucous membranes Eyes PERRL, EOMs intact bilaterally and conjunctivae normal Neck no lymphadenopathy, supple, no JVD, thyroid normal and no carotid bruits General: trachea midline Lymph Lymphatic: no lymphadenopathy noted and no lymphedema noted Resp Resp Narrative: intubated, sedated, diminished breath sounds bibasally, no wheezes or crackles. On ventilator Auscultation: Negative for rales, rhonchi or wheezes Cardio regular rate, regular rhythm, S1 normal heart sound, S2 normal heart sound, no murmurs, no rub and no gallops GI normal to inspection, nondistended, normoactive bowel sounds, soft to palpation, non-tender and non-distended Extremity normal capillary refill and no clubbing, cyanosis or edema Skin no rashes or lesions noted General Skin Exam: no breakdown Neuro CN's II-XII intact bilaterally Neuro Narrative: intubated, sedated, RASS score is 0 Motor Exam: general weakness Psych Psych Narrative: Patient is nonverbal Assessment & Plan Assessment/Plan (1) Acute hypoxic respiratory failure: (2) Pneumonia: QUALIFIERS: Pneumonia type: due to unspecified organism Laterality: right Lung location: unspecified part of lung Qualified Code(s): J18.9 - Pneumonia, unspecified organism (3) Sepsis: QUALIFIERS: Sepsis type: sepsis due to unspecified organism Sepsis acute organ dysfunction status: with acute organ dysfunction Severe sepsis acute organ dysfunction type: encephalopathy Severe sepsis shock status: without septic shock Qualified Code(s): A41.9 - Sepsis, unspecified organism; R65.20 - Severe sepsis without septic shock; G93.41 - Metabolic encephalopathy PLAN: Plan #Acute hypoxic respiratory failure due to bilateral community acquired pneumonia * on IV zosyn and vancomycin * remains intubated on the ventilator * sedated on propofol and precedex drip * critical care on board. * ID on board. * respiratory panel positive for rhinovirus, but sputum cultures were negative. * FiO2 increased to 55 today, and PEEP increased to 8. * she is in cumulative positive balance by 13.95L * on IV lasix. Dose increased today * #Acute upper GI bleed * had coffee ground emesis. on IV pantoprazole * guaiac for gastric aspirate is positive. * #Septic shock due to bilateral pneumonia * On IV vancomycin and Zosyn. ID on board. Blood cultures negative during this admission. Critical care also on board. * #Autism with delayed 2 social and cognitive milestones. * Complicates acute care, expected recovery and prognosis. * DVT Prophylaxis; SCDs. Not on anticoagulants due to probable acute upper GI bleed. Total time spent on evaluation and management of patient, reviewing chart and specialist notes, discussing plan with patient and his , discussion with nursing and ancillary staff as well as documentation: 47 mins Charges/Coding Visit Charges Inpatient E&M: 28528 [facility] Hosp L3
[2023-09-30] MEDS: Pantoprazole Sodium 40 MG in 0.9% Normal Saline (100mL MB+) 100 ML 330 MG IV ×2 (09:49→21:32)
[2023-09-30] MEDS: Insulin Glargine-YFGN 100 UNIT/ML Pen 10 UNIT SC (10:42)
[2023-09-30] MEDS: Insulin Lispro 100 UNIT/ML INSULN.PEN SC ×3 (10:44→23:39)
[2023-09-30 11:07] LABS: Bedside Glucose 270 mg/dL (74-106)
[2023-09-30] MEDS: Furosemide 40 MG/4 ML Vial IV ×2 (12:52→21:36)
[2023-09-30] MEDS: Vital AF 1.2 Cal Liquid 1,000 ML 55 ML GT (15:52)
[2023-09-30 17:21] LABS: Bedside Glucose 293 mg/dL (74-106)
[2023-09-30] MEDS: Dexmedetomidine 1,000 mcg in 0.9% NS 240 mL 14.9000000000000004 MCG CONT INF (21:00)
[2023-09-30] MEDS: Vancomycin Trough/Random Due 1 LAB MC (21:36)
[2023-09-30] MEDS: Montelukast 10 MG Tablet PO (21:37)
[2023-09-30 23:21] LABS: Vancomycin, Trough Level 18.2 ug/mL (5.0-15.0)
--- NOTE | 2023-09-30 23:46 | PCM.RX.CS ---
Consult Antibiotic Management Pharmacy has been consulted to manage selected antiobiotic: Vancomycin Type of Intervention Type of Consult: Follow-up Suspected Infection Suspected Infection: Sepsis and Pneumonia Labs Labs: Sodium 142 mmol/L (136-145) 09/30/23 04:05 Potassium 3.7 mmol/L (3.5-5.1) 09/30/23 04:05 Chloride 107 mmol/L (98-107) 09/30/23 04:05 Carbon Dioxide 30.0 mmol/L (21.0-32.0) 09/30/23 04:05 Anion Gap 5 (5-15) 09/30/23 04:05 BUN 25 mg/dL (7-18) H 09/30/23 04:05 Creatinine 0.79 mg/dL (0.55-1.02) 09/30/23 04:05 Est GFR (MDRD) Af Amer 106 mL/min (>60) 09/30/23 04:05 Est GFR (MDRD) Non-Af 88 mL/min (>60) 09/30/23 04:05 BUN/Creatinine Ratio 31.6 RATIO (10-20) H 09/30/23 04:05 Glucose 330 mg/dL (74-106) H 09/30/23 04:05 Vancomycin Trough 18.2 ug/mL (5.0-15.0) H 09/30/23 22:20 Random Vancomycin 6.1 ug/mL (0.0-15.0) 09/27/23 21:55 Microbiology Microbiology: Microbiology 09/25/23 08:00 Blood Culture (Wb) - Left Hand Blood Culture - Final No growth in 5 days. 09/25/23 07:20 Blood Culture (Wb) - Left Hand Blood Culture - Final No growth in 5 days. 09/27/23 07:30 Bronchial Lavage - Right Middle Lobe Gram Stain - Final 09/27/23 07:30 Bronchial Lavage - Right Middle Lobe Respiratory Culture - Final Culture exhibits no growth. 09/28/23 15:20 Mucosa - Nasopharyngeal Respiratory Panel (PCR) - Final Rhinovirus 09/27/23 10:15 Gastric Fluid/Contents Gastric Occult Blood - Final Occult Blood Positive 09/25/23 07:55 Urine, Catheterized Urine Culture - Final Culture exhibits no growth. 09/25/23 08:25 Sputum, Expectorated/Coughed Gram Stain - Final 09/25/23 08:25 Sputum, Expectorated/Coughed Respiratory Culture - Final 09/27/23 04:00 Stool Stool Occult Blood (YVETTE) - Final 09/25/23 07:55 Urine Catheter - Catheter Legionella Antigen - Final 09/25/23 07:55 Urine Catheter - Catheter Streptococcus pneumoniae Antigen (M - Final 09/25/23 07:29 Interface Orders Rapid RSV (DFA) - Final 09/25/23 07:20 Nasal Secretion SARS-CoV-2 & FLU Antigen (Rapid) - Final Dosing Weight Weight used for dosin.4 kg Estimated Creatinine Clearance Estimated Creatinine Clearance: 134 Goal Trough Goal Trough: 15-20 mcg/mL Pharmacy Plan for Drug Dosing Pharmacy Plan for Drug Dosing: Vancomycin trough level of 18.2, drawn appropriately 7.66hrs post-dose, was within the target range of 15-20. Will continue dosing at 1000mg q8h and re-draw a trough in two days. Pharmacy Service will continue to monitor and adjust dosing as required. Follow-Up Labs Follow-Up Labs: Trough: Vancomycin Date/Time Labs Ordered Labs to be done on [date and time ordered]: 10/02/23 @1668
[2023-10-01] VITALS (35 sets, daily range): BP systolic 94–111; BP diastolic 58–77; PULSE 50–67; RESP 14–60; TEMP 37–37.4; O2SAT 90–97; BMI 40.3
[2023-10-01 00:06] LABS: Bedside Glucose 275 mg/dL (74-106)
[2023-10-01] MEDS: guaiFENesin 10 ML UDC (200MG/10ML) GT ×5 (00:59→23:17)
[2023-10-01 03:59] LABS: Hematocrit 35.5 % (37-47); Hemoglobin 11.3 g/dL (12.0-15.0); Mean Corp Hgb Conc 31.8 g/dL (32-36); Mean Corpuscular Hgb 29.4 pg (27.0-32.0); Mean Corpuscular Volume 92.4 fL (81-99); Mean Platelet Vol. 9.7 fl (6.2-12.0); POSITIVE COUNT YES; POSITIVE MORPHOLOGY YES; Platelet Count 290 K/mm3 (150-450); RBC Distribution Width CV 13.7 % (11.6-14.6); RBC Distribution Width SD 46.5 fl (35.1-43.9); Red Blood Count 3.84 M/mm3 (4.2-5.4); White Blood Count 13.7 K/mm3 (4.4-11.0)
[2023-10-01 04:01] LABS: Differential Indicated MANUAL DIFF
[2023-10-01 04:12] LABS: Anion Gap 7 (5-15); BUN 27 mg/dL (7-18); BUN/Creat Ratio 35.2 RATIO (10-20); Calcium,Total 7.8 mg/dL (8.5-10.1); Chloride 101 mmol/L (98-107); Creatinine, Serum 0.77 mg/dL (0.55-1.02); EST Glomerular Filtration Rate 91 mL/min (>60); Est Glom Filt Rate - Afr Amer 110 mL/min (>60); Estimated Creatinine Clearance 131.22 ml/min; Glucose 287 mg/dL (74-106); Potassium 4.1 mmol/L (3.5-5.1); Sodium Level 140 mmol/L (136-145)
--- NOTE | 2023-10-01 06:08 | PCM.PN.INT ---
Assessment & Plan Assessment/Plan (1) Sepsis: QUALIFIERS: Sepsis type: sepsis due to unspecified organism Sepsis acute organ dysfunction status: with acute organ dysfunction Severe sepsis acute organ dysfunction type: encephalopathy Severe sepsis shock status: without septic shock Qualified Code(s): A41.9 - Sepsis, unspecified organism; R65.20 - Severe sepsis without septic shock; G93.41 - Metabolic encephalopathy (2) Pneumonia: QUALIFIERS: Pneumonia type: due to unspecified organism Laterality: right Lung location: unspecified part of lung Qualified Code(s): J18.9 - Pneumonia, unspecified organism (3) Acute hypoxic respiratory failure: (4) Autism: PLAN: Plan RECOMMENDATIONS: 1. Continue mucolytic and diuretics 2. Antibiotics per infectious disease 3. Continue PPI twice daily and monitor H&H. SCDs for DVT 4. Wean oxygen to keep saturations between 90 to 94% 5. Continue fentanyl and Precedex. Spontaneous breathing and awakening trials per protocol 6. Okay to back off on bowel regimen 7. Increase diuretic therapy 8. Increase basal insulin IMPRESSIONS: 1. Septic shock secondary to bilateral pneumonia Patient with significant fever, hypoxic respiratory failure and decreased mental status. Patient did receive sepsis fluids and responded well from a blood pressure standpoint initially. However, patient no longer requiring pressors. CT scan of the chest shows extensive infiltrates. Patient is being treated with broad-spectrum antibiotics considering previous MDRO. Infectious disease has been consulted. Patient did test positive for rhinovirus. No fevers been noted in the last 24 hours 2. Acute hypoxic respiratory failure secondary to bilateral pneumonia Patient with extensive consolidation on the right and some infiltrates on the left. Bronchoscopy following intubation did not show any significant central mucous plugging. It is unclear if this has been placed peripheral secondary to high PEEP requirements. Patient responded well to prone positioning and PEEP is down to 5. Patient has been on inhaled steroids for several years secondary to a diagnosis of asthma, but was unable to have a formal PFT. Given severity of illness, will continue patient empirically on Solu-Medrol. Will wean doses of steroids. Blood sugars have been trending up, so we will start every 6 blood sugars with sliding scale and Lantus insulin. Chest x-ray was grossly unchanged, but oxygen robbi have improved steadily. Patient can have spontaneous breathing and awakening trials, but anticipate continued diuresis will be necessary. 3. Autism/morbid obesity/allergies/GERD/history of MDRO Complicates care, management, recovery and prognosis. Patient's mother was very clear that she is a full code and would want everything done including intubation and CPR. Patient carries a diagnosis of GERD, but has some coffee-ground type gastric secretions. It is unclear if this is secondary to aspiration of bloody respiratory secretions or possible upper GI source. Patient placed on PPI twice daily. Patient currently receiving vancomycin pending cultures. Will need to avoid benzodiazepines as patient is at high risk for the development of delirium. Will consider GI workup if patient requires transfusion. Await bowel movement. Add suppository today TIME: 32 minutes critical care time, excluding bronchoscopy, was spent addressing patient's septic shock, hypoxic respiratory failure, pneumonia, discussing goals of therapy with family, review of all data and collaboration with care team Subjective Subjective Patient did okay overnight. Patient has had several bowel movements over the last 24 hours. Patient tolerating tube feeds. Patient did have a spontaneous breathing trial this morning, but became hypoxic at the end. Patient was not as tachypneic today as yesterday. Did discuss with the father at the bedside. Objective Data Objective Data Vital Signs: Vital Signs Temp Pulse Resp BP Pulse Ox O2 Del Method O2 Flow Rate 37.1 C 53 L 14 104/70 92 Mechanical Ventilator 60 10/01/23 05:00 10/01/23 05:00 10/01/23 05:00 10/01/23 05:00 10/01/23 05:00 10/01/23 05:00 09/26/23 15:40 FiO2 35 10/01/23 05:00 Oxygen Flow Rate (L/min) 60 Oxygen Delivery Method Mechanical Ventilator Weight: 81.511 kg Body Mass Index (BMI) 40.3 Intake & Output: Intake and Output for Last 24 Hours 09/29/23 09/30/23 10/01/23 23:59 23:59 23:59 Intake Total 3649.44 / 3786.34 3266.66 / 3481.56 1404.93 / 1404.93 Output Total 2525 / 2525 3525 / 3825 2049 / 2049 Balance 1124.44 / 1261.34 -258.34 / -343.44 -645.07 / -645.07 Lab / Micro Data Attestation: I reviewed the patient's lab results. 10/01/23 03:47 10/01/23 03:47 Labs: Laboratory Results - last 24 hr 09/30/23 10:41: POC Glucose 270 H 09/30/23 17:02: POC Glucose 293 H 09/30/23 22:20: Vancomycin Trough 18.2 H 09/30/23 23:44: POC Glucose 275 H 10/01/23 03:47: WBC 13.7 H, RBC 3.84 L, Hgb 11.3 L, Hct 35.5 L, MCV 92.4, MCH 29.4, MCHC 31.8 L, RDW Std Deviation 46.5 H, RDW Coeff of [place] 13.7, Plt Count 290, MPV 9.7, Neut % (Auto) Not Reportable, Sodium 140, Potassium 4.1, Chloride 101, Carbon Dioxide 32.0, Anion Gap 7, BUN 27 H, Creatinine 0.77, Estim Creat Clear Calc 131.22, Est GFR (MDRD) Af Amer 110, Est GFR (MDRD) Non-Af 91, BUN/Creatinine Ratio 35.2 H, Glucose 287 H, Calcium 7.8 L Micro: Microbiology 09/25/23 08:00 Blood Culture (Wb) - Left Hand Blood Culture - Final No growth in 5 days. 09/25/23 07:20 Blood Culture (Wb) - Left Hand Blood Culture - Final No growth in 5 days. 09/27/23 07:30 Bronchial Lavage - Right Middle Lobe Gram Stain - Final 09/27/23 07:30 Bronchial Lavage - Right Middle Lobe Respiratory Culture - Final Culture exhibits no growth. 09/28/23 15:20 Mucosa - Nasopharyngeal Respiratory Panel (PCR) - Final Rhinovirus 09/27/23 10:15 Gastric Fluid/Contents Gastric Occult Blood - Final Occult Blood Positive 09/25/23 07:55 Urine, Catheterized Urine Culture - Final Culture exhibits no growth. 09/25/23 08:25 Sputum, Expectorated/Coughed Gram Stain - Final 09/25/23 08:25 Sputum, Expectorated/Coughed Respiratory Culture - Final 09/27/23 04:00 Stool Stool Occult Blood (YVETTE) - Final 09/25/23 07:55 Urine Catheter - Catheter Legionella Antigen - Final 09/25/23 07:55 Urine Catheter - Catheter Streptococcus pneumoniae Antigen (M - Final 09/25/23 07:29 Interface Orders Rapid RSV (DFA) - Final 09/25/23 07:20 Nasal Secretion SARS-CoV-2 & FLU Antigen (Rapid) - Final Physical Exam Const Constitutional Narrative: RASS -2. Good ventilator synchrony on trial. Hirsutism noted General Appearance: patient mechanically ventilated HEENT normocephalic and head/scalp atraumatic Eyes PERRL, EOMs intact bilaterally and conjunctivae normal Eyes Narrative: No scleral icterus noted Neck full ROM Resp Resp Narrative: Fair vent synchrony noted Effort and Inspection: tachypneic and labored Auscultation: rhonchi, wheezes and diminished lung sounds bilateral (Better air exchange) throughout Cardio regular rate, regular rhythm, S1 normal heart sound, S2 normal heart sound, no murmurs, no rub and no gallops GI normal to inspection, nondistended, normoactive bowel sounds Extremity no clubbing, cyanosis or edema General Extremity: edema Skin no rashes or lesions noted Neuro Neuro Narrative: Moves all extremities. Not following commands. Sensation appears intact. Psych Activity / Motor Behavior: restless Mood & Affect: flat affect Charges/Coding Procedures Hospitalists Procedures: 12954 Critical Care 1st Hr
[2023-10-01] MEDS: Vancomycin IV 1,000 MG/200 ML BAG 200 MG IV ×3 (06:13→23:14)
[2023-10-01] MEDS: Furosemide 40 MG/4 ML Vial IV ×3 (06:13→20:46)
[2023-10-01] MEDS: Piperacil/Tazobactam 3.375 GM in 0.9% Normal Saline (50mL MB+) 50 ML IV ×3 (06:13→20:45)
[2023-10-01] MEDS: Insulin Lispro 100 UNIT/ML INSULN.PEN SC ×4 (06:36→23:13)
[2023-10-01] MEDS: fentaNYL drip 100 ML 12.5 MCG CONT INF ×3 (06:43→23:14)
[2023-10-01 06:46] LABS: Lymphocyte 8 % (19-41); Monocyte 6 % (0-10); Myelocyte 1 % (0-0); Neutrophil-Segmented 85 % (47-70); Total Cells Counted 100 (MANUAL DIFF)
[2023-10-01 06:47] LABS: Absolute Neutrophil Count 11.6 X10^3/uL (2.0-7.7); Platelet Estimate ADEQUATE (ADEQ)
[2023-10-01] MEDS: Albuterol 2.5 MG/3 ML VIAL.NEB. INHALATION ×3 (07:08→18:50)
[2023-10-01] MEDS: Chlorhexidine 15 ML PO ×2 (07:48→20:45)
[2023-10-01] MEDS: Senna/Docusate Sodium 1 Tablet 2 TABLET PO ×2 (07:48→20:46)
[2023-10-01] MEDS: Fluticasone 0.05% 1 SPRAY NASAL.SRY 2 SPRAY NASAL (07:48)
[2023-10-01] MEDS: MINERAL OIL/PETROLATUM,WHITE 3.5 GM OINT...G. OPHTHALMIC (07:48)
[2023-10-01] MEDS: Loratadine 10 MG Tablet PO (07:49)
[2023-10-01] MEDS: CHLORHEXIDINE GLUC 2% CLOTH 1 EACH TOWELETTE TOPICAL (07:56)
[2023-10-01] MEDS: Potassium Chloride Oral Soln 20 MEQ/15 ML UDC 40 MEQ PO ×2 (07:56→17:08)
[2023-10-01] MEDS: Pantoprazole Sodium 40 MG in 0.9% Normal Saline (100mL MB+) 100 ML 330 MG IV ×2 (08:01→20:46)
[2023-10-01] MEDS: Insulin Glargine-YFGN 100 UNIT/ML Pen 20 UNIT SC (08:02)
[2023-10-01 09:24] LABS: Bedside Glucose 240 mg/dL (74-106)
--- NOTE | 2023-10-01 09:39 | PN_ITS ---
Subjective Subjective Patient seen and examined. Her father was by her bedside. Father had no active complaints. RASS score remains 0. Unable to do review of systems as she is intubated and on sedatives. FiO2 is down to 40 and PEEP to 5. Objective Data Objective Data Vital Signs: Vital Signs Temp Pulse Resp BP Pulse Ox O2 Del Method O2 Flow Rate 98.7 F 58 L 14 98/68 93 Mechanical Ventilator 60 10/01/23 09:00 10/01/23 09:00 10/01/23 09:00 10/01/23 09:00 10/01/23 09:00 10/01/23 09:00 09/26/23 15:40 FiO2 40 10/01/23 09:00 Oxygen Flow Rate (L/min) 60 Oxygen Delivery Method Mechanical Ventilator Weight: 179 lb 11.2 oz Body Mass Index (BMI) 40.3 Intake & Output: Intake and Output for Last 24 Hours 09/29/23 09/30/23 10/01/23 23:59 23:59 23:59 Intake Total 3649.44 / 3786.34 3266.66 / 3481.56 1922.13 / 1922.13 Output Total 2525 / 2525 3525 / 3825 2049 / 2049 Balance 1124.44 / 1261.34 -258.34 / -343.44 -127.87 / -127.87 Lab / Micro Data 10/01/23 03:47 10/01/23 03:47 Labs: Laboratory Results - last 24 hr 09/30/23 10:41: POC Glucose 270 H 09/30/23 17:02: POC Glucose 293 H 09/30/23 22:20: Vancomycin Trough 18.2 H 09/30/23 23:44: POC Glucose 275 H 10/01/23 03:47: WBC 13.7 H, RBC 3.84 L, Hgb 11.3 L, Hct 35.5 L, MCV 92.4, MCH 29.4, MCHC 31.8 L, RDW Std Deviation 46.5 H, RDW Coeff of [place] 13.7, Plt Count 290, MPV 9.7, Neut % (Auto) Not Reportable, Absolute Neuts (auto) 11.6 H, Absolute Lymphs (auto) 1.10, Total Counted 100, Neutrophils % (Manual) 85 H, Lymphocytes % (Manual) 8 L, Monocytes % (Manual) 6, Myelocytes % 1 H, Diff Path Review May foll, Platelet Estimate ADEQUATE, Sodium 140, Potassium 4.1, Chloride 101, Carbon Dioxide 32.0, Anion Gap 7, BUN 27 H, Creatinine 0.77, Estim Creat Clear Calc 131.22, Est GFR (MDRD) Af Amer 110, Est GFR (MDRD) Non-Af 91, BUN/Creatinine Ratio 35.2 H, Glucose 287 H, Calcium 7.8 L 10/01/23 06:34: POC Glucose 240 H Micro: Microbiology 09/25/23 08:00 Blood Culture (Wb) - Left Hand Blood Culture - Final No growth in 5 days. 09/25/23 07:20 Blood Culture (Wb) - Left Hand Blood Culture - Final No growth in 5 days. 09/27/23 07:30 Bronchial Lavage - Right Middle Lobe Gram Stain - Final 09/27/23 07:30 Bronchial Lavage - Right Middle Lobe Respiratory Culture - Final Culture exhibits no growth. 09/28/23 15:20 Mucosa - Nasopharyngeal Respiratory Panel (PCR) - Final Rhinovirus 09/27/23 10:15 Gastric Fluid/Contents Gastric Occult Blood - Final Occult Blood Positive 09/25/23 07:55 Urine, Catheterized Urine Culture - Final Culture exhibits no growth. 09/25/23 08:25 Sputum, Expectorated/Coughed Gram Stain - Final 09/25/23 08:25 Sputum, Expectorated/Coughed Respiratory Culture - Final 09/27/23 04:00 Stool Stool Occult Blood (YVETTE) - Final 09/25/23 07:55 Urine Catheter - Catheter Legionella Antigen - Final 09/25/23 07:55 Urine Catheter - Catheter Streptococcus pneumoniae Antigen (M - Final 09/25/23 07:29 Interface Orders Rapid RSV (DFA) - Final 09/25/23 07:20 Nasal Secretion SARS-CoV-2 & FLU Antigen (Rapid) - Final Physical Exam Const Constitutional Narrative: intubated, sedated, RASS score is 0 HEENT normocephalic, head/scalp atraumatic and moist oral mucous membranes Eyes PERRL, EOMs intact bilaterally and conjunctivae normal Neck no lymphadenopathy, supple, no JVD, thyroid normal and no carotid bruits General: trachea midline Lymph Lymphatic: no lymphadenopathy noted and no lymphedema noted Resp Resp Narrative: intubated, sedated, diminished breath sounds bibasally, no wheezes or crackles. On ventilator Auscultation: Negative for rales, rhonchi or wheezes Cardio regular rate, regular rhythm, S1 normal heart sound, S2 normal heart sound, no murmurs, no rub and no gallops GI normal to inspection, nondistended, normoactive bowel sounds, soft to palpation, non-tender and non-distended Extremity normal capillary refill and no clubbing, cyanosis or edema Skin no rashes or lesions noted General Skin Exam: no breakdown Neuro CN's II-XII intact bilaterally Neuro Narrative: intubated, sedated, RASS score is 0 Sensorium / Orientation: awake and alert Psych Psych Narrative: Patient is nonverbal Assessment & Plan Assessment/Plan (1) Acute hypoxic respiratory failure: (2) Pneumonia: QUALIFIERS: Pneumonia type: due to unspecified organism Laterality: right Lung location: unspecified part of lung Qualified Code(s): J18.9 - Pneumonia, unspecified organism (3) Sepsis: QUALIFIERS: Sepsis type: sepsis due to unspecified organism Sepsis acute organ dysfunction status: with acute organ dysfunction Severe sepsis acute organ dysfunction type: encephalopathy Severe sepsis shock status: without septic shock Qualified Code(s): A41.9 - Sepsis, unspecified organism; R65.20 - Severe sepsis without septic shock; G93.41 - Metabolic encephalopathy PLAN: Plan #Acute hypoxic respiratory failure due to bilateral community acquired pneumonia * on IV zosyn and vancomycin * remains intubated on the ventilator * sedated on propofol and precedex drip * critical care on board. * ID on board. * respiratory panel positive for rhinovirus, but sputum cultures were negative. * FiO2 down to 40, with PEEP of 5. * she is in cumulative positive balance by 13.5L * on IV lasix 40mg q8 * #Acute upper GI bleed * had coffee ground emesis. on IV pantoprazole * guaiac for gastric aspirate is positive. * to be evaluated by GI for EGD when she is more stable. * #Septic shock due to bilateral pneumonia * On IV vancomycin and Zosyn. ID on board. Blood cultures negative during this admission. Critical care also on board. * #Autism with delayed 2 social and cognitive milestones. * Complicates acute care, expected recovery and prognosis. * DVT Prophylaxis; SCDs. Not on anticoagulants due to probable acute upper GI bleed. Total time spent on evaluation and management of patient, reviewing chart and specialist notes, discussing plan with patient and his , discussion with nursing and ancillary staff as well as documentation: 46 mins Charges/Coding Visit Charges Inpatient E&M: 85688 Subs Hosp L3
[2023-10-01] MEDS: Vital AF 1.2 Cal Liquid 1,000 ML 55 ML GT (11:35)
[2023-10-01 11:44] LABS: Bedside Glucose 242 mg/dL (74-106)
[2023-10-01] MEDS: Dexmedetomidine 1,000 mcg in 0.9% NS 240 mL 14.3000000000000007 MCG CONT INF (15:27)
[2023-10-01 17:33] LABS: Bedside Glucose 303 mg/dL (74-106)
[2023-10-01] MEDS: Montelukast 10 MG Tablet PO (20:46)
[2023-10-02] VITALS (30 sets, daily range): BP systolic 91–146; BP diastolic 56–91; PULSE 48–91; RESP 14–37; TEMP 36.8–37.2; O2SAT 89–96; BMI 38.9
[2023-10-02 04:08] LABS: Hematocrit 39.1 % (37-47); Hemoglobin 12.5 g/dL (12.0-15.0); Mean Corpuscular Hgb 29.6 pg (27.0-32.0); Mean Corpuscular Volume 92.4 fL (81-99); Mean Platelet Vol. 9.8 fl (6.2-12.0); POSITIVE COUNT YES; POSITIVE MORPHOLOGY YES; Platelet Count 353 K/mm3 (150-450); RBC Distribution Width CV 13.6 % (11.6-14.6); RBC Distribution Width SD 46.3 fl (35.1-43.9); Red Blood Count 4.23 M/mm3 (4.2-5.4); White Blood Count 14.6 K/mm3 (4.4-11.0)
[2023-10-02 04:09] LABS: Differential Indicated MANUAL DIFF
[2023-10-02 04:23] LABS: Anion Gap 7 (5-15); BUN 31 mg/dL (7-18); BUN/Creat Ratio 36.8 RATIO (10-20); Calcium,Total 8.1 mg/dL (8.5-10.1); Chloride 101 mmol/L (98-107); Creatinine, Serum 0.84 mg/dL (0.55-1.02); EST Glomerular Filtration Rate 81 mL/min (>60); Est Glom Filt Rate - Afr Amer 98 mL/min (>60); Estimated Creatinine Clearance 120.29 ml/min; Glucose 296 mg/dL (74-106); Potassium 4.7 mmol/L (3.5-5.1); Sodium Level 139 mmol/L (136-145)
[2023-10-02 04:39] LABS: Lymphocyte 14 % (19-41); Metamyelocyte 3 % (0-1); Monocyte 4 % (0-10); Myelocyte 1 % (0-0); Neutrophil-Segmented 78 % (47-70); Nucleated Red Bld Cells,Manual 1 % (0-5); Total Cells Counted 100 (MANUAL DIFF)
[2023-10-02 04:40] LABS: Absolute Lymphocyte Count 2.04 X10^3/uL (0.83-4.51); Lymphocyte # 2.04 X10^3/ul (0.83-4.51); Neutrophil # 11.96 X10^3/uL (2.7-7.7); Platelet Estimate ADEQUATE (ADEQ)
[2023-10-02 04:41] LABS: Polychromasia RARE; Red Cell Morphology N CYTIC NORMAL (NORM C&C)
[2023-10-02] MEDS: CHLORHEXIDINE GLUC 2% CLOTH 1 EACH TOWELETTE TOPICAL (05:24)
[2023-10-02] MEDS: Furosemide 40 MG/4 ML Vial IV ×3 (05:25→21:06)
[2023-10-02] MEDS: Piperacil/Tazobactam 3.375 GM in 0.9% Normal Saline (50mL MB+) 50 ML IV ×3 (05:25→20:55)
[2023-10-02] MEDS: guaiFENesin 10 ML UDC (200MG/10ML) GT (05:25)
[2023-10-02 05:58] LABS: Allen Test Positive; Base Excess 9 mmol/L (-2 to +2); Bicarbonate 32.1 mmol/L (22-26); Blood Gas Specimen Type ART; Mode CPAP/PS; O2 Delivery Device Adult Vent; PEEP 5; PO2 63 mmHG (75-100); SITE L Radial; SO2 94 % (95-99); Total Carbon Dioxide 33 mmol/L; pCO2 39.3 mmHg (35-45); pH 7.52 (7.35-7.45)
[2023-10-02] MEDS: Insulin Lispro 100 UNIT/ML INSULN.PEN SC ×2 (06:38→17:35)
[2023-10-02] MEDS: Vancomycin IV 1,000 MG/200 ML BAG 200 MG IV (06:38)
[2023-10-02] MEDS: Albuterol 2.5 MG/3 ML VIAL.NEB. INHALATION ×3 (06:50→19:28)
--- NOTE | 2023-10-02 07:16 | PCM.PN.INT ---
Assessment & Plan Assessment/Plan (1) Sepsis: QUALIFIERS: Sepsis type: sepsis due to unspecified organism Sepsis acute organ dysfunction status: with acute organ dysfunction Severe sepsis acute organ dysfunction type: encephalopathy Severe sepsis shock status: without septic shock Qualified Code(s): A41.9 - Sepsis, unspecified organism; R65.20 - Severe sepsis without septic shock; G93.41 - Metabolic encephalopathy (2) Pneumonia: QUALIFIERS: Pneumonia type: due to unspecified organism Laterality: right Lung location: unspecified part of lung Qualified Code(s): J18.9 - Pneumonia, unspecified organism (3) Acute hypoxic respiratory failure: (4) Autism: PLAN: Plan RECOMMENDATIONS: 1. Continue mucolytic and diuretics 2. Antibiotics per infectious disease 3. Continue PPI twice daily and monitor H&H. SCDs for DVT 4. Okay to proceed with extubation 5. Discontinue fentanyl and Precedex if she does well after extubation 6. Continue bowel regimen 7. Continue diuretic therapy 8. Monitor basal insulin as this may need to be adjusted with cessation of tube feeds IMPRESSIONS: 1. Septic shock secondary to bilateral pneumonia Patient with significant fever, hypoxic respiratory failure and decreased mental status. Patient did receive sepsis fluids and responded well from a blood pressure standpoint initially. However, patient no longer requiring pressors. CT scan of the chest shows extensive infiltrates. Patient is being treated with broad-spectrum antibiotics considering previous MDRO. Infectious disease has been consulted. Patient did test positive for rhinovirus. No fevers been noted in the last 24 hours. Anticipate 7 days of broad-spectrum antibiotics would be sufficient. 2. Acute hypoxic respiratory failure secondary to bilateral pneumonia Patient with extensive consolidation on the right and some infiltrates on the left. Bronchoscopy following intubation did not show any significant central mucous plugging. It is unclear if this has been placed peripheral secondary to high PEEP requirements. Patient responded well to prone positioning and PEEP is down to 5. Patient has been on inhaled steroids for several years secondary to a diagnosis of asthma, but was unable to have a formal PFT. Given severity of illness, will continue patient empirically on Solu-Medrol. Potentially transition to prednisone if patient is able to take p.o following extubation. Blood sugars have been trending up, so we started every 6 blood sugars with sliding scale and Lantus insulin. Will have to watch this closely as patient will not receive tube feeds following extubation. Okay to move forward with extubation. 3. Autism/morbid obesity/allergies/GERD/history of MDRO Complicates care, management, recovery and prognosis. Patient's mother was very clear that she is a full code and would want everything done including intubation and CPR. Patient carries a diagnosis of GERD, but has some coffee-ground type gastric secretions. It is unclear if this is secondary to aspiration of bloody respiratory secretions or possible upper GI source. Patient placed on PPI twice daily. Patient currently receiving vancomycin pending cultures. Will need to avoid benzodiazepines as patient is at high risk for the development of delirium. Will consider GI workup if patient requires transfusion. TIME: 38 minutes critical care time was spent addressing patient's septic shock, hypoxic respiratory failure, pneumonia, discussing goals of therapy with family, review of all data and collaboration with care team Subjective Subjective Patient did well overnight. Patient did have a bowel movement and diuresed well. Patient has tolerated spontaneous breathing trial well. Dad at the bedside with no concerns Objective Data Objective Data Vital Signs: Vital Signs Temp Pulse Resp BP Pulse Ox O2 Del Method O2 Flow Rate 37.1 C 76 18 103/63 94 Mechanical Ventilator 10 10/02/23 04:00 10/02/23 07:00 10/02/23 07:00 10/02/23 07:00 10/02/23 07:00 10/02/23 07:00 10/02/23 04:00 FiO2 40 10/02/23 07:00 Oxygen Flow Rate (L/min) 10 Oxygen Delivery Method Mechanical Ventilator Weight: 78.698 kg Body Mass Index (BMI) 38.9 Intake & Output: Intake and Output for Last 24 Hours 09/30/23 10/01/23 10/02/23 23:59 23:59 23:59 Intake Total 3266.66 / 3481.56 3546.35 / 3770.23 1739.40 / 1739.40 Output Total 3525 / 3825 5550 / 6950 2250 / 2250 Balance -258.34 / -343.44 -2003.65 / -3179.77 -510.60 / -510.60 Lab / Micro Data Attestation: I reviewed the patient's lab results. 10/02/23 03:55 10/02/23 03:55 Labs: Laboratory Results - last 24 hr 10/01/23 06:34: POC Glucose 240 H 10/01/23 11:17: POC Glucose 242 H 10/01/23 17:07: POC Glucose 303 H 10/02/23 03:55: WBC 14.6 H, RBC 4.23, Hgb 12.5, Hct 39.1, MCV 92.4, MCH 29.6, MCHC 32.0, RDW Std Deviation 46.3 H, RDW Coeff of [place] 13.6, Plt Count 353, MPV 9.8, Neut % (Auto) Not Reportable, Absolute Neuts (auto) 12.0 H, Absolute Lymphs (auto) 2.04, Total Counted 100, Neutrophils % (Manual) 78 H, Lymphocytes % (Manual) 14 L, Monocytes % (Manual) 4, Metamyelocytes % 3 H, Myelocytes % 1 H, Nucleated RBCs/100 WBC 1, Diff Path Review February, Platelet Estimate ADEQUATE, RBC Morphology N CYTIC, Polychromasia RARE, Sodium 139, Potassium 4.7, Chloride 101, Carbon Dioxide 31.0, Anion Gap 7, BUN 31 H, Creatinine 0.84, Estim Creat Clear Calc 120.29, Est GFR (MDRD) Af Amer 98, Est GFR (MDRD) Non-Af 81, BUN/Creatinine Ratio 36.8 H, Glucose 296 H, Calcium 8.1 L Micro: Microbiology 09/25/23 08:00 Blood Culture (Wb) - Left Hand Blood Culture - Final No growth in 5 days. 09/25/23 07:20 Blood Culture (Wb) - Left Hand Blood Culture - Final No growth in 5 days. 09/27/23 07:30 Bronchial Lavage - Right Middle Lobe Gram Stain - Final 09/27/23 07:30 Bronchial Lavage - Right Middle Lobe Respiratory Culture - Final Culture exhibits no growth. 09/28/23 15:20 Mucosa - Nasopharyngeal Respiratory Panel (PCR) - Final Rhinovirus 09/27/23 10:15 Gastric Fluid/Contents Gastric Occult Blood - Final Occult Blood Positive 09/25/23 07:55 Urine, Catheterized Urine Culture - Final Culture exhibits no growth. 09/25/23 08:25 Sputum, Expectorated/Coughed Gram Stain - Final 09/25/23 08:25 Sputum, Expectorated/Coughed Respiratory Culture - Final 09/27/23 04:00 Stool Stool Occult Blood (YVETTE) - Final 09/25/23 07:55 Urine Catheter - Catheter Legionella Antigen - Final 09/25/23 07:55 Urine Catheter - Catheter Streptococcus pneumoniae Antigen (M - Final 09/25/23 07:29 Interface Orders Rapid RSV (DFA) - Final 09/25/23 07:20 Nasal Secretion SARS-CoV-2 & FLU Antigen (Rapid) - Final ABG Data ABG results: ABG 10/02/23 05:54 Specimen Type ART Sample Site L Radial pH 7.52 H Bicarbonate Actual 32.1 H Total CO2 33 Base Excess 9 H O2 Saturation 94 L O2 % 40.0 ABG pCO2 39.3 ABG pO2 63 L Adolfo Test Positive O2 Delivery Device Adult Vent Vent Mode CPAP/PS POC PEEP 5 Attestation: I personally reviewed and interpreted this ABG as follows: (Metabolic alkalosis with increased AA gradient) Physical Exam Const Constitutional Narrative: RASS 0. Good ventilator synchrony on trial. Hirsutism noted General Appearance: patient mechanically ventilated HEENT normocephalic and head/scalp atraumatic Eyes PERRL, EOMs intact bilaterally and conjunctivae normal Eyes Narrative: No scleral icterus noted Neck full ROM Resp Resp Narrative: Could vent synchrony noted Effort and Inspection: Negative for tachypneic, labored or actively coughing Auscultation: diminished lung sounds bilateral (Better air exchange) throughout; Negative for rhonchi or wheezes Cardio regular rhythm, S1 normal heart sound, S2 normal heart sound, no murmurs, no rub and no gallops Rate: bradycardia GI normal to inspection, nondistended, normoactive bowel sounds Extremity General Extremity: edema; Negative for clubbing Skin no rashes or lesions noted Neuro Neuro Narrative: Moves all extremities. Not following commands. Sensation appears intact. Psych Mood & Affect: flat affect Charges/Coding Procedures Hospitalists Procedures: [id number] Critical Care 1st Hr
--- NOTE | 2023-10-02 09:33 | PN_ITS ---
Subjective Subjective Patient seen and examined. She was successfully extubated today. She is now on 8L of oxygen. Unable to do review of systems as she is nonverbal. She has remained hemodynamically stable. Objective Data Objective Data Vital Signs: Vital Signs Temp Pulse Resp BP Pulse Ox O2 Del Method O2 Flow Rate 98.2 F 52 L 20 H 117/75 94 High Flow 8 10/02/23 08:00 10/02/23 09:00 10/02/23 09:00 10/02/23 09:00 10/02/23 09:00 10/02/23 09:00 10/02/23 09:00 FiO2 40 10/02/23 07:00 Oxygen Flow Rate (L/min) 8 Oxygen Delivery Method High Flow Weight: 173 lb 8 oz Body Mass Index (BMI) 38.9 Intake & Output: Intake and Output for Last 24 Hours 09/30/23 10/01/23 10/02/23 23:59 23:59 23:59 Intake Total 3266.66 / 3481.56 3546.35 / 3770.23 1965.95 / 1965.95 Output Total 3525 / 3825 5550 / 6950 2250 / 2250 Balance -258.34 / -343.44 -2003.65 / -3179.77 -284.05 / -284.05 Lab / Micro Data 10/02/23 03:55 10/02/23 03:55 Labs: Laboratory Results - last 24 hr 10/01/23 11:17: POC Glucose 242 H 10/01/23 17:07: POC Glucose 303 H 10/02/23 03:55: WBC 14.6 H, RBC 4.23, Hgb 12.5, Hct 39.1, MCV 92.4, MCH 29.6, MCHC 32.0, RDW Std Deviation 46.3 H, RDW Coeff of [place] 13.6, Plt Count 353, MPV 9.8, Neut % (Auto) Not Reportable, Absolute Neuts (auto) 12.0 H, Absolute Lymphs (auto) 2.04, Total Counted 100, Neutrophils % (Manual) 78 H, Lymphocytes % (Manual) 14 L, Monocytes % (Manual) 4, Metamyelocytes % 3 H, Myelocytes % 1 H, Nucleated RBCs/100 WBC 1, Diff Path Review May foll, Platelet Estimate ADEQUATE, RBC Morphology N CYTIC, Polychromasia RARE, Sodium 139, Potassium 4.7, Chloride 101, Carbon Dioxide 31.0, Anion Gap 7, BUN 31 H, Creatinine 0.84, Estim Creat Clear Calc 120.29, Est GFR (MDRD) Af Amer 98, Est GFR (MDRD) Non-Af 81, BUN/Creatinine Ratio 36.8 H, Glucose 296 H, Calcium 8.1 L Micro: Microbiology 09/25/23 08:00 Blood Culture (Wb) - Left Hand Blood Culture - Final No growth in 5 days. 09/25/23 07:20 Blood Culture (Wb) - Left Hand Blood Culture - Final No growth in 5 days. 09/27/23 07:30 Bronchial Lavage - Right Middle Lobe Gram Stain - Final 09/27/23 07:30 Bronchial Lavage - Right Middle Lobe Respiratory Culture - Final Culture exhibits no growth. 09/28/23 15:20 Mucosa - Nasopharyngeal Respiratory Panel (PCR) - Final Rhinovirus 09/27/23 10:15 Gastric Fluid/Contents Gastric Occult Blood - Final Occult Blood Positive 09/25/23 07:55 Urine, Catheterized Urine Culture - Final Culture exhibits no growth. 09/25/23 08:25 Sputum, Expectorated/Coughed Gram Stain - Final 09/25/23 08:25 Sputum, Expectorated/Coughed Respiratory Culture - Final 09/27/23 04:00 Stool Stool Occult Blood (YVETTE) - Final 09/25/23 07:55 Urine Catheter - Catheter Legionella Antigen - Final 09/25/23 07:55 Urine Catheter - Catheter Streptococcus pneumoniae Antigen (M - Final 09/25/23 07:29 Interface Orders Rapid RSV (DFA) - Final 09/25/23 07:20 Nasal Secretion SARS-CoV-2 & FLU Antigen (Rapid) - Final ABG Data ABG results: ABG 10/02/23 05:54 Specimen Type ART Sample Site L Radial pH 7.52 H Bicarbonate Actual 32.1 H Total CO2 33 Base Excess 9 H O2 Saturation 94 L O2 % 40.0 ABG pCO2 39.3 ABG pO2 63 L Adolfo Test Positive O2 Delivery Device Adult Vent Vent Mode CPAP/PS POC PEEP 5 Physical Exam Const alert and no apparent distress Constitutional Narrative: extubated this morning, flat affect General Appearance: cooperative and well developed Orientation / Consciousness: awake HEENT normocephalic, head/scalp atraumatic and moist oral mucous membranes Eyes PERRL, EOMs intact bilaterally and conjunctivae normal Neck no lymphadenopathy, supple, no JVD, thyroid normal and no carotid bruits General: trachea midline Lymph Lymphatic: no lymphadenopathy noted and no lymphedema noted Resp Resp Narrative: diminished breath sounds bibasally, few crackles. On 8L of oxygen by nasal canula Auscultation: Negative for rales, rhonchi or wheezes Cardio regular rhythm, S1 normal heart sound, S2 normal heart sound, no murmurs, no rub and no gallops Cardio Narrative: mild bradycardia GI normal to inspection, nondistended, normoactive bowel sounds, soft to palpation, non-tender and non-distended Extremity normal capillary refill, no clubbing, cyanosis or edema and no calf tenderness Skin no rashes or lesions noted General Skin Exam: no breakdown Neuro no focal motor deficits Neuro Narrative: nonverbal, awake Motor Exam: general weakness Psych Psych Narrative: Patient is nonverbal Assessment & Plan Assessment/Plan (1) Acute hypoxic respiratory failure: (2) Pneumonia: QUALIFIERS: Pneumonia type: due to unspecified organism Laterality: right Lung location: unspecified part of lung Qualified Code(s): J18.9 - Pneumonia, unspecified organism (3) Sepsis: QUALIFIERS: Sepsis type: sepsis due to unspecified organism Sepsis acute organ dysfunction status: with acute organ dysfunction Severe sepsis acute organ dysfunction type: encephalopathy Severe sepsis shock status: without septic shock Qualified Code(s): A41.9 - Sepsis, unspecified organism; R65.20 - Severe sepsis without septic shock; G93.41 - Metabolic encephalopathy PLAN: Plan #Acute hypoxic respiratory failure due to bilateral community acquired pneumonia * on IV zosyn and vancomycin * now extubated to 8L of oxygen. * on precedex drip; being weaned off * critical care on board. * ID on board. * respiratory panel positive for rhinovirus, but sputum cultures were negative. * she is in cumulative positive balance by 11.1L * on IV lasix 40mg q8 * #Acute upper GI bleed * had coffee ground emesis. on IV pantoprazole * guaiac for gastric aspirate is positive. * to be evaluated by GI for EGD when she is more stable. * #Septic shock due to bilateral pneumonia * On IV vancomycin and Zosyn. ID on board. Blood cultures negative during this admission. Critical care also on board. * wbc is 14.6 today * #Autism with delayed 2 social and cognitive milestones. * Complicates acute care, expected recovery and prognosis. * DVT Prophylaxis; SCDs. Not on anticoagulants due to probable acute upper GI bleed. Total time spent on evaluation and management of patient, reviewing chart and specialist notes, discussion with nursing and ancillary staff as well as documentation: 42 mins Charges/Coding Visit Charges Inpatient E&M: 51712 Subs Hosp L2
[2023-10-02] MEDS: Fluticasone 0.05% 1 SPRAY NASAL.SRY 2 SPRAY NASAL (10:01)
[2023-10-02] MEDS: Insulin Glargine-YFGN 100 UNIT/ML Pen 20 UNIT SC (10:01)
[2023-10-02] MEDS: Pantoprazole Sodium 40 MG in 0.9% Normal Saline (100mL MB+) 100 ML 330 MG IV ×2 (10:02→20:50)
[2023-10-02 10:30] LABS: Bedside Glucose 190 mg/dL (74-106)
[2023-10-02 13:28] LABS: Bedside Glucose 247 mg/dL (74-106)
[2023-10-02 13:31] LABS: Bedside Glucose 166 mg/dL (74-106)
[2023-10-02 13:40] LABS: Pathologist Review Reviewed
--- NOTE | 2023-10-02 14:31 | PCM.PN.ID ---
Physical Exam Narrative Off vent, doing much better, no fever Const no apparent distress Resp Auscultation: diminished lung sounds Cardio regular rate and regular rhythm GI soft to palpation, non-tender and non-distended Skin no rashes or lesions noted ID ID: Route of nutrition/ use of supplements: [] Nutritional Intake: [] IV Site: [] Rivera Catheter: [] Assessment & Plan Assessment/Plan (1) Sepsis: QUALIFIERS: Sepsis type: sepsis due to unspecified organism Sepsis acute organ dysfunction status: with acute organ dysfunction Severe sepsis acute organ dysfunction type: encephalopathy Severe sepsis shock status: without septic shock Qualified Code(s): A41.9 - Sepsis, unspecified organism; R65.20 - Severe sepsis without septic shock; G93.41 - Metabolic encephalopathy (2) Pneumonia: QUALIFIERS: Pneumonia type: due to unspecified organism Laterality: right Lung location: unspecified part of lung Qualified Code(s): J18.9 - Pneumonia, unspecified organism PLAN: Fever resolved. BP improved, remains off vent. Cxs neg so far. PCR (+) rhinovirus. Will stop vanc today. Plan on stopping zosyn soon. Will follow (3) Acute hypoxic respiratory failure:
[2023-10-02 18:08] LABS: Bedside Glucose 187 mg/dL (74-106)
[2023-10-02 23:41] LABS: Bedside Glucose 148 mg/dL (74-106)
[2023-10-03] VITALS (21 sets, daily range): BP systolic 92–113; BP diastolic 59–82; PULSE 73–96; RESP 16–94; TEMP 35.9–37.1; O2SAT 93–99; BMI 38.7
[2023-10-03] MEDS: Piperacil/Tazobactam 3.375 GM in 0.9% Normal Saline (50mL MB+) 50 ML IV ×3 (05:35→20:46)
[2023-10-03] MEDS: Furosemide 40 MG/4 ML Vial IV ×3 (05:37→20:29)
[2023-10-03] MEDS: Insulin Lispro 100 UNIT/ML INSULN.PEN SC ×3 (05:37→18:02)
[2023-10-03 05:58] LABS: Absolute Lymphocyte Count 1.96 X10^3/uL (0.83-4.51); Absolute Neutrophil Count 20.8 X10^3/uL (2.0-7.7); Basophil# 0.02 X10^3/uL; Basophil% 0.1 % (0-1); Hematocrit 43.1 % (37-47); Hemoglobin 13.9 g/dL (12.0-15.0); Lymphocyte # 1.96 X10^3/ul (0.83-4.51); Lymphocyte % 7.8 % (19-41); Mean Corp Hgb Conc 32.3 g/dL (32-36); Mean Corpuscular Hgb 29.4 pg (27.0-32.0); Mean Corpuscular Volume 91.3 fL (81-99); Mean Platelet Vol. 9.3 fl (6.2-12.0); Monocyte% 4.4 % (0-10); NRBC Flagged by Analyzer 0.2 % (0-5); Neutrophil # 20.82 X10^3/uL (2.7-7.7); POSITIVE DIFFERENTIAL YES; POSITIVE MORPHOLOGY YES; Platelet Count 523 K/mm3 (150-450); RBC Distribution Width CV 13.7 % (11.6-14.6); RBC Distribution Width SD 45.7 fl (35.1-43.9); Red Blood Count 4.72 M/mm3 (4.2-5.4); White Blood Count 25.1 K/mm3 (4.4-11.0)
[2023-10-03 06:00] LABS: Bedside Glucose 165 mg/dL (74-106)
[2023-10-03 06:14] LABS: Anion Gap 9 (5-15); BUN 31 mg/dL (7-18); BUN/Creat Ratio 36.3 RATIO (10-20); Calcium,Total 8.6 mg/dL (8.5-10.1); Chloride 100 mmol/L (98-107); Creatinine, Serum 0.85 mg/dL (0.55-1.02); EST Glomerular Filtration Rate 80 mL/min (>60); Est Glom Filt Rate - Afr Amer 97 mL/min (>60); Estimated Creatinine Clearance 114.48 ml/min; Glucose 169 mg/dL (74-106); Potassium 4.4 mmol/L (3.5-5.1); Sodium Level 140 mmol/L (136-145)
[2023-10-03 06:24] LABS: Differential Indicated SCAN CRITERIA MET
[2023-10-03 07:12] LABS: Differential Comment SCANNED
[2023-10-03] MEDS: Albuterol 2.5 MG/3 ML VIAL.NEB. INHALATION ×3 (07:13→18:58)
--- NOTE | 2023-10-03 08:27 | CPS ---
decreased NC to 4L
--- NOTE | 2023-10-03 09:27 | CASEMGMT ---
Social Work SW attended ICU rounds and met with pt, pt's mother and father after rounds. SW introduced self and role of SW. Topic of discharge plan was broached and at this time pt's parents are non committal to a decision on d/c plan. Discussed staying in [facility] for short term rehab vs returning to [place] at time of discharge from the hospital. Pt's parents would like to see medical progress prior to discussing discharge plans. SW will continue to follow for discharge planning. BEBA White
--- NOTE | 2023-10-03 09:47 | PN_ITS ---
Subjective Subjective Patient seen and examined. She was alert but nonverbal. Per her nurse, patient was unable to sleep much during the night. Review of systems is otherwise negative. She is down to 6L,a nd in negative balance by 6.3L. Objective Data Objective Data Vital Signs: Vital Signs Temp Pulse Resp BP Pulse Ox O2 Del Method O2 Flow Rate 98.2 F 87 16 100/67 99 Nasal Cannula 6 10/03/23 07:00 10/03/23 07:15 10/03/23 07:15 10/03/23 07:00 10/03/23 07:15 10/03/23 07:15 10/03/23 07:15 FiO2 40 10/02/23 07:00 Oxygen Flow Rate (L/min) 6 Oxygen Delivery Method Nasal Cannula Weight: 173 lb 1.006 oz Body Mass Index (BMI) 38.7 Intake & Output: Intake and Output for Last 24 Hours 10/01/23 10/02/23 10/03/23 23:59 23:59 23:59 Intake Total 3546.35 / 3770.23 2287.03 / 2287.03 50 / 50 Output Total 5550 / 6950 5475 / 6675 2150 / 2150 Balance -2003.65 / -3179.77 -3187.97 / -4387.97 -2100 / -2100 Lab / Micro Data 10/03/23 05:35 10/03/23 05:35 Labs: Laboratory Results - last 24 hr 10/01/23 03:47: Diff Path Review Reviewed 10/01/23 23:11: POC Glucose 247 H 10/02/23 09:59: POC Glucose 190 H 10/02/23 13:14: POC Glucose 166 H 10/02/23 17:32: POC Glucose 187 H 10/02/23 23:20: POC Glucose 148 H 10/03/23 05:27: POC Glucose 165 H 10/03/23 05:35: WBC 25.1 H, RBC 4.72, Hgb 13.9, Hct 43.1, MCV 91.3, MCH 29.4, MCHC 32.3, RDW Std Deviation 45.7 H, RDW Coeff of [place] 13.7, Plt Count 523 H, MPV 9.3, Immature Gran % (Auto) 4.700 H, Neut % (Auto) 83.0 H, Lymph % (Auto) 7.8 L, [place] % (Auto) 4.4, Eos % (Auto) 0.0, Baso % (Auto) 0.1, Absolute Neuts (auto) 20.8 H, Absolute Lymphs (auto) 1.96, Nucleated RBC % 0.2, Differential Comment SCANNED, Sodium 140, Potassium 4.4, Chloride 100, Carbon Dioxide 31.0, Anion Gap 9, BUN 31 H, Creatinine 0.85, Estim Creat Clear Calc 114.48, Est GFR (MDRD) Af Amer 97, Est GFR (MDRD) Non-Af 80, BUN/Creatinine Ratio 36.3 H, Glucose 169 H, Calcium 8.6 Micro: Microbiology 09/25/23 08:00 Blood Culture (Wb) - Left Hand Blood Culture - Final No growth in 5 days. 09/25/23 07:20 Blood Culture (Wb) - Left Hand Blood Culture - Final No growth in 5 days. 09/27/23 07:30 Bronchial Lavage - Right Middle Lobe Gram Stain - Final 09/27/23 07:30 Bronchial Lavage - Right Middle Lobe Respiratory Culture - Final Culture exhibits no growth. 09/28/23 15:20 Mucosa - Nasopharyngeal Respiratory Panel (PCR) - Final Rhinovirus 09/27/23 10:15 Gastric Fluid/Contents Gastric Occult Blood - Final Occult Blood Positive 09/25/23 07:55 Urine, Catheterized Urine Culture - Final Culture exhibits no growth. 09/25/23 08:25 Sputum, Expectorated/Coughed Gram Stain - Final 09/25/23 08:25 Sputum, Expectorated/Coughed Respiratory Culture - Final 09/27/23 04:00 Stool Stool Occult Blood (YVETTE) - Final 09/25/23 07:55 Urine Catheter - Catheter Legionella Antigen - Final 09/25/23 07:55 Urine Catheter - Catheter Streptococcus pneumoniae Antigen (M - Final 09/25/23 07:29 Interface Orders Rapid RSV (DFA) - Final 09/25/23 07:20 Nasal Secretion SARS-CoV-2 & FLU Antigen (Rapid) - Final Physical Exam Const alert and no apparent distress Constitutional Narrative: flat affect General Appearance: cooperative and well developed Orientation / Consciousness: awake HEENT normocephalic, head/scalp atraumatic and moist oral mucous membranes HEENT Narrative: non verbal Eyes PERRL, EOMs intact bilaterally and conjunctivae normal Neck no lymphadenopathy, supple, no JVD, thyroid normal and no carotid bruits General: trachea midline Lymph Lymphatic: no lymphadenopathy noted and no lymphedema noted Resp Resp Narrative: diminished breath sounds bibasally, few crackles. On 6 L of oxygen by nasal canula Auscultation: Negative for rales, rhonchi or wheezes Cardio regular rate, regular rhythm, S1 normal heart sound, S2 normal heart sound, no murmurs, no rub and no gallops GI normal to inspection, nondistended, normoactive bowel sounds, soft to palpation, non-tender and non-distended Extremity normal capillary refill, no clubbing, cyanosis or edema and no calf tenderness Skin no rashes or lesions noted General Skin Exam: no breakdown Neuro CN's II-XII intact bilaterally Neuro Narrative: nonverbal, awake Sensorium / Orientation: awake and alert Motor Exam: general weakness Psych Psych Narrative: Patient is nonverbal Assessment & Plan Assessment/Plan (1) Acute hypoxic respiratory failure: (2) Pneumonia: QUALIFIERS: Pneumonia type: due to unspecified organism Laterality: right Lung location: unspecified part of lung Qualified Code(s): J18.9 - Pneumonia, unspecified organism (3) Sepsis: QUALIFIERS: Sepsis type: sepsis due to unspecified organism Seps is acute organ dysfunction status: with acute organ dysfunction Severe sepsis acute organ dysfunction type: encephalopathy Severe sepsis shock status: without septic shock Qualified Code(s): A41.9 - Sepsis, unspecified organism; R65.20 - Severe sepsis without septic shock; G93.41 - Metabolic encephalopathy PLAN: Plan #Acute hypoxic respiratory failure due to bilateral community acquired pneumonia * on IV zosyn and vancomycin * now extubated and on 4L of oxygen. * on precedex drip; being weaned off * critical care on board. * ID on board. * respiratory panel positive for rhinovirus, but sputum cultures were negative. * she is in cumulative positive balance by 6L * on IV lasix 40mg q8 * #Acute upper GI bleed * had coffee ground emesis. on IV pantoprazole * guaiac for gastric aspirate is positive. * Hb is 13.9. May have been due to stress ulcer. Hb is stable. * can follow up with GI on outpatient basis * #Septic shock due to bilateral pneumonia * On IV vancomycin and Zosyn. ID on board. Blood cultures negative during this admission. Critical care also on board. * wbc is up to 25.1 today * #Thrombocytosis: platelets are 523. Likely due to acute infection. Will monitor for now. #Autism with delayed 2 social and cognitive milestones. * Complicates acute care, expected recovery and prognosis. * DVT Prophylaxis; SCDs. Not on anticoagulants due to probable acute upper GI bleed. Total time spent on evaluation and management of patient, reviewing chart and specialist notes, discussion with nursing and ancillary staff as well as documentation: 42 mins Charges/Coding Visit Charges Inpatient E&M: 28624 Subs Hosp L2
--- NOTE | 2023-10-03 10:38 | PCM.PN.INT ---
Assessment & Plan Assessment/Plan (1) Sepsis: QUALIFIERS: Sepsis acute organ dysfunction status: with acute organ dysfunction Sepsis type: sepsis due to unspecified organism Severe sepsis acute organ dysfunction type: encephalopathy Severe sepsis shock status: without septic shock Qualified Code(s): A41.9 - Sepsis, unspecified organism; R65.20 - Severe sepsis without septic shock; G93.41 - Metabolic encephalopathy (2) Pneumonia: QUALIFIERS: Laterality: right Lung location: unspecified part of lung Pneumonia type: due to unspecified organism Qualified Code(s): J18.9 - Pneumonia, unspecified organism (3) Acute hypoxic respiratory failure: (4) Autism: PLAN: Plan RECOMMENDATIONS: 1. Continue to wean supplemental oxygen to maintain saturations at or above 90%. 2. Antimicrobials per ID recommendations. 3. Continue aggressive bronchopulmonary hygiene. 4. Continue steroids for now. 5. Gentle diuresis as tolerated by hemodynamics and renal function. 6. The patient is medically stable for transfer out of the intensive care unit. IMPRESSIONS: 1. Septic shock secondary to bilateral pneumonia/rhinovirus URI The patient is improving clinically with supportive measures including supplemental oxygen and antimicrobials. Continue to wean oxygen to maintain saturations at or above 90%. Antimicrobials will be continued per ID recommendations. Continue gentle diuresis as tolerated by hemodynamics and renal function. The patient remains hemodynamically stable. 2. Acute hypoxic respiratory failure secondary to bilateral pneumonia The patient has extensive consolidation on the right and some infiltrates on the left. Bronchoscopy following intubation did not show any significant central mucous plugging. The patient is doing well from a respiratory perspective following extubation. She does have a reported history of asthma. Therefore, we will plan to continue bronchodilators and steroids as ordered. The patient continues to do well from a respiratory perspective, she can be transition to prednisone beginning tomorrow. 3. Autism/morbid obesity/allergies/GERD/history of MDRO Complicates care, management, recovery and prognosis. The patient's mother was very clear that she is a full code and would want everything done including intubation and CPR. This note was generated with [employer] dictation software. It may contain incorrect words, spelling, and punctuation that were not noted in checking the note before signing. Subjective Subjective The patient was seen and examined at the bedside this morning. Events from the last 24 hours have been reviewed. The patient is currently afebrile, hemodynamically stable and maintaining appropriate oxygen saturations on 4 L/min via nasal cannula. The patient's family was present at the bedside. They reported that the patient has been unable to utilize her incentive spirometer, but is still actively coughing and expectorating sputum. The patient is documented to be overall net +6.3 L for the hospitalization. Objective Data Objective Data The patient's most recent lab work, culture data and imaging studies have all been personally reviewed. Surface echocardiogram demonstrated an ejection fraction of 55 to 60%. Respiratory viral panel was positive for rhinovirus on September 28. Vital Signs: Vital Signs Temp Pulse Resp BP Pulse Ox O2 Del Method O2 Flow Rate 98.5 F 88 23 H 105/61 96 Nasal Cannula 4 10/03/23 08:00 10/03/23 10:00 10/03/23 10:00 10/03/23 10:00 10/03/23 10:00 10/03/23 10:00 10/03/23 10:00 FiO2 40 10/02/23 07:00 Oxygen Flow Rate (L/min) 4 Oxygen Delivery Method Nasal Cannula Weight: 173 lb 1.006 oz Body Mass Index (BMI) 38.7 Intake & Output: Intake and Output for Last 24 Hours 10/01/23 10/02/23 10/03/23 23:59 23:59 23:59 Intake Total 3546.35 / 3770.23 2287.03 / 2287.03 100 / 100 Output Total 5550 / 6950 5475 / 6675 2150 / 2150 Balance -2003.65 / -3179.77 -3187.97 / -4387.97 -0 / -2049 Lab / Micro Data Attestation: I reviewed the patient's lab results. 10/03/23 05:35 10/03/23 05:35 Labs: Laboratory Results - last 24 hr 10/01/23 03:47: Diff Path Review Reviewed 10/01/23 23:11: POC Glucose 247 H 10/02/23 13:14: POC Glucose 166 H 10/02/23 17:32: POC Glucose 187 H 10/02/23 23:20: POC Glucose 148 H 10/03/23 05:27: POC Glucose 165 H 10/03/23 05:35: WBC 25.1 H, RBC 4.72, Hgb 13.9, Hct 43.1, MCV 91.3, MCH 29.4, MCHC 32.3, RDW Std Deviation 45.7 H, RDW Coeff of [place] 13.7, Plt Count 523 H, MPV 9.3, Immature Gran % (Auto) 4.700 H, Neut % (Auto) 83.0 H, Lymph % (Auto) 7.8 L, [place] % (Auto) 4.4, Eos % (Auto) 0.0, Baso % (Auto) 0.1, Absolute Neuts (auto) 20.8 H, Absolute Lymphs (auto) 1.96, Nucleated RBC % 0.2, Differential Comment SCANNED, Sodium 140, Potassium 4.4, Chloride 100, Carbon Dioxide 31.0, Anion Gap 9, BUN 31 H, Creatinine 0.85, Estim Creat Clear Calc 114.48, Est GFR (MDRD) Af Amer 97, Est GFR (MDRD) Non-Af 80, BUN/Creatinine Ratio 36.3 H, Glucose 169 H, Calcium 8.6 Micro: Microbiology 09/25/23 08:00 Blood Culture (Wb) - Left Hand Blood Culture - Final No growth in 5 days. 09/25/23 07:20 Blood Culture (Wb) - Left Hand Blood Culture - Final No growth in 5 days. 09/27/23 07:30 Bronchial Lavage - Right Middle Lobe Gram Stain - Final 09/27/23 07:30 Bronchial Lavage - Right Middle Lobe Respiratory Culture - Final Culture exhibits no growth. 09/28/23 15:20 Mucosa - Nasopharyngeal Respiratory Panel (PCR) - Final Rhinovirus 09/27/23 10:15 Gastric Fluid/Contents Gastric Occult Blood - Final Occult Blood Positive 09/25/23 07:55 Urine, Catheterized Urine Culture - Final Culture exhibits no growth. 09/25/23 08:25 Sputum, Expectorated/Coughed Gram Stain - Final 09/25/23 08:25 Sputum, Expectorated/Coughed Respiratory Culture - Final 09/27/23 04:00 Stool Stool Occult Blood (YVETTE) - Final 09/25/23 07:55 Urine Catheter - Catheter Legionella Antigen - Final 09/25/23 07:55 Urine Catheter - Catheter Streptococcus pneumoniae Antigen (M - Final 09/25/23 07:29 Interface Orders Rapid RSV (DFA) - Final 09/25/23 07:20 Nasal Secretion SARS-CoV-2 & FLU Antigen (Rapid) - Final Physical Exam Const alert and no apparent distress Constitutional Narrative: Family is present at the bedside. Hirsutism noted. HEENT normocephalic and head/scalp atraumatic Eyes PERRL and EOMs intact bilaterally Neck supple General: trachea midline Chest inspection of chest normal Resp normal respiratory effort Auscultation: diminished lung sounds Cardio regular rate and regular rhythm GI normal to inspection, nondistended, normoactive bowel sounds Extremity no clubbing, cyanosis or edema Skin no rashes or lesions noted Neuro Neuro Narrative: Nonverbal. No focal deficits. Psych Mood & Affect: flat affect Charges/Coding Visit Charges Inpatient E&M: 69848 Subs Hosp L2
[2023-10-03] MEDS: Insulin Glargine-YFGN 100 UNIT/ML Pen 20 UNIT SC (10:55)
[2023-10-03] MEDS: Fluticasone 0.05% 1 SPRAY NASAL.SRY 2 SPRAY NASAL (10:55)
[2023-10-03] MEDS: Pantoprazole Sodium 40 MG in 0.9% Normal Saline (100mL MB+) 100 ML 330 MG IV ×2 (11:03→20:25)
[2023-10-03 11:49] LABS: Bedside Glucose 165 mg/dL (74-106)
--- NOTE | 2023-10-03 12:45 | PN.ID_ITS ---
Physical Exam Narrative Improving per her mother. Still some cough and sputum. No fever. Const no apparent distress Resp Auscultation: diminished lung sounds Cardio regular rate and regular rhythm GI soft to palpation, non-tender and non-distended Skin no rashes or lesions noted ID ID: Route of nutrition/ use of supplements: [] Nutritional Intake: [] IV Site: [] Rivera Catheter: [] Assessment & Plan Assessment/Plan (1) Sepsis: QUALIFIERS: Sepsis type: sepsis due to unspecified organism Sep sis acute organ dysfunction status: with acute organ dysfunction Severe sepsis acute organ dysfunction type: encephalopathy Severe sepsis shock status: without septic shock Qualified Code(s): A41.9 - Sepsis, unspecified organism; R65.20 - Severe sepsis without septic shock; G93.41 - Metabolic encephalopathy (2) Pneumonia: QUALIFIERS: Pneumonia type: due to unspecified organism Laterality: right Lung location: unspecified part of lung Qualified Code(s): J18.9 - Pneumonia, unspecified organism PLAN: Fever resolved. BP improved, remains off vent. Cxs neg so far. PCR (+) rhinovirus. Remains on zosyn, steroids. Wbc up today. Will follow (3) Acute hypoxic respiratory failure:
[2023-10-03 13:18] LABS: Pathologist Review Reviewed
[2023-10-03] MEDS: Miconazole Nitrate 43 GM Bottle 1 APPLIC TOPICAL ×2 (14:28→20:33)
[2023-10-03] MEDS: Menthol/Lanolin/Calamine/Znox 113 GM Tube 1 APPLIC TOPICAL ×2 (14:28→20:33)
[2023-10-03] MEDS: CARBOXYMETHYLCELLULOSE SODIUM 1 DRP DROPS OPHTHALMIC (14:33)
[2023-10-03 18:23] LABS: Bedside Glucose 163 mg/dL (74-106)
[2023-10-03] MEDS: 0.9% Saline Lock 10 ML Syringe IV (20:34)
[2023-10-04] VITALS (7 sets, daily range): BP systolic 108–125; BP diastolic 68–77; PULSE 78–98; RESP 16–26; TEMP 35.9–36.8; O2SAT 93–97; BMI 34.7
[2023-10-04] MEDS: Insulin Lispro 100 UNIT/ML INSULN.PEN SC ×3 (00:20→16:36)
[2023-10-04 00:36] LABS: Bedside Glucose 191 mg/dL (74-106)
[2023-10-04] MEDS: Menthol/Lanolin/Calamine/Znox 113 GM Tube 1 APPLIC TOPICAL ×3 (05:28→20:48)
[2023-10-04] MEDS: Miconazole Nitrate 43 GM Bottle 1 APPLIC TOPICAL ×3 (05:28→20:47)
[2023-10-04] MEDS: Piperacil/Tazobactam 3.375 GM in 0.9% Normal Saline (50mL MB+) 50 ML IV ×2 (05:29→14:19)
[2023-10-04] MEDS: Furosemide 40 MG/4 ML Vial IV (05:29)
[2023-10-04] MEDS: 0.9% Saline Lock 10 ML Syringe IV (05:30)
[2023-10-04 05:46] LABS: Absolute Lymphocyte Count 1.74 X10^3/uL (0.83-4.51); Absolute Neutrophil Count 24.5 X10^3/uL (2.0-7.7); Basophil# 0.14 X10^3/uL; Basophil% 0.5 % (0-1); Hematocrit 46.4 % (37-47); Lymphocyte # 1.74 X10^3/ul (0.83-4.51); Lymphocyte % 6.2 % (19-41); Mean Corp Hgb Conc 32.3 g/dL (32-36); Mean Corpuscular Hgb 29.5 pg (27.0-32.0); Mean Corpuscular Volume 91.3 fL (81-99); Mean Platelet Vol. 8.9 fl (6.2-12.0); Monocyte# 0.94 X10^3/uL; Monocyte% 3.3 % (0-10); NRBC Flagged by Analyzer 0.1 % (0-5); Neutrophil # 24.52 X10^3/uL (2.7-7.7); Neutrophil % 86.9 % (47-70); POSITIVE DIFFERENTIAL YES; Platelet Count 588 K/mm3 (150-450); RBC Distribution Width CV 13.6 % (11.6-14.6); RBC Distribution Width SD 45.5 fl (35.1-43.9); Red Blood Count 5.08 M/mm3 (4.2-5.4); White Blood Count 28.2 K/mm3 (4.4-11.0)
[2023-10-04 05:48] LABS: Differential Indicated SCAN CRITERIA MET
[2023-10-04 06:00] LABS: Bedside Glucose 153 mg/dL (74-106)
[2023-10-04 06:03] LABS: Anion Gap 4 (5-15); BUN 40 mg/dL (7-18); BUN/Creat Ratio 43.9 RATIO (10-20); Calcium,Total 9.5 mg/dL (8.5-10.1); Chloride 99 mmol/L (98-107); Creatinine, Serum 0.91 mg/dL (0.55-1.02); EST Glomerular Filtration Rate 74 mL/min (>60); Est Glom Filt Rate - Afr Amer 90 mL/min (>60); Estimated Creatinine Clearance 95.46 ml/min; Glucose 165 mg/dL (74-106); Potassium 4.2 mmol/L (3.5-5.1); Sodium Level 138 mmol/L (136-145)
[2023-10-04 06:07] LABS: Differential Comment SCANNED
[2023-10-04] MEDS: Albuterol 2.5 MG/3 ML VIAL.NEB. INHALATION ×2 (07:30→19:50)
[2023-10-04] MEDS: CARBOXYMETHYLCELLULOSE SODIUM 1 DRP DROPS OPHTHALMIC (08:32)
[2023-10-04] MEDS: Fluticasone 0.05% 1 SPRAY NASAL.SRY 2 SPRAY NASAL (08:33)
[2023-10-04] MEDS: Insulin Glargine-YFGN 100 UNIT/ML Pen 20 UNIT SC (08:38)
--- NOTE | 2023-10-04 09:25 | PN.CC_ITS ---
Assessment & Plan Assessment/Plan (1) Sepsis: QUALIFIERS: Sepsis type: sepsis due to unspecified organism Sepsis acute organ dysfunction status: with acute organ dysfunction Severe sepsis acute organ dysfunction type: encephalopathy Severe sepsis shock status: without septic shock Qualified Code(s): A41.9 - Sepsis, unspecified organism; R65.20 - Severe sepsis without septic shock; G93.41 - Metabolic encephalopathy (2) Pneumonia: QUALIFIERS: Pneumonia type: due to unspecified organism Laterality: right Lung location: unspecified part of lung Qualified Code(s): J18.9 - Pneumonia, unspecified organism (3) Acute hypoxic respiratory failure: (4) Autism: PLAN: Plan RECOMMENDATIONS: 1. Continue to wean supplemental oxygen to maintain saturations at or above 90%. 2. Antimicrobials per ID recommendations. 3. Continue aggressive bronchopulmonary hygiene. 4. Decrease steroids to once daily. Once passes swallow evaluation, transition to prednisone 40 mg daily x 5 days. 5. Decrease diuresis frequency to once daily, given elevated bicarbonate. IMPRESSIONS: 1. Septic shock secondary to bilateral pneumonia/rhinovirus URI The patient is improving clinically with supportive measures including supplemental oxygen and antimicrobials. Continue to wean oxygen to maintain saturations at or above 90%. Antimicrobials will be continued per ID recommendations. Continue gentle diuresis as tolerated by hemodynamics and renal function. The patient remains hemodynamically stable. 2. Acute hypoxic respiratory failure secondary to bilateral pneumonia The patient has extensive consolidation on the right and some infiltrates on the left. Bronchoscopy following intubation did not show any significant central mucous plugging. The patient is doing well from a respiratory perspective follo wing extubation. She does have a reported history of asthma. Therefore, we will plan to continue bronchodilators and steroids as ordered. If the patient is able to pass a swallow evaluation, she can be transitioned to prednisone 40 mg daily, with plans to complete a 5-day burst. 3. Autism/morbid obesity/allergies/GERD/history of MDRO Complicates care, management, recovery and prognosis. The patient's mother was very clear that she is a full code and would want everything done including intubation and CPR. This note was generated with [employer] dictation software. It may contain incorrect words, spelling, and punctuation that were not noted in checking the note before signing. Subjective Subjective The patient was seen and examined at the bedside this morning. Events from the last 24 hours have been reviewed. The patient is currently afebrile, hemodynamically stable and maintaining appropriate oxygen saturations on 4 L/min via nasal cannula. The patient is documented to be overall net +6.3 L for the hospitalization. Objective Data Objective Data The patient's most recent lab work, culture data and imaging studies have all been personally reviewed. Surface echocardiogram demonstrated an ejection fraction of 55 to 60%. Respiratory viral panel was positive for rhinovirus on September 28. Vital Signs: Vital Signs Temp Pulse Resp BP Pulse Ox O2 Del Method O2 Flow Rate 96.6 F L 78 20 H 117/71 94 Nasal Cannula 4 10/04/23 03:45 10/04/23 03:45 10/04/23 03:45 10/04/23 03:45 10/04/23 03:45 10/04/23 03:45 10/04/23 03:45 FiO2 40 10/02/23 07:00 Oxygen Flow Rate (L/min) 4 Oxygen Delivery Method Nasal Cannula Weight: 154 lb 8 oz Body Mass Index (BMI) 34.7 Intake & Output: Intake and Output for Last 24 Hours 10/02/23 10/03/23 10/04/23 23:59 23:59 23:59 Intake Total 2287.03 / 2287.03 370 / 370 50 / 50 Output Total 5475 / 6675 2550 / 2550 Balance -3187.97 / -4387.97 -2180 / -2180 50 / 50 Lab / Micro Data Attestation: I reviewed the patient's lab results. 10/04/23 05:42 10/04/23 05:42 Labs: Laboratory Results - last 24 hr 10/02/23 03:55: Diff Path Review Reviewed 10/03/23 10:51: POC Glucose 165 H 10/03/23 18:00: POC Glucose 163 H 10/04/23 00:18: POC Glucose 191 H 10/04/23 05:27: POC Glucose 153 H 10/04/23 05:42: WBC 28.2 H, RBC 5.08, Hgb 15.0, Hct 46.4, MCV 91.3, MCH 29.5, MCHC 32.3, RDW Std Deviation 45.5 H, RDW Coeff of [place] 13.6, Plt Count 588 H, MPV 8.9, Immature Gran % (Auto) 3.100 H, Neut % (Auto) 86.9 H, Lymph % (Auto) 6.2 L, [place] % (Auto) 3.3, Eos % (Auto) 0.0, Baso % (Auto) 0.5, Absolute Neuts (auto) 24.5 H, Absolute Lymphs (auto) 1.74, Nucleated RBC % 0.1, Differential Comment SCANNED, Sodium 138, Potassium 4.2, Chloride 99, Carbon Dioxide 35.0 H, Anion Gap 4 L, BUN 40 H, Creatinine 0.91, Estim Creat Clear Calc 95.46, Est GFR (MDRD) Af Amer 90, Est GFR (MDRD) Non-Af 74, BUN/Creatinine Ratio 43.9 H, Glucose 165 H , Calcium 9.5 Micro: Microbiology 09/25/23 08:00 Blood Culture (Wb) - Left Hand Blood Culture - Final No growth in 5 days. 09/25/23 07:20 Blood Culture (Wb) - Left Hand Blood Culture - Final No growth in 5 days. 09/27/23 07:30 Bronchial Lavage - Right Middle Lobe Gram Stain - Final 09/27/23 07:30 Bronchial Lavage - Right Middle Lobe Respiratory Culture - Final Culture exhibits no growth. 09/28/23 15:20 Mucosa - Nasopharyngeal Respiratory Panel (PCR) - Final Rhinovirus 09/27/23 10:15 Gastric Fluid/Contents Gastric Occult Blood - Final Occult Blood Positive 09/25/23 07:55 Urine, Catheterized Urine Culture - Final Culture exhibits no growth. 09/25/23 08:25 Sputum, Expectorated/Coughed Gram Stain - Final 09/25/23 08:25 Sputum, Expectorated/Coughed Respiratory Culture - Final 09/27/23 04:00 Stool Stool Occult Blood (YVETTE) - Final 09/25/23 07:55 Urine Catheter - Catheter Legionella Antigen - Final 09/25/23 07:55 Urine Catheter - Catheter Streptococcus pneumoniae Antigen (M - Final 09/25/23 07:29 Interface Orders Rapid RSV (DFA) - Final 09/25/23 07:20 Nasal Secretion SARS-CoV-2 & FLU Antigen (Rapid) - Final Physical Exam Const alert and no apparent distress Constitutional Narrative: Hirsutism noted. HEENT normocephalic and head/scalp atraumatic Eyes PERRL and EOMs intact bilaterally Neck supple General: trachea midline Chest inspection of chest normal Resp normal respiratory effort Auscultation: diminished lung sounds Cardio regular rate and regular rhythm GI normal to inspection, nondistended, normoactive bowel sounds Extremity no clubbing, cyanosis or edema Skin no rashes or lesions noted Neuro Neuro Narrative: Nonverbal. No focal deficits. Psych Mood & Affect: flat affect Charges/Coding Visit Charges Inpatient E&M: 32148 Subs Hosp L2
[2023-10-04] MEDS: Pantoprazole Sodium 40 MG in 0.9% Normal Saline (100mL MB+) 100 ML 330 MG IV ×2 (10:13→20:48)
[2023-10-04] MEDS: 0.9% Normal Saline (250mL Bag) 250 ML 15 ML IV (10:17)
[2023-10-04 12:01] LABS: Bedside Glucose 153 mg/dL (74-106)
--- NOTE | 2023-10-04 12:10 | PN_ITS ---
Subjective Subjective Patient seen and examined. HEr mother was by her bedside. No active issues. Review of systems is otherwise negative. She is for modified barium swallow today Objective Data Objective Data Vital Signs: Vital Signs Temp Pulse Resp BP Pulse Ox O2 Del Method O2 Flow Rate 97.0 F L 91 21 H 108/68 95 Nasal Cannula 4 10/04/23 08:30 10/04/23 08:30 10/04/23 08:30 10/04/23 08:30 10/04/23 08:30 10/04/23 08:30 10/04/23 08:30 FiO2 40 10/02/23 07:00 Oxygen Flow Rate (L/min) 4 Oxygen Delivery Method Nasal Cannula Weight: 154 lb 8 oz Body Mass Index (BMI) 34.7 Intake & Output: Intake and Output for Last 24 Hours 10/02/23 10/03/23 10/04/23 23:59 23:59 23:59 Intake Total 2287.03 / 2287.03 370 / 370 210 / 210 Output Total 5475 / 6675 2550 / 2550 Balance -3187.97 / -4387.97 -2180 / -2180 210 / 210 Lab / Micro Data 10/04/23 05:42 10/04/23 05:42 Labs: Laboratory Results - last 24 hr 10/02/23 03:55: Diff Path Review Reviewed 10/03/23 18:00: POC Glucose 163 H 10/04/23 00:18: POC Glucose 191 H 10/04/23 05:27: POC Glucose 153 H 10/04/23 05:42: WBC 28.2 H, RBC 5.08, Hgb 15.0, Hct 46.4, MCV 91.3, MCH 29.5, MCHC 32.3, RDW Std Deviation 45.5 H, RDW Coeff of [place] 13.6, Plt Count 588 H, MPV 8.9, Immature Gran % (Auto) 3.100 H, Neut % (Auto) 86.9 H, Lymph % (Auto) 6.2 L, [place] % (Auto) 3.3, Eos % (Auto) 0.0, Baso % (Auto) 0.5, Absolute Neuts (auto) 24.5 H, Absolute Lymphs (auto) 1.74, Nucleated RBC % 0.1, Differential Comment SCANNED, Sodium 138, Potassium 4.2, Chloride 99, Carbon Dioxide 35.0 H, Anion Gap 4 L, BUN 40 H, Creatinine 0.91, Estim Creat Clear Calc 95.46, Est GFR (MDRD) Af Amer 90, Est GFR (MDRD) Non-Af 74, BUN/Creatinine Ratio 43.9 H, Glucose 165 H , Calcium 9.5 10/04/23 11:42: POC Glucose 153 H Micro: Microbiology 09/25/23 08:00 Blood Culture (Wb) - Left Hand Blood Culture - Final No growth in 5 days. 09/25/23 07:20 Blood Culture (Wb) - Left Hand Blood Culture - Final No growth in 5 days. 09/27/23 07:30 Bronchial Lavage - Right Middle Lobe Gram Stain - Final 09/27/23 07:30 Bronchial Lavage - Right Middle Lobe Respiratory Culture - Final Culture exhibits no growth. 09/28/23 15:20 Mucosa - Nasopharyngeal Respiratory Panel (PCR) - Final Rhinovirus 09/27/23 10:15 Gastric Fluid/Contents Gastric Occult Blood - Final Occult Blood Positive 09/25/23 07:55 Urine, Catheterized Urine Culture - Final Culture exhibits no growth. 09/25/23 08:25 Sputum, Expectorated/Coughed Gram Stain - Final 09/25/23 08:25 Sputum, Expectorated/Coughed Respiratory Culture - Final 09/27/23 04:00 Stool Stool Occult Blood (YVETTE) - Final 09/25/23 07:55 Urine Catheter - Catheter Legionella Antigen - Final 09/25/23 07:55 Urine Catheter - Catheter Streptococcus pneumoniae Antigen (M - Final 09/25/23 07:29 Interface Orders Rapid RSV (DFA) - Final 09/25/23 07:20 Nasal Secretion SARS-CoV-2 & FLU Antigen (Rapid) - Final Physical Exam Const alert and no apparent distress Constitutional Narrative: flat affect General Appearance: cooperative and well developed Orientation / Consciousness: awake HEENT normocephalic, head/scalp atraumatic and moist oral mucous membranes Eyes PERRL, EOMs intact bilaterally and conjunctivae normal Neck no lymphadenopathy, supple, no JVD, thyroid normal and no carotid bruits General: trachea midline Lymph Lymphatic: no lymphadenopathy noted and no lymphedema noted Resp Resp Narrative: diminished breath sounds bibasally, few crackles. On 4 L of oxygen by nasal canula Auscultation: Negative for rales, rhonchi or wheezes Cardio regular rate, regular rhythm, S1 normal heart sound, S2 normal heart sound, no murmurs, no rub and no gallops GI normal to inspection, nondistended, normoactive bowel sounds, soft to palpation, non-tender and non-distended Extremity normal capillary refill, no clubbing, cyanosis or edema and no calf tenderness Skin no rashes or lesions noted General Skin Exam: no breakdown Neuro CN's II-XII intact bilaterally and no focal motor deficits Neuro Narrative: nonverbal, awake Sensorium / Orientation: awake and alert Motor Exam: general weakness Psych Psych Narrative: Patient is nonverbal Assessment & Plan Assessment/Plan (1) Acute hypoxic respiratory failure: (2) Pneumonia: QUALIFIERS: Pneumonia type: due to unspecified organism Laterality: right Lung location: unspecified part of lung Qualified Code(s): J18.9 - Pneumonia, unspecified organism (3) Sepsis: QUALIFIERS: Sepsis type: sepsis due to unspecified organism Sepsis acute organ dysfunction status: with acute organ dysfunction Severe sepsis acute organ dysfunction type: encephalopathy Severe sepsis shock status: without septic shock Qualified Code(s): A41.9 - Sepsis, unspecified organism; R65.20 - Severe sepsis without septic shock; G93.41 - Metabolic encephalopathy PLAN: Plan #Acute hypoxic respiratory failure due to bilateral community acquired pneumonia * on IV zosyn and vancomycin * now extubated and remains 4L of oxygen. * precedex drip weaned off * critical care on board. * ID on board. * respiratory panel positive for rhinovirus, but sputum cultures were negative. * she is still in cumulative positive balance by 6L * on IV lasix 40mg q8 * #Acute upper GI bleed * had coffee ground emesis. on IV pantoprazole * guaiac for gastric aspirate is positive. * Hb is 15 today. May have been due to stress ulcer. Hb is stable. * can follow up with GI on outpatient basis * #Septic shock due to bilateral pneumonia * On IV vancomycin and Zosyn. ID on board. Blood cultures negative during this admission. Critical care also on board. * wbc is up to 28.1 today. Due to steroids. Will DC Solu-Medrol today. * #Elevated BUN: BUN is up to 40 today. Was 18 on admission. May be due to Lasix every 8 that patient is receiving. Will monitor for now and cut down lasix. * #Thrombocytosis: platelets are 523. Likely due to acute infection. Will monitor for now. #Autism with delayed 2 social and cognitive milestones. * Complicates acute care, expected recovery and prognosis. * DVT Prophylaxis; SCDs. Not on anticoagulants due to probable acute upper GI bleed. Total time spent on evaluation and management of patient, reviewing chart and specialist notes, discussion with nursing and ancillary staff as well as documentation: 35 mins Charges/Coding Visit Charges Inpatient E&M: 65048 Subs Hosp L2
--- NOTE | 2023-10-04 15:41 | ST.MBS ---
Modified Barium Swallow Patient Information Study Date: 10/04/23 Study Time: 12:30 Direct Billable Minutes: 98 Total Minutes procedure & reportin Diagnosis: Acute hypoxic respiratory failure J96.01, PNA J18.9 Referring Physician: Yani García Reason for Referral: Objectively assess swallow function, assess risk for aspiration, and determine recommendations for least restrictive diet textures and compensatory strategies to improve safety of swallow. Medical History: PMH: Asthma, Autism, Hormonal disorder, and Sleep apnea. The patient was brought to [facility] ED 09/25/2023 with a fever and difficulty breathing. Her mother provided all history. Her assessment was consistent with sepsis secondary to pneumonia. She was admitted to be monitored for subsequent management of sepsis secondary to PNA and hypoxic respiratory failure. Chest x-ray showed extensive infiltrates on the right side. She was recommended NPO by dietician until her mental status improved. 09/27/2023 the patient had severe dyspnea and labored respirations despite being on Airvo and treatment wiht IM Haldol. She was transferred to ICU and intubated shortly after. The patient was intubated ~7AM on 10/02/[address] consult prior to diet advancement. Per RN, the patient was on a chopped diet with thin liquids. Per mother, there were no concerns for aspiration prior to this hospitalization; however, the patient has had PNA several times before and required intubation ~3 years ago. At initial evaluation with ST on 10/02/2023, the patient was orally defensive and consumed limited trials. She was recommended NPO with sips/chips. 10/03/2023, she was recommended for MBSS prior to diet advancement. Current Diet Ordered: NPO Dentition: Natural Teeth Mental Status: Impaired (Mostly nonverbal, difficulty following commands) Respiratory Status: Oxygenating on 4L/M nasal cannula Penetration-Aspiration Scale Penetration-Aspiration Scale: OBJECTIVE ASSESSMENT OF SWALLOW FUNCTION (QUANTITATIVE ? PER TRIAL): PENETRATION / ASPIRATION SCALE (FALL): 1 = does not enter airway 2 = enters airway/above vocal folds/ejected 3 = enters airway/above vocal folds/not ejected 4 = enters airway/contacts vocal folds/ejected 5 = enters airway/contacts vocal folds/not ejected 6 = enters airway/below vocal folds/ejected 7 = enters airway/below vocal folds/not ejected despite effort 8 = enters airway/below vocal folds/no effort VIDEOFLOROSCOPIC SCALE SCORE (FALL): Grade I = aspiration of material that has penetrated into the laryngeal vestibule, intact cough reflex Grade II = aspiration < 10 % of the bolus, intact cough reflex Grade III = aspiration of < 10 % of the bolus, reduced cough reflex or aspiration of > 10 % of the bolus, intact cough reflex Grade IV = aspiration of > 10 % of the bolus, reduced cough reflex Penetration-Aspiration Scale Score Thin Liquid via teaspoon: Result: 1= does not enter airway Thin Liquid via sequential sips:straw: Result: 1= does not enter airway Thin Liquid via sequential sips: cup: Result: 1= does not enter airway Pudding via teaspoon: Result: 1= does not enter airway Pudding via teaspoon Trial 2: Result: 1= does not enter airway 1/2 Cookie: Result: 1= does not enter airway Thin Liquid via sequential sips: cup Trial 2: Result: 1= does not enter airway Oral Phase Labial Seal: Escape progressing to mid-chin (Patient resistive when accepting first sip by tsp from [employer].) Tongue Control During Bolus Hold: Posterior escape of less than half of bolus Bolus Preparation/Mastication: Slow prolonged chewing/mashing with complete recollection Bolus Transport/Lingual Motion: Repetitive/disorganized tongue motion Oral Residue: Residue collection on oral structures Pharyngeal Phase Initiation of Pharyngeal Swallow: Bolus head in pyriforms Soft Palate Elevation: No bolus between soft palate and pharyngeal wall Laryngeal Elevation: Comp. Superior move thyroid cart w/comp. apprx arytenoid cart-epig pet Anterior Hyoid Excursion: Partial anterior movement Epiglottic Movement: Partial inversion Laryngeal Vestibule Closure at Height of Swallow: Complete; no air/contrast in laryngeal vestibule Pharyngeal Stripping Wave: Present - complete Pharyngoesophageal Segment Opening: Parital distension and partial duration; parital obstruction of flow Tongue Base Retraction: Narrow column of contrast between tongue base & post. pharyngeal wall Pharyngeal Residue: Trace residue within or on pharyngeal structures Diagnosis/Impression Diagnosis: Mild oropharyngeal dysphagia R13.12 Impression: The oral phase is primarily marked by... -Decreased bolus control with <1/2 of thin liquid boluses spilling posteriorly to the pyriforms prior to swallow onset. -Disorganized tongue motion observed during A-P transport. -Prolonged mastication, but cookie appeared fully chewed. The pharyngeal phase is primarily marked by... -Mildly decreased anterior hyoid excursion; however, the patient maintained good airway closure during the swallow due to complete laryngeal elevation. -Mildly decreased tongue base retraction and UES opening/duration, but only trace pharyngeal residues after the swallow. -Delayed swallow onset. -No laryngeal penetration or aspiration despite quick rate of intake. She did sounds short of breath after sequential sips 2X, but no aspiration occurred and SpO2 maintained low-mid 90s. Recommendations Diet: Regular Textures (Easy to Chew Textures) and Thin Liquids Comment: Supervision at meals and assist feeding as needed Compensatory Strategies: Small Bites, Small Sips, Slow Rate, Alternate bites/solids and sips/liquids, Sitting upright and Remain sitting upright for 30 minutes after PO intake Recommend Repeat Modified Barium Swallow: No Need for Skilled Speech Therapy Services: Yes Comment: Follow 2-3X to ensure diet tolerance. Trial regular textures in upcoming sessions to consider further diet advancement. Education Completed: 1. Described result of evaluation. and 4. Family/caregivers understand evaluation & agree w/ goals & tx plan. Status Active ST Patient: Active Contact Information [facility] Speech Therapy:: Narda Byrne M.A. [facility] Speech-Language Pathologist [facility] [address] [place] [address] [phone]
[2023-10-04] MEDS: Potassium Chloride Oral Soln 20 MEQ/15 ML UDC 40 MEQ PO (16:35)
[2023-10-04] MEDS: guaiFENesin 10 ML UDC (200MG/10ML) GT (16:35)
[2023-10-04] MEDS: Montelukast 10 MG Tablet PO (20:48)
[2023-10-04 23:14] LABS: Bedside Glucose 149 mg/dL (74-106)
[2023-10-04 23:28] LABS: Bedside Glucose 226 mg/dL (74-106)
[2023-10-05] VITALS (8 sets, daily range): BP systolic 95–116; BP diastolic 70–91; PULSE 74–100; RESP 14–20; TEMP 36.4–36.6; O2SAT 88–100; BMI 35.1
[2023-10-05] MEDS: 0.9% Saline Lock 10 ML Syringe IV ×2 (01:06→10:31)
[2023-10-05] MEDS: Menthol/Lanolin/Calamine/Znox 113 GM Tube 1 APPLIC TOPICAL ×3 (06:17→21:14)
[2023-10-05] MEDS: Miconazole Nitrate 43 GM Bottle 1 APPLIC TOPICAL ×3 (06:17→21:13)
[2023-10-05] MEDS: guaiFENesin 10 ML UDC (200MG/10ML) PO ×3 (06:22→18:36)
[2023-10-05 06:57] LABS: Bedside Glucose 145 mg/dL (74-106)
--- NOTE | 2023-10-05 06:58 | PN.CC_ITS ---
Assessment & Plan Assessment/Plan (1) Sepsis: QUALIFIERS: Sepsis type: sepsis due to unspecified organism Sepsis acute organ dysfunction status: with acute organ dysfunction Severe sepsis acute organ dysfunction type: encephalopathy Severe sepsis shock status: without septic shock Qualified Code(s): A41.9 - Sepsis, unspecified organism; R65.20 - Severe sepsis without septic shock; G93.41 - Metabolic encephalopathy (2) Pneumonia: QUALIFIERS: Pneumonia type: due to unspecified organism Laterality: right Lung location: unspecified part of lung Qualified Code(s): J18.9 - Pneumonia, unspecified organism (3) Acute hypoxic respiratory failure: (4) Autism: PLAN: Plan RECOMMENDATIONS: 1. Continue to wean supplemental oxygen to maintain saturations at or above 90%. 2. Antimicrobials per ID recommendations. 3. Continue aggressive bronchopulmonary hygiene. 4. Will discontinue steroids today. 5. Continue gentle diuresis as tolerated by hemodynamics and renal function. 6. Will sign off from a critical care perspective. Please call with any additional questions. IMPRESSIONS: 1. Septic shock secondary to bilateral pneumonia/rhinovirus URI The patient is improving clinically with supportive measures including johns pplemental oxygen and antimicrobials. Continue to wean oxygen to maintain saturations at or above 90%. Antimicrobials will be continued per ID recommendations. Continue gentle diuresis as tolerated by hemodynamics and renal function. The patient remains hemodynamically stable. 2. Acute hypoxic respiratory failure secondary to bilateral pneumonia The patient has extensive consolidation on the right and some infiltrates on the left. Bronchoscopy following intubation did not show any significant central mucous plugging. The patient is doing well from a respiratory perspective following extubation. She does have a reported history of asthma. Therefore, we will plan to continue bronchodilators. Steroids can be discontinued today from my perspective. 3. Autism/morbid obesity/allergies/GERD/history of MDRO Complicates care, management, recovery and prognosis. The patient's mother was very clear that she is a full code and would want everything done including intubation and CPR. This note was generated with [employer] dictation software. It may contain incorrect words, spelling, and punctuation that were not noted in checking the note before signing. Subjective Subjective The patient was seen and examined at the bedside this morning. Events from the last 24 hours have been reviewed. The patient is currently afebrile, hemodynamically stable and maintaining appropriate oxygen saturations on 4 L/min via nasal cannula. The patient is documented to be overall net +6.8 L for the hospitalization. The patient completed her modified barium swallow yesterday with dietary advancement per speech therapy. Serum bicarbonate has normalized this morning on BMP. Objective Data Objective Data The patient's most recent lab work, culture data and imaging studies have all been personally reviewed. Surface echocardiogram demonstrated an ejection fraction of 55 to 60%. Respiratory viral panel was positive for rhinovirus on September 28. Vital Signs: Vital Signs Temp Pulse Resp BP Pulse Ox O2 Del Method O2 Flow Rate 97.7 F L 84 18 116/91 H 94 Nasal Cannula 4 10/05/23 03:50 10/05/23 03:50 10/05/23 03:50 10/05/23 03:50 10/05/23 03:50 10/05/23 04:19 10/05/23 04:19 FiO2 40 10/02/23 07:00 Oxygen Flow Rate (L/min) 4 Oxygen Delivery Method Nasal Cannula Weight: 156 lb 8.451 oz Body Mass Index (BMI) 35.1 Intake & Output: Intake and Output for Last 24 Hours 10/03/23 10/04/23 10/05/23 23:59 23:59 23:59 Intake Total 370 / 370 370 / 370 250 / 250 Output Total 2550 / 2550 Balance -2180 / -2180 370 / 370 250 / 250 Lab / Micro Data Attestation: I reviewed the patient's lab results. 10/05/23 07:10 10/05/23 07:10 Labs: Laboratory Results - last 24 hr 10/04/23 11:42: POC Glucose 153 H 10/04/23 16:34: POC Glucose 226 H 10/04/23 22:55: POC Glucose 149 H 10/05/23 06:12: POC Glucose 145 H Micro: Microbiology 09/25/23 08:00 Blood Culture (Wb) - Left Hand Blood Culture - Final No growth in 5 days. 09/25/23 07:20 Blood Culture (Wb) - Left Hand Blood Culture - Final No growth in 5 days. 09/27/23 07:30 Bronchial Lavage - Right Middle Lobe Gram Stain - Final 09/27/23 07:30 Bronchial Lavage - Right Middle Lobe Respiratory Culture - Final Culture exhibits no growth. 09/28/23 15:20 Mucosa - Nasopharyngeal Respiratory Panel (PCR) - Final Rhinovirus 09/27/23 10:15 Gastric Fluid/Contents Gastric Occult Blood - Final Occult Blood Positive 09/25/23 07:55 Urine, Catheterized Urine Culture - Final Culture exhibits no growth. 09/25/23 08:25 Sputum, Expectorated/Coughed Gram Stain - Final 09/25/23 08:25 Sputum, Expectorated/Coughed Respiratory Culture - Final 09/27/23 04:00 Stool Stool Occult Blood (YVETTE) - Final 09/25/23 07:55 Urine Catheter - Catheter Legionella Antigen - Final 09/25/23 07:55 Urine Catheter - Catheter Streptococcus pneumoniae Antigen (M - Final 09/25/23 07:29 Interface Orders Rapid RSV (DFA) - Final 09/25/23 07:20 Nasal Secretion SARS-CoV-2 & FLU Antigen (Rapid) - Final Physical Exam Const alert and no apparent distress Constitutional Narrative: Hirsutism noted. HEENT normocephalic and head/scalp atraumatic Eyes PERRL and EOMs intact bilaterally Neck supple General: trachea midline Chest inspection of chest normal Resp normal respiratory effort Auscultation: diminished lung sounds Cardio regular rate and regular rhythm GI normal to inspection, nondistended, normoactive bowel sounds Extremity no clubbing, cyanosis or edema Skin no rashes or lesions noted Neuro Neuro Narrative: Nonverbal. No focal deficits. Psych Mood & Affect: flat affect Charges/Coding Visit Charges Inpatient E&M: 98020 Subs Hosp L2
[2023-10-05 07:25] LABS: Absolute Lymphocyte Count 2.63 X10^3/uL (0.83-4.51); Absolute Neutrophil Count 24.6 X10^3/uL (2.0-7.7); Basophil# 0.06 X10^3/uL; Basophil% 0.2 % (0-1); Eosinophil# 0.08 X10^3/uL; Eosinophils% 0.3 % (0-5); Hematocrit 46.1 % (37-47); Hemoglobin 15.3 g/dL (12.0-15.0); Lymphocyte # 2.63 X10^3/ul (0.83-4.51); Mean Corp Hgb Conc 33.2 g/dL (32-36); Mean Corpuscular Hgb 30.4 pg (27.0-32.0); Mean Corpuscular Volume 91.7 fL (81-99); Mean Platelet Vol. 8.8 fl (6.2-12.0); Monocyte# 1.31 X10^3/uL; Monocyte% 4.5 % (0-10); NRBC Flagged by Analyzer 0 % (0-5); Neutrophil # 24.56 X10^3/uL (2.7-7.7); POSITIVE DIFFERENTIAL YES; Platelet Count 599 K/mm3 (150-450); RBC Distribution Width CV 13.7 % (11.6-14.6); Red Blood Count 5.03 M/mm3 (4.2-5.4); White Blood Count 29.2 K/mm3 (4.4-11.0)
[2023-10-05 07:30] LABS: Differential Indicated SCAN CRITERIA MET
[2023-10-05] MEDS: Albuterol 2.5 MG/3 ML VIAL.NEB. INHALATION ×2 (07:30→18:47)
[2023-10-05 08:10] LABS: Anion Gap 10 (5-15); BUN 39 mg/dL (7-18); BUN/Creat Ratio 46.7 RATIO (10-20); Calcium,Total 8.3 mg/dL (8.5-10.1); Chloride 103 mmol/L (98-107); Creatinine, Serum 0.84 mg/dL (0.55-1.02); EST Glomerular Filtration Rate 82 mL/min (>60); Est Glom Filt Rate - Afr Amer 99 mL/min (>60); Estimated Creatinine Clearance 104.77 ml/min; Glucose 72 mg/dL (74-106); Potassium 3.7 mmol/L (3.5-5.1); Sodium Level 140 mmol/L (136-145)
[2023-10-05] MEDS: Potassium Chloride Oral Soln 20 MEQ/15 ML UDC 40 MEQ PO ×2 (08:40→18:36)
[2023-10-05] MEDS: Loratadine 10 MG Tablet PO (08:41)
--- NOTE | 2023-10-05 09:30 | CASEMGMT ---
RN CM updated that patient may discharge over the weekend and may require oxygen at discharge. RN CM in to discuss needs at discharge with mother. Mother prefers [facility]. Mother states patient will also need walker at discharge. [facility] does not deliver on the weekend. RN CM confirmed that patient will discharge to brother's home in [place] and confirmed address. CM updated hospitalist.
--- NOTE | 2023-10-05 09:53 | PN_ITS ---
Subjective Subjective Patient seen and examined. Her mother was by her bedside. She was alert but remains nonverbal. Mother had no active concerns. Review of systems otherwise negative. She remains on 4 L of oxygen. WBC is up to 29.2 today Objective Data Objective Data Vital Signs: Vital Signs Temp Pulse Resp BP Pulse Ox O2 Del Method O2 Flow Rate 97.7 F L 85 20 H 116/91 H 94 Nasal Cannula 4 10/05/23 03:50 10/05/23 07:30 10/05/23 07:30 10/05/23 03:50 10/05/23 03:50 10/05/23 04:19 10/05/23 04:19 FiO2 40 10/02/23 07:00 Oxygen Flow Rate (L/min) 4 Oxygen Delivery Method Nasal Cannula Weight: 156 lb 8.451 oz Body Mass Index (BMI) 35.1 Intake & Output: Intake and Output for Last 24 Hours 10/03/23 10/04/23 10/05/23 23:59 23:59 23:59 Intake Total 370 / 370 370 / 370 250 / 250 Output Total 2550 / 2550 Balance -2180 / -2180 370 / 370 250 / 250 Lab / Micro Data 10/05/23 07:10 10/05/23 07:10 Labs: Laboratory Results - last 24 hr 10/04/23 11:42: POC Glucose 153 H 10/04/23 16:34: POC Glucose 226 H 10/04/23 22:55: POC Glucose 149 H 10/05/23 06:12: POC Glucose 145 H 10/05/23 07:10: WBC 29.2 H, RBC 5.03, Hgb 15.3 H, Hct 46.1, MCV 91.7, MCH 30.4, MCHC 33.2, RDW Std Deviation 46.0 H, RDW Coeff of [place] 13.7, Plt Count 599 H, MPV 8.8, Immature Gran % (Auto) 2.000 H, Neut % (Auto) 84.0 H, Lymph % (Auto) 9.0 L, [place] % (Auto) 4.5, Eos % (Auto) 0.3, Baso % (Auto) 0.2, Absolute Neuts (auto) 24.6 H, Absolute Lymphs (auto) 2.63, Nucleated RBC % 0, Sodium 140, Potassium 3.7, Chloride 103, Carbon Dioxide 27.0, Anion Gap 10, BUN 39 H, Creatinine 0.84, Estim Creat Clear Calc 104.77, Est GFR (MDRD) Af Amer 99, Est GFR (MDRD) Non-Af 82, BUN/Creatinine Ratio 46.7 H, Glucose 72 L, Calcium 8.3 L Micro: Microbiology 09/25/23 08:00 Blood Culture (Wb) - Left Hand Blood Culture - Final No growth in 5 days. 09/25/23 07:20 Blood Culture (Wb) - Left Hand Blood Culture - Final No growth in 5 days. 09/27/23 07:30 Bronchial Lavage - Right Middle Lobe Gram Stain - Final 09/27/23 07:30 Bronchial Lavage - Right Middle Lobe Respiratory Culture - Final Culture exhibits no growth. 09/28/23 15:20 Mucosa - Nasopharyngeal Respiratory Panel (PCR) - Final Rhinovirus 09/27/23 10:15 Gastric Fluid/Contents Gastric Occult Blood - Final Occult Blood Positive 09/25/23 07:55 Urine, Catheterized Urine Culture - Final Culture exhibits no growth. 09/25/23 08:25 Sputum, Expectorated/Coughed Gram Stain - Final 09/25/23 08:25 Sputum, Expectorated/Coughed Respiratory Culture - Final 09/27/23 04:00 Stool Stool Occult Blood (YVETTE) - Final 09/25/23 07:55 Urine Catheter - Catheter Legionella Antigen - Final 09/25/23 07:55 Urine Catheter - Catheter Streptococcus pneumoniae Antigen (M - Final 09/25/23 07:29 Interface Orders Rapid RSV (DFA) - Final 09/25/23 07:20 Nasal Secretion SARS-CoV-2 & FLU Antigen (Rapid) - Final Physical Exam Const alert and no apparent distress Constitutional Narrative: flat affect General Appearance: cooperative and well developed Orientation / Consciousness: awake HEENT normocephalic, head/scalp atraumatic and moist oral mucous membranes Eyes PERRL, EOMs intact bilaterally and conjunctivae normal Neck no lymphadenopathy, supple, no JVD, thyroid normal and no carotid bruits General: trachea midline Lymph Lymphatic: no lymphadenopathy noted and no lymphedema noted Resp Resp Narrative: diminished breath sounds bibasally, few crackles. Remains on 4 L of oxygen by nasal canula Auscultation: Negative for rales, rhonchi or wheezes Cardio regular rate, regular rhythm, S1 normal heart sound, S2 normal heart sound, no murmurs, no rub and no gallops GI normal to inspection, nondistended, normoactive bowel sounds, soft to palpation, non-tender and non-distended Extremity normal capillary refill, no clubbing, cyanosis or edema and no calf tenderness Skin no rashes or lesions noted General Skin Exam: no breakdown Neuro CN's II-XII intact bilaterally and no focal motor deficits Neuro Narrative: nonverbal, awake Sensorium / Orientation: awake and alert Motor Exam: general weakness Psych Psych Narrative: Patient is nonverbal Assessment & Plan Assessment/Plan (1) Acute hypoxic respiratory failure: (2) Pneumonia: QUALIFIERS: Pneumonia type: due to unspecified organism Laterality: right Lung location: unspecified part of lung Qualified Code(s): J18.9 - Pneumonia, unspecified organism (3) Sepsis: QUALIFIERS: Sepsis type: sepsis due to unspecified organism Sepsis acute organ dysfunction status: with acute organ dysfunction Severe sepsis acute organ dysfunction type: encephalopathy Severe sepsis shock status: without septic shock Qualified Code(s): A41.9 - Sepsis, unspecified organism; R65.20 - Severe sepsis without septic shock; G93.41 - Metabolic encephalopathy PLAN: Plan #Acute hypoxic respiratory failure due to bilateral community acquired pneumonia and rhinovirus infection * on IV zosyn and vancomycin * now extubated and remains 4L of oxygen. * precedex drip weaned off * critical care on board. * ID on board. * respiratory panel positive for rhinovirus, but sputum cultures were negative. * she is still in cumulative positive balance by 6.88L * on IV lasix 40mg daily now * #Acute upper GI bleed * had coffee ground emesis. on IV pantoprazole * guaiac for gastric aspirate is positive. * Hb is 15.3 today. May have been due to stress ulcer. Hb is stable. * can follow up with GI on outpatient basis * #Septic shock due to bilateral pneumonia * On IV vancomycin and Zosyn. ID on board. Blood cultures negative during this admission. Critical care also on board. * wbc is up to 29.1 today. Due to steroids. Will DC Solu-Medrol today. * #Elevated BUN: BUN is slightly down to 39 today. Was 18 on admission. May be due to Lasix every 8 that patient is receiving. Now on IV lasix 40mg daily. * #Thrombocytosis: platelets are further up to 599. Likely due to acute infection. Will monitor for now. If it continues to trend upwards will consult hematology #Autism with delayed 2 social and cognitive milestones. * Complicates acute care, expected recovery and prognosis. * DVT Prophylaxis; SCDs. Not on anticoagulants due to probable acute upper GI bleed. Total time spent on evaluation and management of patient, reviewing chart and specialist notes, discussion with nursing and ancillary staff as well as documentation: 35 mins Charges/Coding Visit Charges Inpatient E&M: 33329 Subs Hosp L2
[2023-10-05] MEDS: Fluticasone 0.05% 1 SPRAY NASAL.SRY 2 SPRAY NASAL (10:26)
[2023-10-05] MEDS: Furosemide 40 MG/4 ML Vial IV (10:27)
[2023-10-05] MEDS: Pantoprazole Sodium 40 MG in 0.9% Normal Saline (100mL MB+) 100 ML 330 MG IV ×2 (10:27→21:07)
[2023-10-05] MEDS: MINERAL OIL/PETROLATUM,WHITE 3.5 GM OINT...G. OPHTHALMIC (10:27)
[2023-10-05] MEDS: Insulin Glargine-YFGN 100 UNIT/ML Pen 20 UNIT SC (10:28)
[2023-10-05 12:50] LABS: Bedside Glucose 127 mg/dL (74-106)
--- NOTE | 2023-10-05 13:54 | PCM.PN.ID ---
Physical Exam Narrative Feeling better, no fever Const no apparent distress General Appearance: cooperative Resp normal air movement and clear to auscultation bilaterally Cardio regular rate and regular rhythm GI soft to palpation, non-tender and non-distended Skin no rashes or lesions noted ID ID: Route of nutrition/ use of supplements: [] Nutritional Intake: [] IV Site: [] Rivera Catheter: [] Assessment & Plan Assessment/Plan (1) Sepsis: QUALIFIERS: Sepsis type: sepsis due to unspecified organism Sepsis acute organ dysfunction status: with acute organ dysfunction Severe sepsis acute organ dysfunction type: encephalopathy Severe sepsis shock status: without septic shock Qualified Code(s): A41.9 - Sepsis, unspecified organism; R65.20 - Severe sepsis without septic shock; G93.41 - Metabolic encephalopathy (2) Pneumonia: QUALIFIERS: Pneumonia type: due to unspecified organism Laterality: right Lung location: unspecified part of lung Qualified Code(s): J18.9 - Pneumonia, unspecified organism PLAN: Fever resolved. BP improved, remains off vent. Cxs neg so far. PCR (+) rhinovirus. Now off abx. Will sign off (3) Acute hypoxic respiratory failure:
--- NOTE | 2023-10-05 15:00 | CASEMGMT ---
RN MARTÍN received scripts for oxygen and walker [facility] Green sheet placed on chart if patient would require additional oxygen at discharge.
[2023-10-05] MEDS: Insulin Lispro 100 UNIT/ML INSULN.PEN SC (21:08)
[2023-10-05] MEDS: Senna/Docusate Sodium 1 Tablet 2 TABLET PO (21:09)
[2023-10-05] MEDS: Montelukast 10 MG Tablet PO (21:11)
[2023-10-05 23:51] LABS: Bedside Glucose 168 mg/dL (74-106)
[2023-10-06 03:30] VITALS: BP 107/68; PULSE 78; RESP 17; TEMP 36.4; O2SAT 97
[2023-10-06 06:00] VITALS: BMI 36.0
[2023-10-06 06:13] LABS: Absolute Lymphocyte Count 2.54 X10^3/uL (0.83-4.51); Absolute Neutrophil Count 19.6 X10^3/uL (2.0-7.7); Basophil# 0.05 X10^3/uL; Basophil% 0.2 % (0-1); Eosinophil# 0.18 X10^3/uL; Eosinophils% 0.8 % (0-5); Hematocrit 44.9 % (37-47); Hemoglobin 14.3 g/dL (12.0-15.0); Lymphocyte # 2.54 X10^3/ul (0.83-4.51); Lymphocyte % 10.8 % (19-41); Mean Corp Hgb Conc 31.8 g/dL (32-36); Mean Corpuscular Hgb 29.4 pg (27.0-32.0); Mean Corpuscular Volume 92.4 fL (81-99); Mean Platelet Vol. 8.7 fl (6.2-12.0); Monocyte# 0.89 X10^3/uL; Monocyte% 3.8 % (0-10); NRBC Flagged by Analyzer 0 % (0-5); Neutrophil # 19.55 X10^3/uL (2.7-7.7); Neutrophil % 83.2 % (47-70); Platelet Count 550 K/mm3 (150-450); RBC Distribution Width CV 13.3 % (11.6-14.6); RBC Distribution Width SD 45.1 fl (35.1-43.9); Red Blood Count 4.86 M/mm3 (4.2-5.4); White Blood Count 23.5 K/mm3 (4.4-11.0)
[2023-10-06 06:38] LABS: Anion Gap 8 (5-15); BUN 26 mg/dL (7-18); BUN/Creat Ratio 40.1 RATIO (10-20); Calcium,Total 8.5 mg/dL (8.5-10.1); Chloride 104 mmol/L (98-107); Creatinine, Serum 0.65 mg/dL (0.55-1.02); EST Glomerular Filtration Rate 110 mL/min (>60); Est Glom Filt Rate - Afr Amer 133 mL/min (>60); Estimated Creatinine Clearance 139.02 ml/min; Glucose 119 mg/dL (74-106); Potassium 4.3 mmol/L (3.5-5.1); Sodium Level 138 mmol/L (136-145)
[2023-10-06] MEDS: guaiFENesin 10 ML UDC (200MG/10ML) PO (06:39)
[2023-10-06] MEDS: Miconazole Nitrate 43 GM Bottle 1 APPLIC TOPICAL (06:39)
[2023-10-06 07:01] LABS: Bedside Glucose 118 mg/dL (74-106)
[2023-10-06 09:05] VITALS: BP 108/67; PULSE 91; RESP 18; TEMP 36.5; O2SAT 99
[2023-10-06] MEDS: Potassium Chloride Oral Soln 20 MEQ/15 ML UDC 40 MEQ PO (09:05)
[2023-10-06] MEDS: Loratadine 10 MG Tablet PO (09:06)
[2023-10-06] MEDS: Furosemide 40 MG/4 ML Vial IV (09:06)
[2023-10-06] MEDS: Fluticasone 0.05% 1 SPRAY NASAL.SRY 2 SPRAY NASAL (09:07)
[2023-10-06] MEDS: MINERAL OIL/PETROLATUM,WHITE 3.5 GM OINT...G. OPHTHALMIC (09:07)
[2023-10-06] MEDS: Pantoprazole Sodium 40 MG in 0.9% Normal Saline (100mL MB+) 100 ML 330 MG IV (09:09)
[2023-10-06] MEDS: 0.9% Saline Lock 10 ML Syringe IV (09:09)
--- NOTE | 2023-10-06 09:17 | CASEMGMT ---
JEN RESENDIZ in to discuss needs at discharge. Father and mother at bedside. Per father, oxygen was delivered by [facility] to [place]. JEN RESENDIZ provided pulse ox to family. JEN RESENDIZ provided information to [facility] for hospital follow-up. Father and mother had no further questions or concerns at this time.
--- NOTE | 2023-10-06 12:39 | DCINST_ITS ---
Discharge Instructions Diet Discharge Diet: Low fat / Low cholesterol Activity Discharge Activity: Return to Normal Activity Weight Bearing Status: Weight bearing as tolerated Dressing / Incision Call your doctor if you observe: Fever of 101 or Higher, Shortness of breath, Dizziness, Swelling in the ankles and Chest pain Follow Up Care Test Results: Test results from this visit will be discussed in further detail at your follow- up appointment, if applicable. Discharge Plan Admission Admit Date/Time: 09/25/23 09:31 Primary Reason for Your Visit: acute hypoxic respitaroty failrue, pneumonia Attending Provider: Yani García Primary Care Provider: BURKE BLACK Consulting Providers: Yahir Tabares; Angel Roa; Omega Chauhan; Jun Wilkinson Instructions Patient Instructions: ED Pneumonia (Adult) Discharge Orders/Prescriptions Prescriptions: Continued albuterol sulfate 2.5 mg /3 mL (0.083 %) solution for nebulization 2.5 mg continuous nebulization Q6H PRN (Reason: shortness of breath) fluticasone propion-salmeterol [Advair HFA] 45-21 mcg/actuation HFA aerosol inhaler 2 inh INHALATION Q12H meclizine 25 mg tablet,chewable 25 mg PO DAILY PRN (Reason: vertigo) norethindrone (contraceptive) [Ana Rosa] 0.35 mg tablet 0.35 mg PO DAILY fluticasone propionate 50 mcg/actuation spray,suspension 2 spray INTRANASAL DAILY famotidine 20 mg tablet 20 mg PO QHS montelukast 10 mg tablet 10 mg PO QPM artificial tears with lanolin Ointment 1 applic EACH EYE DAILY metformin 1,000 mg tablet 1,000 mg PO BID albuterol sulfate 90 mcg/actuation HFA aerosol inhaler 1 inh INHALATION Q6H PRN (Reason: shortness of breath) Align 4 mg capsule 4 mg PO DAILY Patient Comments: PT GETS OTC ALIGN PROBIOTIC cetirizine 10 mg tablet 10 mg PO DAILY Referrals / Follow Up: BURKE BLACK [Other] - Within 2 Weeks Jan Cary MD [Med Staff - Active Staff] - Within 1 Week (see to establish PCP care whilst in [place]) Disposition Disposition (needs filled in before D/C Order can be placed): Home, Self Care
--- NOTE | 2023-10-06 12:48 | PCM.DC.SUM ---
Providers Date of Admission: 09/25/23 Date of Discharge: 10/06/23 Primary Care Physician: BURKE BLACK Consultations 09/26/23 09:12 Consult: Direct Service Professional / Pulmonary Medicine Routine Consulting Provider: Pulmonary Medicine clement Martin Reason for Consult: pneumonia, respiratory failure EMERGENT Consult: No Notified: Yes Date Notified: 09/26/23 Time Notified: 09:12 Method of Notification: Verbal 09/28/23 13:50 Consult: Infectious Disease Routine Consulting Provider: Jun Wilkinson Reason for Consult: B/L Pneumonia, atelactasis, on vent EMERGENT Consult: No Notified: Yes Date Notified: 09/28/23 Time Notified: 13:51 Method of Notification: Text Reason For Visit: SEPSIS Diagnosis Discharge Diagnosis (1) Sepsis: Status: Acute Code(s): A41.9 - Sepsis, unspecified organism Qualifiers: Sepsis acute organ dysfunction status: with acute organ dysfunction Sepsis type: sepsis due to unspecified organism Severe sepsis acute organ dysfunction type: encephalopathy Severe sepsis shock status: without septic shock Qualified Code(s): A41.9 - Sepsis, unspecified organism; R65.20 - Severe sepsis without septic shock; G93.41 - Metabolic encephalopathy (2) Pneumonia: Status: Acute Code(s): J18.9 - Pneumonia, unspecified organism Qualifiers: Laterality: right Lung location: unspecified part of lung Pneumonia type: due to unspecified organism Qualified Code(s): J18.9 - Pneumonia, unspecified organism (3) Acute hypoxic respiratory failure: Status: Acute Code(s): J96.01 - Acute respiratory failure with hypoxia Plan #Acute hypoxic respiratory failure due to bilateral community acquired pneumonia and rhinovirus infection on IV zosyn and vancomycin now extubated and remains 4L of oxygen. precedex drip weaned off critical care on board. ID on board. respiratory panel positive for rhinovirus, but sputum cultures were negative. she is still in cumulative positive balance by 6.88L on IV lasix 40mg daily now #Acute upper GI bleed had coffee ground emesis. on IV pantoprazole guaiac for gastric aspirate is positive. Hb is 15.3 today. May have been due to stress ulcer. Hb is stable. can follow up with GI on outpatient basis #Septic shock due to bilateral pneumonia On IV vancomycin and Zosyn. ID on board. Blood cultures negative during this admission. Critical care also on board. wbc is up to 29.1 today. Due to steroids. Will DC Solu-Medrol today. #Elevated BUN: BUN is slightly down to 39 today. Was 18 on admission. May be due to Lasix every 8 that patient is receiving. Now on IV lasix 40mg daily. #Thrombocytosis: platelets are further up to 599. Likely due to acute infection. Will monitor for now. If it continues to trend upwards will consult hematology #Autism with delayed 2 social and cognitive milestones. Complicates acute care, expected recovery and prognosis. DVT Prophylaxis; SCDs. Not on anticoagulants due to probable acute upper GI bleed. Total time spent on evaluation and management of patient, reviewing chart and specialist notes, discussion with nursing and ancillary staff as well as documentation: 35 mins Medications at Discharge Home Medications Bifidobacterium infantis 4 mg capsule (Align) 4 mg PO DAILY GUT HEALTH 09/25/23 albuterol sulfate 2.5 mg/3 mL (0.083 %) solution for nebulization 2.5 mg continuous nebulization Q6H PRN shortness of breath 09/25/23 albuterol sulfate 90 mcg/actuation aerosol inhaler 1 inh inhalation Q6H PRN shortness of breath 09/25/23 artificial tears with lanolin eye ointment 1 applic EACH EYE DAILY dry eye relief 09/25/23 cetirizine 10 mg tablet 10 mg PO DAILY allergies 09/25/23 famotidine 20 mg tablet 20 mg PO QHS acid reflux 09/25/23 fluticasone propionate 45 mcg-salmeterol 21 mcg/actuation HFA inhaler (Advair HFA) 2 inh inhalation Q12H shortness of breath 09/25/23 fluticasone propionate 50 mcg/actuation nasal spray,suspension 2 spray intranasal DAILY nasal congestion 09/25/23 meclizine 25 mg chewable tablet 25 mg PO DAILY PRN vertigo 09/25/23 metformin 1,000 mg tablet 1,000 mg PO BID hormones 09/25/23 montelukast 10 mg tablet 10 mg PO QPM allergies 09/25/23 norethindrone (contraceptive) 0.35 mg tablet (Ana Rosa) 0.35 mg PO DAILY hormones 09/25/23 Hospital Course Operations None Procedures 2-D Echocardiogram Summary of Care Provided Minutes Spent on Discharge: 58 Hospital Course: Patient is a 37-year-old female with a past medical history as outlined which includes autism. She was admitted through the ED on 09/25/2023 with a complaint of fever. Patient was nonverbal and could not give much of a history. History was mainly taken from her mother was present at bedside. Mother stated patient had not been feeling well for about 2 days prior to admission and not had difficulty breathing. She has used her nebulizers without significant improvement. Mother therefore called EMS and she was brought into the hospital. She was saturating at around 89% on room air. On admission she was tachypneic and tachycardic and required up to 4 L of oxygen. COVID and influenza test were negative. EKG showed sinus tachycardia. Urinalysis showed no evidence of UTI. Chest x-ray showed pneumonia of the right lung. She was admitted and managed for acute hypoxic respiratory failure and sepsis due to community-acquired pneumonia. She was started on IV Rocephin and vancomycin as well as Levaquin due to concern for multidrug-resistant organisms. She was initially admitted to the PCU but required amounts of oxygen up to 10 L so she was emergently transferred up to the ICU. CT of the chest showed extensive bilateral infiltrates. She ended up being intubated. Critical care was consulted. Patient had a protracted hospital course and failed multiple breathing trials. Infectious diseases was consulted. Patient required diuresis because of significant positive fluid balance. She was eventually extubated. She did not require IV Solu-Medrol during admission also. Respiratory panel was positive for rhinovirus. Patient was weaned down to 2 L of oxygen and eventually she was transferred out of the ICU. Patient qualified for home oxygen. Patient was ambulatory in the community and required ambulatory home oxygen. She completed a course of IV vancomycin and Zosyn. She was eventually discharged home on 10/06/2023. She was she was discharged on 2 L of oxygen. She is to follow-up with her primary care doctor within 1 to 2 weeks. Patient's mother requested referral to PCP in was started because they were going to return to [place] where they are originally from in 2 weeks and she wanted to be seen before going. Patient was therefore referred to [facility]. Patient was seen and examined prior to discharge. Her mother was by her bedside. She had no active complaints. No concerns noted. Labs and vitals reviewed. Home medication reviewed and reconciled. Physical Exam Const alert and no apparent distress Constitutional Narrative: flat affect General Appearance: cooperative and well developed Orientation / Consciousness: awake HEENT normocephalic, head/scalp atraumatic, hearing grossly normal bilaterally and moist oral mucous membranes Eyes PERRL, EOMs intact bilaterally and conjunctivae normal Neck no lymphadenopathy, supple, no JVD, thyroid normal and no carotid bruits General: trachea midline Lymph Lymphatic: no lymphadenopathy noted and no lymphedema noted Resp Resp Narrative: diminished breath sounds bibasally, few crackles. On 2 L of oxygen by nasal canula Auscultation: Negative for rales, rhonchi or wheezes Cardio regular rate, regular rhythm, S1 normal heart sound, S2 normal heart sound, no murmurs, no rub and no gallops Cardio Narrative: GI normal to inspection, nondistended, normoactive bowel sounds, soft to palpation, non-tender and non-distended Extremity normal capillary refill, no clubbing, cyanosis or edema and no calf tenderness Skin no rashes or lesions noted General Skin Exam: no breakdown Neuro CN's II-XII intact bilaterally and no focal motor deficits Neuro Narrative: nonverbal, awake Sensorium / Orientation: awake and alert Motor Exam: general weakness Psych Psych Narrative: Patient is nonverbal Weight / BMI Weight Weight: 160 lb 11.472 oz Body Mass Index (BMI) 36.0 ABG / Lab / Microbiology Data 10/06/23 05:36 10/06/23 05:36 Laboratory: Laboratory Results - last 24 hr 10/05/23 12:32: POC Glucose 127 H 10/05/23 20:43: POC Glucose 168 H 10/06/23 05:36: WBC 23.5 H, RBC 4.86, Hgb 14.3, Hct 44.9, MCV 92.4, MCH 29.4, MCHC 31.8 L, RDW Std Deviation 45.1 H, RDW Coeff of [place] 13.3, Plt Count 550 H, MPV 8.7, Immature Gran % (Auto) 1.200 H, Neut % (Auto) 83.2 H, Lymph % (Auto) 10.8 L, [place] % (Auto) 3.8, Eos % (Auto) 0.8, Baso % (Auto) 0.2, Absolute Neuts (auto) 19.6 H, Absolute Lymphs (auto) 2.54, Nucleated RBC % 0, Sodium 138, Potassium 4.3, Chloride 104, Carbon Dioxide 26.0, Anion Gap 8, BUN 26 H, Creatinine 0.65, Estim Creat Clear Calc 139.02, Est GFR (MDRD) Af Amer 133, Est GFR (MDRD) Non-Af 110, BUN/Creatinine Ratio 40.1 H, Glucose 119 H, Calcium 8.5 10/06/23 06:37: POC Glucose 118 H Microbiology: Microbiology 09/25/23 08:00 Blood Culture (Wb) - Left Hand Blood Culture - Final No growth in 5 days. 09/25/23 07:20 Blood Culture (Wb) - Left Hand Blood Culture - Final No growth in 5 days. 09/27/23 07:30 Bronchial Lavage - Right Middle Lobe Gram Stain - Final 09/27/23 07:30 Bronchial Lavage - Right Middle Lobe Respiratory Culture - Final Culture exhibits no growth. 09/28/23 15:20 Mucosa - Nasopharyngeal Respiratory Panel (PCR) - Final Rhinovirus 09/27/23 10:15 Gastric Fluid/Contents Gastric Occult Blood - Final Occult Blood Positive 09/25/23 07:55 Urine, Catheterized Urine Culture - Final Culture exhibits no growth. 09/25/23 08:25 Sputum, Expectorated/Coughed Gram Stain - Final 09/25/23 08:25 Sputum, Expectorated/Coughed Respiratory Culture - Final 09/27/23 04:00 Stool Stool Occult Blood (YVETTE) - Final 09/25/23 07:55 Urine Catheter - Catheter Legionella Antigen - Final 09/25/23 07:55 Urine Catheter - Catheter Streptococcus pneumoniae Antigen (M - Final 09/25/23 07:29 Interface Orders Rapid RSV (DFA) - Final 09/25/23 07:20 Nasal Secretion SARS-CoV-2 & FLU Antigen (Rapid) - Final D/C Instructions Discharge Diet: Low fat / Low cholesterol Discharge Activity: Return to Normal Activity Weight Bearing Status: Weight bearing as tolerated Call your doctor if you observe: Fever of 101 or Higher, Shortness of breath, Dizziness, Swelling in the ankles and Chest pain Meaningful Use Info Meaningful Use Diagnoses (Choose all that apply): None applicable Discharge Plan Admission Admit Date/Time: 09/25/23 09:31 Primary Reason for Your Visit: acute hypoxic respitaroty failrue, pneumonia Attending Provider: Yani García Primary Care Provider: BURKE BLACK Consulting Providers: Yahir Tabares; Angel Roa; Omega Chauhan; Jun Wilkinson Instructions Patient Instructions: ED Pneumonia (Adult) Discharge Orders/Prescriptions Prescriptions: Continued albuterol sulfate 2.5 mg /3 mL (0.083 %) solution for nebulization 2.5 mg continuous nebulization Q6H PRN (Reason: shortness of breath) fluticasone propion-salmeterol [Advair HFA] 45-21 mcg/actuation HFA aerosol inhaler 2 inh INHALATION Q12H meclizine 25 mg tablet,chewable 25 mg PO DAILY PRN (Reason: vertigo) norethindrone (contraceptive) [Ana Rosa] 0.35 mg tablet 0.35 mg PO DAILY fluticasone propionate 50 mcg/actuation spray,suspension 2 spray INTRANASAL DAILY famotidine 20 mg tablet 20 mg PO QHS montelukast 10 mg tablet 10 mg PO QPM artificial tears with lanolin Ointment 1 applic EACH EYE DAILY metformin 1,000 mg tablet 1,000 mg PO BID albuterol sulfate 90 mcg/actuation HFA aerosol inhaler 1 inh INHALATION Q6H PRN (Reason: shortness of breath) Align 4 mg capsule 4 mg PO DAILY Patient Comments: PT GETS OTC ALIGN PROBIOTIC cetirizine 10 mg tablet 10 mg PO DAILY Referrals / Follow Up: BURKE BLACK [Other] - Within 2 Weeks Jan Cary MD [Med Staff - Active Staff] - Within 1 Week (see to establish PCP care whilst in [place]) Disposition Disposition (needs filled in before D/C Order can be placed): Home, Self Care Charges/Coding Visit Charges Inpatient E&M: 39492 Disch Hosp >30min
[2023-10-06 13:12] VITALS: BP 112/62; PULSE 86; RESP 18; TEMP 36.6; O2SAT 98
== END 2023-10-06 13:47 | disposition home or self-care (01) | DRG 870 ==
LOC: ED 08:46 → PCU 09:52 → ICU 09-26 20:04 → PCU 10-04 17:01
PROVIDERS: Internal Medicine; Internal Medicine Critical Care Medicine; Admitting Provider Internal Medicine; Emergency Provider Emergency Medicine; Visit Provider Student in an Organized Health Care Education/Training Program
PROC: 0BJ08ZZ Inspection of Tracheobronchial Tree, Via Natural or Artificial Opening Endoscopic (ICD-10-PCS; CPT 31622; principal; 2023-09-27 06:00)
DX: A41.9 Sepsis, unspecified organism (principal); J96.01 Acute respiratory failure with hypoxia; J18.9 Pneumonia, unspecified organism; G93.41 Metabolic encephalopathy; K92.2 Gastrointestinal hemorrhage, unspecified; E87.20 Acidosis, unspecified; Z68.41 Body mass index [BMI] 40.0-44.9, adult; F84.0 Autistic disorder; R65.20 Severe sepsis without septic shock; E66.01 Morbid (severe) obesity due to excess calories; J45.20 Mild intermittent asthma, uncomplicated; E28.2 Polycystic ovarian syndrome; J30.9 Allergic rhinitis, unspecified; K21.9 Gastro-esophageal reflux disease without esophagitis; Z68.39 Body mass index [BMI] 39.0-39.9, adult; R73.9 Hyperglycemia, unspecified; Z79.51 Long term (current) use of inhaled steroids; Z66 Do not resuscitate; Z79.84 Long term (current) use of oral hypoglycemic drugs; B97.89 Other viral agents as the cause of diseases classified elsewhere
CPT/HCPCS: 31500; 31720; 36415; 36600; 71045; 71275; 74230; 80048; 80053; 80202; 81001; 82271; 82274; 82550; 82803; 82962; 83605; 83735; 83880; 84100; 84478; 84484; 85025; 85610; 85730; 87040; 87070; 87086; 87205; 87428; 87449; 87633; 87641; 87807; 92507; 92526; 92610; 92611; 93005; 93306; 94002; 94003; 94640; 94660; 94667; 94668; 94762; 97162; 97166; 97530; 97535; 97802; 97803; 99252; 99285; J7030; J7040; J7050; J7120; Q9957; Q9967; A4216; C8929; G0463; J0295; J1940; J2405; J3490